=== PATIENT | female | born 1955 | race African-American/Black ===

== ENCOUNTER 2019-10-05 12:20 | Outpatient (CLI) | payer MEDICARE, SELFPAY ==
[2019-10-05 13:53] LABS: Alanine Aminotransferase 22 U/L (4-35); Albumin Level 4.2 g/dL (3.5-5.1); Alkaline Phosphatase 174 U/L (38-126); Aspartate Amino Transferase 25 U/L (14-36); Basophils Percent Auto 0.3 % (0.2-1.2); Bilirubin,Total 0.6 mg/dL (0.2-1.3); Blood Urea Nitrogen 19 mg/dL (7-17); Calcium 10.6 mg/dL (8.4-10.2); Carbon Dioxide 29 mmol/L (22-30); Chloride 102 mmol/L (98-107); Cholesterol 127 mg/dL (0-200); Eosinophils Absolute Auto 0.4 K/mm3 (0-0.3); Eosinophils Percent Auto 4.2 % (0-4.4); Estimated Glomerular Filt Rate > 60; Glucose 87 mg/dL (65-105); HDL Direct 48 mg/dL; Hematocrit 38.7 % (37.0-47.0); Immature Granulocyte Absolute 0.05 K/mm3 (0.00-0.031); Immature Granulocyte Percent A 0.6 % (0-0.5); Immature Platelet Fraction Pct 11.1 % (0.9-11.2); Lymphocytes Absolute Auto 1.93 K/mm3 (0.9-3.2); Lymphocytes Percent Auto 22.5 % (18.3-44.2); Mean Corpuscular HGB Conc 33.6 g/dl (32-36); Mean Corpuscular Hemoglobin 25.1 pg (26-34); Mean Corpuscular Volume 74.9 fl (80-100); Mean Platelet Volume 11.3 fl (7.4-10.4); Monocytes Absolute Auto 0.6 K/mm3 (0.1-0.6); Monocytes Percent Auto 6.6 % (2.6-8.5); Neutrophils Absolute Auto 5.6 K/mm3 (1.3-6.7); Neutrophils Percent Auto 65.8 % (45.5-73.1); Platelet Count Result 257 k/mm3 (150-375); Red Blood Count 5.17 M/mm3 (4.2-5.4); Sodium 140 mmol/L (137-145); Triglycerides 78 mg/dL (<150); White Blood Count 8.6 K/mm3 (4.5-10.0)
[2019-10-05 13:59] LABS: Hemoglobin A1C 5.2 % (<5.7)
[2019-10-05 14:05] LABS: LDL Cholesterol Direct 37 mg/dL
[2019-10-05 14:21] LABS: Parathyroid Intact 121.1 pg/mL (7.5-53.5)
[2019-10-05 14:25] LABS: Vitamin D 25 Hydroxy 52.8 ng/mL
[2019-10-08 19:45] LABS: Ionized Calcium 5.8 mg/dL (4.8-5.6)
== END 2019-10-05 12:21 | disposition home or self-care (01) ==
PROVIDERS: PCP Family Medicine; Visit Provider Family Medicine
DX: E78.5 Hyperlipidemia, unspecified (principal); E55.9 Vitamin D deficiency, unspecified; R63.2 Polyphagia; Z13.29 Encounter for screening for other suspected endocrine disorder; R73.9 Hyperglycemia, unspecified; I10 Essential (primary) hypertension
CPT/HCPCS: 36415; 80053; 80061; 82248; 82306; 82330; 83036; 83970; 84443; 85025; 85055

== ENCOUNTER 2020-06-25 11:00 | Emergency (ER) | payer MEDICARE, SELFPAY ==
--- NOTE | ~2020-06-25 | XR_ITS ---
EXAMINATION: XR chest 2V 06/25/2020 12:25 INDICATION: Dyspnea, wheezing. Hypertension. PROCEDURE: 2 view chest COMPARISON: 04/01/2019 FINDINGS: The lungs are clear. The cardiomediastinal silhouette is within normal limits. There are no pleural effusions. There is no pneumothorax suspected. IMPRESSION: 1: NO ACUTE CARDIOPULMONARY DISEASE. Reviewed, dictated and finalized at location A. [employer]
--- NOTE | 2020-06-25 11:11 | ED.SOB ---
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 Patient noted to have increased work of breathing, audible wheezing and was sent to our emergency department for evaluation. At the time of assessment, patient has no complaints. She denies any chest pain, shortness of breath. She does report some mild wheezing which she experiences quite chronically over the past several years. She denies any leg swelling, calf pain. She denies pleuritic pain. She denies fever, chills, cough, rhinorrhea or congestion. She denies recent sick contacts. Patient states she feels like this all the time and her breathing is no different than it typically is. Patient has never been diagnosed with COPD or emphysema. She is a prior smoker. Per nursing report, patient had audible wheezing and increased work of breathing after ambulating from triage. Related Data Home Medications Medication Instructions Recorded Confirmed aspirin [Adult Aspirin] 81 mg PO DAILY 06/25/20 calcium phos,dibas-vitamin D3 tablet PO 06/25/20 06/25/20 [Vitamin D (with calcium)] chlorthalidone 25 mg PO 06/25/20 losartan 50 mg PO 06/25/20 Allergies Allergy/AdvReac Type Severity Reaction Status Date / Time No Known Allergies Allergy Unverified 06/25/20 11:20 Review of Systems Review of Systems: Narrative: CONSTITUTIONAL: Denies fever, chills, or sweats. ENT: Denies rhinorrhea, congestion, sore throat, or otalgia. CARDIOVASCULAR: Denies chest pain, palpitations, or leg edema. RESPIRATORY: Denies cough or dyspnea. However, patient noted to be dyspneic with wheezing when coming from triage. GASTROINTESTINAL: Denies abdominal pain, nausea, vomiting, or diarrhea. GENITOURINARY: Denies dysuria or hematuria. SKIN: Denies rash or itching. MUSCULOSKELETAL: Denies back pain, joint pain, or myalgia. NEUROLOGIC: Denies headache, numbness, or weakness. FOR[facility]LY [facility] Past Medical History Medical History Anemia GI bleeding Hypertension Osteoporosis Urinary tract infection Surgical History Surgical History History of tonsillectomy Social History Social History (Updated 06/25/20 @ 11:32 by Doreen Manzo MD) Smoking status: Former smoker Tobacco type: cigarettes Alcohol intake: never Substance use: never Gender identity (if verbalized by the patient): Female Exam Narrative: Exam Narrative: GENERAL: Awake, alert, conversant HEAD: Normocephalic, atraumatic. EYES: PERRLA and EOMI. ENT: Nares clear, no rhinorrhea or epistaxis. Mucous membranes moist. NECK: Supple. CHEST: No respiratory distress, breathing even and non labored, slight expiratory wheezing noted on auscultation of lungs, present bilaterally, no tachypnea HEART: Regular rate, sinus rhythm ABDOMEN:Non distended, non tender EXTREMITIES: Normal range of motion. No edema. SKIN: Warm, dry, no rash. NEURO:No focal deficits. 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 Patient does
[2020-06-25 11:12] VITALS: BP 182/92; PULSE 72; RESP 18; TEMP 36.7; O2SAT 100
[2020-06-25 11:19] VITALS: PULSE 68
[2020-06-25 11:39] VITALS: PULSE 68; RESP 18
[2020-06-25] MEDS: ALBUTEROL SULFATE NEB 2.5 MG/0.5 ML INH 5 MG INHALATION (11:39)
[2020-06-25] MEDS: IPRATROPIUM BR 0.02% INH SOLN 0.5 MG/2.5 ML VIAL INHALATION (11:40)
[2020-06-25 11:47] VITALS: BP 183/84; PULSE 70; RESP 11; O2SAT 100
[2020-06-25 11:52] VITALS: PULSE 68; RESP 18
[2020-06-25 12:03] LABS: NT Pro B Type Natriuretic Pept 116 PG/ML (5-100)
[2020-06-25] MEDS: predniSONE 20 MG TABLET 60 MG PO (12:37)
[2020-06-25 13:29] LABS: Basophils Absolute Auto 0.1 K/mm3 (0.0-0.1); Basophils Percent Auto 0.5 % (0.2-1.2); Eosinophils Absolute Auto 0.4 K/mm3 (0-0.3); Eosinophils Percent Auto 3.5 % (0-4.4); Hematocrit 40.2 % (37.0-47.0); Hemoglobin 13.7 g/dL (12.0-15.0); Immature Granulocyte Absolute 0.04 K/mm3 (0.00-0.031); Immature Granulocyte Percent A 0.4 % (0-0.5); Lymphocytes Absolute Auto 2.24 K/mm3 (0.9-3.2); Lymphocytes Percent Auto 21.2 % (18.3-44.2); Mean Corpuscular HGB Conc 34.1 g/dl (32-36); Mean Corpuscular Hemoglobin 27.3 pg (26-34); Mean Corpuscular Volume 80.1 fl (80-100); Mean Platelet Volume 12.4 fl (7.4-10.4); Monocytes Absolute Auto 0.8 K/mm3 (0.1-0.6); Monocytes Percent Auto 7.3 % (2.6-8.5); Neutrophils Absolute Auto 7.1 K/mm3 (1.3-6.7); Neutrophils Percent Auto 67.1 % (45.5-73.1); Platelet Count Result 249 k/mm3 (150-375); Red Blood Count 5.02 M/mm3 (4.2-5.4); Red Cell Distribution Width 14.7 % (11.5-14.5); White Blood Count 10.6 K/mm3 (4.5-10.0)
[2020-06-25 13:40] LABS: Anion Gap 8 mmol/L (8-16); Blood Urea Nitrogen 18 mg/dL (7-17); Calcium 10.7 mg/dL (8.4-10.2); Carbon Dioxide 31 mmol/L (22-30); Chloride 101 mmol/L (98-107); Estimated CRCL calculation 93 ml/min; Estimated Glomerular Filt Rate > 60; Glucose 107 mg/dL (65-105); Sodium 140 mmol/L (137-145)
[2020-06-25 13:46] LABS: Potassium 4.2 mmol/L (3.4-5.0)
[2020-06-25 13:50] VITALS: BP 182/77; PULSE 68; RESP 18; O2SAT 98
== END 2020-06-25 13:51 | disposition home or self-care (01) ==
PROVIDERS: Emergency Provider Emergency Medicine; PCP Family Medicine
DX: R06.2 Wheezing (principal); I10 Essential (primary) hypertension; Z86.2 Personal history of diseases of the blood and blood-forming organs and certain disorders involving the immune mechanism; Z79.82 Long term (current) use of aspirin; M81.0 Age-related osteoporosis without current pathological fracture; Z87.440 Personal history of urinary (tract) infections; Z87.891 Personal history of nicotine dependence
CPT/HCPCS: 36415; 71046; 80048; 83880; 85025; 94640; 99283; J7512

== ENCOUNTER 2020-11-27 09:36 | Outpatient (CLI) | payer MEDICARE, SELFPAY ==
--- NOTE | ~2020-11-27 | CT_ITS ---
EXAMINATION: CT brain wo con DATE: 11/27/2020 10:16 INDICATION: Transient altered mental status TECHNIQUE: Computed tomography (CT) of the head was performed without intravenous contrast. The dose- length product was 605.33 mGy-cm. No prior studies for comparison. COMPARISON: CT dated 03/27/2019 FINDINGS: Generalized atrophy. There are multiple chronic bilateral lacunar infarctions There are sca ttered moderate periventricular and subcortical white matter changes, most likely related to small ve ssel ischemic disease (microangiopathy). No ventriculomegaly or midline shift. Basilar cisterns are p atent. There is intracranial atherosclerosis. Paranasal sinuses and mastoids are pneumatized. No depr essed skull fractures. IMPRESSION: 1. No acute intracranial abnormality. 2: Chronic bilateral lacunar infarctions. 3: Chronic age-related findings. Reviewed, dictated and finalized at location B.
== END 2020-11-27 09:37 | disposition home or self-care (01) ==
PROVIDERS: PCP Family Medicine; Visit Provider Nurse Practitioner Family
DX: R41.82 Altered mental status, unspecified (principal); R93.0 Abnormal findings on diagnostic imaging of skull and head, not elsewhere classified
CPT/HCPCS: 70450

== ENCOUNTER 2020-11-27 20:42 | Inpatient (IN) | payer MEDICARE, SELFPAY ==
--- NOTE | ~2020-11-27 | XR_ITS ---
EXAMINATION: XR chest 2V EXAM DATE: 11/28/2020 14:07 INDICATION: Wheezing and leukocytosis. TECHNIQUE: Frontal and lateral projections of the chest obtained and reviewed. Comparison is made to prior examination from 06/25/2020. FINDINGS: The lungs are clear. There are no pleural effusions. Cardiac silhouette is prominent but magnified on this AP technique. There is no pneumothorax suspected. The bones and soft tissues are unremarkable. IMPRESSION: No acute cardiopulmonary findings. Reviewed, dictated and finalized at location A.
--- NOTE | ~2020-11-27 | US_ITS ---
EXAMINATION:US venous doppler LE RT INDICATION:Right lower extremity pain TECHNIQUE: Multiple grayscale, color flow and Doppler images of the right lower extremity deep venous systems were obtained and reviewed. COMPARISON:No prior studies for comparison. FINDINGS: The common femoral, superficial femoral and popliteal veins demonstrate normal respiratory variation, augmentation and compressibility. Color flow is also seen within the posterior tibial, pe roneal, greater saphenous and profunda veins. IMPRESSION: 1: No lower extremity deep venous thrombosis. Reviewed, dictated and finalized at location B.
[2020-11-27 21:43] VITALS: BP 147/74; PULSE 78; RESP 18; TEMP 36.1; O2SAT 100
[2020-11-27 22:03] LABS: Basophils Absolute Auto 0.1 K/mm3 (0.0-0.1); Basophils Percent Auto 0.5 % (0.2-1.2); Eosinophils Absolute Auto 0.1 K/mm3 (0-0.3); Eosinophils Percent Auto 1.2 % (0-4.4); Hematocrit 39.1 % (37.0-47.0); Hemoglobin 13.4 g/dL (12.0-15.0); Immature Granulocyte Absolute 0.06 K/mm3 (0.00-0.031); Immature Granulocyte Percent A 0.5 % (0-0.5); Lymphocytes Absolute Auto 1.47 K/mm3 (0.9-3.2); Lymphocytes Percent Auto 13.2 % (18.3-44.2); Mean Corpuscular HGB Conc 34.3 g/dl (32-36); Mean Corpuscular Hemoglobin 26.6 pg (26-34); Mean Corpuscular Volume 77.7 fl (80-100); Mean Platelet Volume 11.2 fl (7.4-10.4); Monocytes Absolute Auto 1.2 K/mm3 (0.1-0.6); Monocytes Percent Auto 10.9 % (2.6-8.5); Neutrophils Absolute Auto 8.2 K/mm3 (1.3-6.7); Neutrophils Percent Auto 73.7 % (45.5-73.1); Platelet Count Result 278 k/mm3 (150-375); Red Blood Count 5.03 M/mm3 (4.2-5.4); Red Cell Distribution Width 14.4 % (11.5-14.5); White Blood Count 11.1 K/mm3 (4.5-10.0)
[2020-11-27 22:13] LABS: Alanine Aminotransferase 22 U/L (4-35); Albumin Level 3.7 g/dL (3.5-5.1); Alkaline Phosphatase 116 U/L (38-126); Anion Gap 4 mmol/L (8-16); Aspartate Amino Transferase 27 U/L (14-36); Bilirubin,Total 0.4 mg/dL (0.2-1.3); Blood Urea Nitrogen 17 mg/dL (7-17); Calcium 10.7 mg/dL (8.4-10.2); Carbon Dioxide 33 mmol/L (22-30); Chloride 104 mmol/L (98-107); Estimated Glomerular Filt Rate > 60; Glucose 114 mg/dL (65-105); INR 0.9; Potassium 3.6 mmol/L (3.4-5.0); Prothrombin Time 13.2 Seconds (11.1-14.7); Sodium 141 mmol/L (137-145)
[2020-11-27 22:15] LABS: Partial Thromboplastin Time 24.2 SECONDS (22.3-36.8)
[2020-11-27 22:22] LABS: NT Pro B Type Natriuretic Pept 155 pg/mL (5-100)
[2020-11-27 23:07] VITALS: BP 149/79; PULSE 75; RESP 16; TEMP 35.9; O2SAT 99
[2020-11-27 23:35] VITALS: PULSE 80; RESP 16; O2SAT 98
[2020-11-27 23:47] VITALS: PULSE 79; RESP 20
--- NOTE | 2020-11-27 23:57 | ED.EXTPRO ---
HPI - Extremity Problem General Chief complaint: Extremity Problem,Nontraumatic Stated complaint: R leg weeping Time Seen by Provider: 11/27/20 23:33 Source: patient Mode of arrival: ambulatory Limitations: no limitations History of Present Illness HPI Narrative: Patient is a 65-year-old female complaining of right lower extremity pain, redness, swelling and wound which she states started approximately a week ago and worse the past few days. Patient denies any chest pain, shortness of breath abdominal pain, nausea, vomiting, fever or chills. Related Data Home Medications Medication Instructions Recorded Confirmed aspirin [Adult Aspirin] 81 mg PO DAILY 06/25/20 calcium phos,dibas-vitamin D3 tablet PO 06/25/20 06/25/20 [Vitamin D (with calcium)] chlorthalidone 25 mg PO 06/25/20 losartan 50 mg PO 06/25/20 Allergies Allergy/AdvReac Type Severity Reaction Status Date / Time No Known Allergies Allergy Verified 11/27/20 21:45 Review of Systems Review of Systems: All systems reviewed & are unremarkable except as noted in HPI and below Constitutional: Constitutional: Denies body ache(s), Denies chills, Denies excessive sweating, Denies fatigue, Denies fever(s), Denies headache(s), Denies lethargy, Denies malaise, Denies weakness and Denies weight loss Eyes: Eyes: Denies blurry vision, Denies change in vision and Denies loss of vision ENT: Denies dizziness, Denies ear discharge, Denies headache(s), Denies lip swelling, Denies epistaxis, Denies nasal congestion, Denies neck pain, Denies throat swelling and Denies tongue swelling Cardiovascular: Cardiovascular: Denies chest pain, Denies chest pain at rest, Denies chest pain with activity, Denies diaphoresis, Denies rapid heart rate, Denies edema, Denies irregular heart rhythm, Denies lightheadedness, Denies palpitations, Denies dyspnea and Denies dyspnea on exertion Respiratory: Respiratory: Denies chest congestion, Denies cough, Denies hemoptysis, Denies dyspnea and Denies dyspnea on exertion Gastrointestinal: Gastrointestinal: Denies abdominal pain, Denies melena, Denies hematochezia, Denies diarrhea, Denies nausea, Denies vomiting and Denies hematemesis Musculoskeletal: Musculoskeletal: Denies abnormal gait, Denies deformity, Denies joint swelling, Denies limited range of motion, Denies neck pain and Denies numbness Neurologic: Denies Abnormal speech present, Denies abnormal gait, Denies confusion, Denies dizziness, Denies headache(s), Denies focal weakness, Denies loss of vision, Denies numbness, Denies Other visual disturbances, Denies Sensory deficit (Neuro) and Denies weakness Psychiatric: Psychiatric: Denies confusion, Denies depression, Denies auditory hallucinations, Denies homicidal ideation and Denies suicidal ideation Endocrine: Endocrine: Denies cold intolerance, Denies excessive sweating, Denies fatigue, Denies heat intolerance and Denies palpitations Hematologic/Lymphatic: Hematologic/Lymphatic: Denies easy bleeding and Denies easy bruising Allergic/Immunologic: Allergic/Immunologic: Denies lip swelling, Denies throat swelling and Denies tongue swelling PMFSH Past Medical History Medical History Anemia GI bleeding Hypertension Osteoporosis Urinary tract infection Surgical History Surgical History History of tonsillectomy Social History Social History Smoking status: Former smoker Tobacco type: cigarettes Alcohol intake: never Substance use: never Gender identity (if verbalized by the patient): Female Exam Const: General: cooperative, healthy appearing, comfortable, no acute distress, well developed, alert and awake; No confusion Orientation/consciousness: oriented to person, oriented to place, oriented to time, patient oriented x3 and No confusion Limitations: no limit
[2020-11-28] VITALS (14 sets, daily range): BP systolic 133–159; BP diastolic 63–74; PULSE 68–88; RESP 12–21; TEMP 36.6–37.1; O2SAT 92–100; BMI 42.1
[2020-11-28] MEDS: HYDROmorphone HCL INJ (*CRX) 1 MG/ML SYR 0.5 MG IV PUSH ×2 (00:35→02:55)
[2020-11-28] MEDS: HYDROcodone/acetaminophen (*CRX) 5-325 MG TABLET 1 TAB PO (00:41)
--- NOTE | 2020-11-28 03:02 | ADMGEN ---
This patient, Rosina Soria, was admitted to 2 Medical Room 245-. Patient/family oriented to hospital policies and general routines including ID bracelet, bed and alarms, visiting hours, pain management, procedures, bathroom and other care routines, personal items, smoking policy, room service/diet, and visiting hours. Information on how to activate the Rapid Response Team has been discussed. Patient/Family are encouraged to report perceived risks to care and to ask questions if they do not understand what they are told or what they should do.
[2020-11-28] MEDS: LOSARTAN POTASSIUM 50 MG TABLET PO (08:56)
[2020-11-28] MEDS: CHLORTHALIDONE 25 MG TABLET PO (08:56)
[2020-11-28] MEDS: ENOXAPARIN 40 MG/0.4 ML SYRINGE SUB-Q (08:57)
[2020-11-28] MEDS: ASPIRIN 81 MG ENTERIC TABLET PO (08:57)
[2020-11-28] MEDS: traMADol HCL (*CRX) 25 MG TABLET PO ×3 (08:59→20:04)
[2020-11-28] MEDS: ALBUTEROL SULFATE (*SP) AEROSOL 1 PUFF 2 PUFF INHALATION (10:03)
--- NOTE | 2020-11-28 13:04 | PM.IMHP ---
H&P: HPI History of Present Illness Date/Time: 11/28/20 13:04 Chief Complaint: Leg wound Narrative: This is a 65 year old woman with history of HTN, hyperparathyroidism, who presented to the ER with complaints of increased weeping to her right lower extremity for the last 2 weeks. Patient states she has not is increased weeping to her legs. The patient's daughter states she sleeps in a chair with her legs on the floor. Over the last 2 weeks she has had increased weeping of her right leg as well as increased pain. She saw her PCP but stated nothing was done and so they came to the ER. The patient has not been able to get around very well at home on her own. Denies any fevers, chills, chest pain, shortness of breath, cough, nausea, vomiting, abdominal pain, leg swelling, redness, lightheadedness, dizziness, urinary symptoms or any other symptoms at this time. Vitals show she is afebrile, non tachycardic, normal respiratory rate and oxygenation on room air, blood pressure slightly elevated at 140 7/74. Initial labs show slight elevation of WBCs at 11,100, with a left shift to 73%. Normal coag panel. Normal CMP other than slightly elevated CO2 at 33, glucose 114, Calcium 10.7. Normal LFTs. BNP slightly elevated at 155. CT Head showed no acute intracranial abnormality. Chronic bilateral lacunar infarctions. Chronic age-related findings. Code Status- Full Code POA- DaughterKirstie PCP- Dr. Arroyo Review of Systems Review of Systems: All systems reviewed & are unremarkable except as noted in HPI and below PMFSH Past Medical History Medical History Anemia GI bleeding Hyperparathyroidism Hypertension Osteoporosis Urinary tract infection Surgical History Surgical History History of tonsillectomy Social History Social History (Updated 11/28/20 @ 13:26 by Deborah Cespedes PA-C) Smoking status: Never smoker Tobacco type: cigarettes Alcohol intake: never Substance use: never Living arrangements: with family Additional living arrangements comments: Lives with Daughter Kirstie Occupation/Education: retired Gender identity (if verbalized by the patient): Female Spiritual care concerns: No Meds Home Medications and Allergies Home Medications Medication Instructions Recorded Confirmed Type aspirin [Adult Aspirin] 81 mg PO DAILY 06/25/20 11/28/20 History calcium phos,dibas-vitamin D3 See Rx Instructions .ROUTE .COMPLEX 06/25/20 11/28/20 History [Vitamin D (with calcium)] chlorthalidone 25 mg PO DAILY 06/25/20 11/28/20 History losartan 50 mg PO DAILY 06/25/20 11/28/20 History prednisone 60 mg PO DAILY 5 Days #15 tablet 06/25/20 11/28/20 Rx Allergies Allergy/AdvReac Type Severity Reaction Status Date / Time No Known Allergies Allergy Verified 11/27/20 21:45 Vital Signs Vital Signs - 24 hr 11/27/20 21:43 11/27/20 23:07 11/27/20 23:35 Temperature 97.0 F L 96.6 F L Pulse Rate 78 75 80 Respiratory Rate 18 16 16 Blood Pressure 147/74 H 149/79 H Pulse Oximetry 100 99 98 11/27/20 23:47 11/28/20 00:01 11/28/20 00:29 Temperature Pulse Rate 79 78 79 Respiratory Rate 20 17 18 Blood Pressure Pulse Oximetry 11/28/20 00:31 11/28/20 00:39 11/28/20 01:16 Temperature Pulse Rate 88 81 70 Respiratory Rate 18 16 13 Blood Pressure 159/68 H Pulse Oximetry 11/28/20 01:30 11/28/20 01:45 11/28/20 02:00 Temperature Pulse Rate 73 69 68 Respiratory Rate 12 13 12 Blood Pressure Pulse Oximetry 96 11/28/20 02:15 11/28/20 02:50 11/28/20 06:25 Temperature 98.1 F 98.6 F Pulse Rate 71 75 84 Respiratory Rate 12 20 21 H Blood Pressure 140/74 148/66 H Pulse Oximetry 96 98 100 11/28/20 08:51 Temperature Pulse Rate Respiratory Rate Blood Pressure Pulse Oximetry 92 Exam Narrative: Exam Narrative: General: 65-year-old w
[2020-11-28] MEDS: SILVERGEL (ELTA) 45 ML 1 APPLIC TOPICAL (16:37)
[2020-11-28] MEDS: ACETAMINOPHEN 325 MG TABLET 650 MG PO (21:17)
[2020-11-29] MEDS: traMADol HCL (*CRX) 50 MG TABLET PO ×4 (01:25→21:04)
[2020-11-29] MEDS: ACETAMINOPHEN 325 MG TABLET 650 MG PO ×2 (04:25→08:11)
[2020-11-29 05:43] LABS: Basophils Percent Auto 0.3 % (0.2-1.2); Eosinophils Absolute Auto 0.2 K/mm3 (0-0.3); Eosinophils Percent Auto 1.7 % (0-4.4); Hematocrit 38.3 % (37.0-47.0); Hemoglobin 12.8 g/dL (12.0-15.0); Immature Granulocyte Absolute 0.05 K/mm3 (0.00-0.031); Immature Granulocyte Percent A 0.4 % (0-0.5); Lymphocytes Absolute Auto 1.62 K/mm3 (0.9-3.2); Mean Corpuscular HGB Conc 33.4 g/dl (32-36); Mean Corpuscular Hemoglobin 26.3 pg (26-34); Mean Corpuscular Volume 78.8 fl (80-100); Mean Platelet Volume 10.8 fl (7.4-10.4); Monocytes Absolute Auto 1.1 K/mm3 (0.1-0.6); Monocytes Percent Auto 9.6 % (2.6-8.5); Neutrophils Absolute Auto 8.6 K/mm3 (1.3-6.7); Platelet Count Result 296 k/mm3 (150-375); Red Blood Count 4.86 M/mm3 (4.2-5.4); Red Cell Distribution Width 14.4 % (11.5-14.5); White Blood Count 11.6 K/mm3 (4.5-10.0)
[2020-11-29 05:59] LABS: Anion Gap 3 mmol/L (8-16); Blood Urea Nitrogen 15 mg/dL (7-17); Calcium 10.7 mg/dL (8.4-10.2); Carbon Dioxide 33 mmol/L (22-30); Chloride 104 mmol/L (98-107); Estimated CRCL calculation 75 ml/min; Estimated Glomerular Filt Rate > 60; Glucose 90 mg/dL (65-105); Magnesium 1.9 mg/dL (1.6-2.3); Potassium 3.4 mmol/L (3.4-5.0); Sodium 140 mmol/L (137-145)
[2020-11-29 06:00] VITALS: BP 154/80; PULSE 75; RESP 18; TEMP 36.4; O2SAT 96
[2020-11-29] MEDS: CHLORTHALIDONE 25 MG TABLET PO (09:55)
[2020-11-29] MEDS: LOSARTAN POTASSIUM 50 MG TABLET PO (09:55)
[2020-11-29] MEDS: ENOXAPARIN 40 MG/0.4 ML SYRINGE SUB-Q (09:55)
[2020-11-29] MEDS: ASPIRIN 81 MG ENTERIC TABLET PO (09:55)
[2020-11-29] MEDS: SILVERGEL (ELTA) 45 ML 1 APPLIC TOPICAL (09:56)
[2020-11-29] MEDS: ALBUTEROL SULFATE (*SP) AEROSOL 1 PUFF 2 PUFF INHALATION (09:59)
--- NOTE | 2020-11-29 10:06 | PM.IMPN ---
Progress Note: A&P Assessment and Plan (1) Leukocytosis: Code(s): D72.829 - Elevated white blood cell count, unspecified Status: Acute Assessment and Plan: Patient had leukocytosis on arrival. Started on IV Zosyn for possible cellulitis, but after wound care evaluated it there was no signs of infection. I checked chest x-ray yesterday which shows no acute cardiopulmonary disease. Will check a urinalysis, but the patient denies any urinary symptoms at this time. The UA could also be abnormal since she has already received a few doses of antibiotics before was discontinued. Will recheck labs in the morning. (2) Leg wound, right: Qualifiers: Encounter type: initial encounter Qualified Code(s): S81.801A - Unspecified open wound, right lower leg, initial encounter Code(s): S81.801A - Unspecified open wound, right lower leg, initial encounter Status: Acute Assessment and Plan: Patient was admitted to the hospital for right leg cellulitis, with further evaluation examination the patient has chronic venous stasis with open weeping wounds to anterior and posterior lower extremity. Wound care and myself evaluated the patient and after cleaning the patient's leg well we found normal tissue. No signs of deep ulcerations or cellulitis. At this time I will discontinue IV antibiotics. Do not believe she has an acute cellulitis infection. Will continue wound care's recommendations. Daily apply silver gel to open wound on the right lower leg, cover with ABD pad and roll gauze. Cleanse legs and feet daily with soap and water. apply lotion to closed dry scale areas. (3) Chronic venous stasis: Code(s): I87.8 - Other specified disorders of veins Status: Acute Assessment and Plan: See above. (4) Hypertension: Code(s): I10 - Essential (primary) hypertension Status: Inactive Assessment and Plan: BP this morning 148/66 prior to her home medications being given. Continue monitoring. (5) Hyperparathyroidism: Code(s): E21.3 - Hyperparathyroidism, unspecified Status: Inactive Assessment and Plan: Continue Vitamin D upon discharge. Follow up with PCP. (6) Weakness: Code(s): R53.1 - Weakness Status: Acute Assessment and Plan: Most likely from deconditioning. Could also be from leg pain and symptoms. Ordered PT/OT for further evaluation (7) Leg pain: Code(s): M79.606 - Pain in leg, unspecified Status: Acute Assessment and Plan: Having significant leg pain when someone is touching her but also when no one is in her room. Unsure exactly how much pain she is in. Will treat with Tylenol and tramadol p.r.n.. (8) Wheezing: Code(s): R06.2 - Wheezing Status: Acute Assessment and Plan: Patient had wheezing on examination. She denies smoking history. Will order chest x-ray Will order albuterol inhaler p.r.n. for wheezing or shortness of breath. Patient is otherwise asymptomatic. Continue monitoring. Additional Plan ADMITTED UNDER OBSERVATION Time Spent With Patient Time with patient: 25 - 35 minutes Subjective Date/time seen: 11/29/20 10:06 Interval history: Date of service 11/29/2020: Patient states she is feeling well today. Still having some intermittent leg pains mostly to the back of her legs. Denies any fevers, chills, nausea, vomiting, abdominal pain, diarrhea, constipation, chest pain, shortness of breath, cough, dysuria, frequent urination, odor to urine or any other symptoms at this time. Review of Systems Review of Systems: All systems reviewed & are unremarkable except as noted in HPI and below Exam Narrative: Exam Narrative: General: 65-year-old woman sitting up in bed watching TV. Appears comfortable. In no acute distress. Skin: No jaundice or
[2020-11-29 14:20] VITALS: BP 117/52; PULSE 90; RESP 18; TEMP 36.1; O2SAT 95
[2020-11-29 17:01] LABS: Add Urine Microscopic? YES; Appearance Urine Clear (Clear); Bilirubin Urine Negative (Negative); Blood Urine Negative (Negative); Color Urine Yellow (Yellow); Glucose Urine UA Negative (Negative); Ketones Urine Negative (Negative); Leukocyte Esterase Ur Negative LEU/UL (Negative); Mucus Urine Rare /lpf; Nitrate Urine Negative (Negative); Protein Urine 1+ mg/dL (Negative); RBC Urine 0-2 /hpf (0-2); Specific Grav Ur 1.019 (1.001-1.035); Squamous Epithelial Cell Urine Rare /hpf (Few); WBC Urine 0-3 /hpf
[2020-11-29 22:00] VITALS: BP 128/88; PULSE 95; RESP 18; TEMP 36.2; O2SAT 96
[2020-11-30] MEDS: traMADol HCL (*CRX) 50 MG TABLET PO ×3 (03:37→13:23)
[2020-11-30 06:00] VITALS: BP 148/86; PULSE 83; RESP 20; TEMP 36.2; O2SAT 96
[2020-11-30 06:24] LABS: Basophils Percent Auto 0.3 % (0.2-1.2); Eosinophils Absolute Auto 0.2 K/mm3 (0-0.3); Eosinophils Percent Auto 1.6 % (0-4.4); Hematocrit 37.8 % (37.0-47.0); Hemoglobin 12.8 g/dL (12.0-15.0); Immature Granulocyte Absolute 0.07 K/mm3 (0.00-0.031); Immature Granulocyte Percent A 0.5 % (0-0.5); Lymphocytes Absolute Auto 1.66 K/mm3 (0.9-3.2); Lymphocytes Percent Auto 12.2 % (18.3-44.2); Mean Corpuscular HGB Conc 33.9 g/dl (32-36); Mean Corpuscular Hemoglobin 26.4 pg (26-34); Mean Corpuscular Volume 78.1 fl (80-100); Mean Platelet Volume 10.6 fl (7.4-10.4); Monocytes Absolute Auto 1.2 K/mm3 (0.1-0.6); Monocytes Percent Auto 8.5 % (2.6-8.5); Neutrophils Absolute Auto 10.5 K/mm3 (1.3-6.7); Neutrophils Percent Auto 76.9 % (45.5-73.1); Platelet Count Result 315 k/mm3 (150-375); Red Blood Count 4.84 M/mm3 (4.2-5.4); Red Cell Distribution Width 14.4 % (11.5-14.5); White Blood Count 13.6 K/mm3 (4.5-10.0)
[2020-11-30 06:33] LABS: Anion Gap 1 mmol/L (8-16); Blood Urea Nitrogen 17 mg/dL (7-17); Calcium 10.6 mg/dL (8.4-10.2); Carbon Dioxide 36 mmol/L (22-30); Chloride 101 mmol/L (98-107); Estimated CRCL calculation 75 ml/min; Estimated Glomerular Filt Rate > 60; Glucose 92 mg/dL (65-105); Magnesium 1.8 mg/dL (1.6-2.3); Potassium 3.8 mmol/L (3.4-5.0); Sodium 138 mmol/L (137-145)
[2020-11-30] MEDS: LOSARTAN POTASSIUM 50 MG TABLET PO (08:00)
[2020-11-30] MEDS: ENOXAPARIN 40 MG/0.4 ML SYRINGE SUB-Q (08:00)
[2020-11-30] MEDS: ASPIRIN 81 MG ENTERIC TABLET PO (08:00)
[2020-11-30] MEDS: CHLORTHALIDONE 25 MG TABLET PO (08:00)
[2020-11-30] MEDS: SILVERGEL (ELTA) 45 ML 1 APPLIC TOPICAL (08:00)
--- NOTE | 2020-11-30 09:16 | PM.IMPN ---
Progress Note: A&P Assessment and Plan (1) Cellulitis of right lower extremity: Code(s): L03.115 - Cellulitis of right lower limb Status: Acute Assessment and Plan: Patient had leukocytosis on arrival. Started on IV Zosyn for possible cellulitis, but after wound care evaluated it there was no signs of infection. I checked chest x-ray yesterday which shows no acute cardiopulmonary disease. Urinalysis unremarkable. 11/30/20- leukocytosis increasing and neutrophils. On examination today, more prominent Cellulitis to right anterolateral lower extremity. Will obtain wound culture, blood cultures and start IV Zosyn. Will recheck labs in the morning. (2) Leg wound, right: Qualifiers: Encounter type: initial encounter Qualified Code(s): S81.801A - Unspecified open wound, right lower leg, initial encounter Code(s): S81.801A - Unspecified open wound, right lower leg, initial encounter Status: Acute Assessment and Plan: Patient was admitted to the hospital for right leg cellulitis, with further evaluation examination the patient has chronic venous stasis with open weeping wounds to anterior and posterior lower extremity. Wound care and myself evaluated the patient and after cleaning the patient's leg well we found normal tissue. No signs of deep ulcerations or cellulitis. At this time I will discontinue IV antibiotics 11/28. Continue wound care's recommendations- Daily apply silver gel to open wound on the right lower leg, cover with ABD pad and roll gauze. Cleanse legs and feet daily with soap and water. apply lotion to closed dry scale areas. 11/30/20- increased redness, warmth to right lower extremity signs of cellulitis. Will start Abx. (3) Chronic venous stasis: Code(s): I87.8 - Other specified disorders of veins Status: Acute Assessment and Plan: See above. (4) Hypertension: Code(s): I10 - Essential (primary) hypertension Status: Inactive Assessment and Plan: BP this morning 148/86, slightly elevated, prior to her home medications being given. Continue monitoring. (5) Hyperparathyroidism: Code(s): E21.3 - Hyperparathyroidism, unspecified Status: Inactive Assessment and Plan: Continue Vitamin D upon discharge. Follow up with PCP. (6) Weakness: Code(s): R53.1 - Weakness Status: Acute Assessment and Plan: Most likely from deconditioning vs acute infection. Could also be from leg pain and symptoms. Ordered PT/OT for further evaluation (7) Leg pain: Code(s): M79.606 - Pain in leg, unspecified Status: Acute Assessment and Plan: Having significant leg pain when someone is touching her but also when no one is in her room. Unsure exactly how much pain she is in. No DVT noted to lower extremities. On Lovenox for DVT prophylasix. Will treat with Tylenol and tramadol p.r.n.. (8) Wheezing: Code(s): R06.2 - Wheezing Status: Acute Assessment and Plan: Patient had wheezing on examination. Prior history of smoking 10 years ago. Chest x-ray shows no acute abnormality. Continue albuterol inhaler p.r.n. for wheezing or shortness of breath. Patient is otherwise asymptomatic. Continue monitoring. Time Spent With Patient Time with patient: 25 - 35 minutes Subjective Date/time seen: 11/30/20 09:16 Interval history: Date of service 11/30/2020: Patient states she is feeling well today. She ate breakfast and now taking a nap. Still having some intermittent leg pains mostly to the back of her legs. Denies any fevers, chills, nausea, vomiting, abdominal pain, diarrhea, constipation, chest pain, shortness of breath, cough, dysuria, frequent urination, odor to urine or any other symptoms at this time. Review of Systems Review of Systems: All systems reviewed & are unremarkable except as n
[2020-11-30] MEDS: ACETAMINOPHEN 325 MG TABLET 650 MG PO (10:02)
[2020-11-30] MEDS: ALBUTEROL SULFATE (*SP) AEROSOL 1 PUFF 2 PUFF INHALATION (10:02)
[2020-11-30 14:00] VITALS: BP 153/76; PULSE 75; RESP 20; TEMP 36.4; O2SAT 97
[2020-11-30 20:00] VITALS: PULSE 75; RESP 18; O2SAT 96
[2020-11-30 21:01] VITALS: BP 135/71; PULSE 75; RESP 18; TEMP 36; O2SAT 96
[2020-12-01] MEDS: traMADol HCL (*CRX) 25 MG TABLET PO ×2 (00:45→07:01)
[2020-12-01 05:21] LABS: Basophils Percent Auto 0.3 % (0.2-1.2); Eosinophils Absolute Auto 0.2 K/mm3 (0-0.3); Eosinophils Percent Auto 1.5 % (0-4.4); Hematocrit 33.5 % (37.0-47.0); Hemoglobin 11.6 g/dL (12.0-15.0); Immature Granulocyte Absolute 0.08 K/mm3 (0.00-0.031); Immature Granulocyte Percent A 0.6 % (0-0.5); Lymphocytes Absolute Auto 1.94 K/mm3 (0.9-3.2); Lymphocytes Percent Auto 15.2 % (18.3-44.2); Mean Corpuscular HGB Conc 34.6 g/dl (32-36); Mean Corpuscular Hemoglobin 26.1 pg (26-34); Mean Corpuscular Volume 75.5 fl (80-100); Mean Platelet Volume 10.6 fl (7.4-10.4); Monocytes Absolute Auto 1.1 K/mm3 (0.1-0.6); Monocytes Percent Auto 8.6 % (2.6-8.5); Neutrophils Absolute Auto 9.4 K/mm3 (1.3-6.7); Neutrophils Percent Auto 73.8 % (45.5-73.1); Platelet Count Result 335 k/mm3 (150-375); Red Blood Count 4.44 M/mm3 (4.2-5.4); Red Cell Distribution Width 14.3 % (11.5-14.5); White Blood Count 12.8 K/mm3 (4.5-10.0)
[2020-12-01 05:36] LABS: Anion Gap 2 mmol/L (8-16); Blood Urea Nitrogen 17 mg/dL (7-17); Calcium 10.5 mg/dL (8.4-10.2); Carbon Dioxide 35 mmol/L (22-30); Chloride 100 mmol/L (98-107); Estimated CRCL calculation 61 ml/min; Estimated Glomerular Filt Rate > 60; Glucose 90 mg/dL (65-105); Potassium 3.4 mmol/L (3.4-5.0); Sodium 137 mmol/L (137-145)
[2020-12-01 06:00] VITALS: BP 140/75; PULSE 72; RESP 16; TEMP 36.1; O2SAT 97
[2020-12-01 07:55] VITALS: O2SAT 92
[2020-12-01] MEDS: ENOXAPARIN 40 MG/0.4 ML SYRINGE SUB-Q (08:58)
[2020-12-01] MEDS: CHLORTHALIDONE 25 MG TABLET PO (08:58)
[2020-12-01] MEDS: LOSARTAN POTASSIUM 50 MG TABLET PO (08:58)
[2020-12-01] MEDS: ASPIRIN 81 MG ENTERIC TABLET PO (08:58)
[2020-12-01] MEDS: SILVERGEL (ELTA) 45 ML 1 APPLIC TOPICAL (08:59)
[2020-12-01 14:10] VITALS: BP 138/61; PULSE 83; RESP 16; TEMP 36.1; O2SAT 97
--- NOTE | 2020-12-01 14:29 | PM.IMPN ---
Progress Note: A&P Assessment and Plan (1) Cellulitis of right lower extremity: Code(s): L03.115 - Cellulitis of right lower limb Status: Acute Assessment and Plan: Patient had leukocytosis on arrival. Started on IV Zosyn for possible cellulitis, but after wound care and myself evaluated the patient her wound and skin had no signs of infection and IV abx were discontinued. The patient was needing SNF placement and during admission she developed worsening erythema to her right leg along with leukocytosis. IV antibiotics were restarted, IV Zosyn after other forms of infection were ruled out, CXR normal, UA normal. Wound cultures obtained and pending. Blood cultures obtained and pending 12/01/20- leukocytosis improving. Continue IV Zosyn until discharged to SNF. Will recheck labs in the morning. (2) Leg wound, right: Qualifiers: Encounter type: initial encounter Qualified Code(s): S81.801A - Unspecified open wound, right lower leg, initial encounter Code(s): S81.801A - Unspecified open wound, right lower leg, initial encounter Status: Acute Assessment and Plan: Continue wound care's recommendations- Daily apply silver gel to open wound on the right lower leg, cover with ABD pad and roll gauze. Cleanse legs and feet daily with soap and water. apply lotion to closed dry scale areas. (3) Chronic venous stasis: Code(s): I87.8 - Other specified disorders of veins Status: Acute Assessment and Plan: See above. (4) Hypertension: Code(s): I10 - Essential (primary) hypertension Status: Inactive Assessment and Plan: BP this morning 140/75, stable. Continue monitoring. (5) Hyperparathyroidism: Code(s): E21.3 - Hyperparathyroidism, unspecified Status: Inactive Assessment and Plan: Continue Vitamin D upon discharge. Follow up with PCP. (6) Weakness: Code(s): R53.1 - Weakness Status: Acute Assessment and Plan: Most likely from deconditioning vs acute infection. Could also be from leg pain and symptoms. Continue PT/OT and will need SNF placement (7) Leg pain: Code(s): M79.606 - Pain in leg, unspecified Status: Acute Assessment and Plan: Having significant leg pain when someone is touching her but also when no one is in her room. Unsure exactly how much pain she is in. No DVT noted to lower extremities. On Lovenox for DVT prophylasix. Will treat with Tylenol and tramadol p.r.n.. (8) Wheezing: Code(s): R06.2 - Wheezing Status: Acute Assessment and Plan: Patient had wheezing on examination. Prior history of smoking 10 years ago. Chest x-ray shows no acute abnormality. Continue albuterol inhaler p.r.n. for wheezing or shortness of breath. Patient is otherwise asymptomatic. Continue monitoring. Time Spent With Patient Time with patient: 25 - 35 minutes Subjective Date/time seen: 12/01/20 14:29 Interval history: Date of service 12/01/2020: Patient states she is feeling well today. She finished breakfast and is sitting up in the chair and ready to go back into bed. Still having some intermittent leg pains mostly to the back of her legs. Denies any fevers, chills, nausea, vomiting, abdominal pain, diarrhea, constipation, chest pain, shortness of breath, cough, dysuria, frequent urination, odor to urine or any other symptoms at this time. Review of Systems Review of Systems: All systems reviewed & are unremarkable except as noted in HPI and below Exam Narrative: Exam Narrative: General: 65-year-old woman sitting up in the chair watching TV. Appears comfortable. In no acute distress. Skin: See lower extremities. No jaundice or cyanosis. Good skin turgor. Neck: Full range of motion. Supple. Respiratory: Clear to auscultation. No wheezing, rales or rhonchi noted. No
--- NOTE | 2020-12-01 15:38 | PM.DS ---
DS: Admitting Diagnosis Admitting Diagnosis Admitting Diagnosis: Leg wound DS: Discharge Diagnosis Discharge Diagnosis (1) Cellulitis of right lower extremity: Code(s): L03.115 - Cellulitis of right lower limb Status: Acute Assessment and Plan: Patient had leukocytosis on arrival. Started on IV Zosyn for possible cellulitis, but after wound care and myself evaluated the patient her wound and skin had no signs of infection and IV abx were discontinued. The patient was needing SNF placement and during admission she developed worsening erythema to her right leg along with leukocytosis. IV antibiotics were restarted, IV Zosyn after other forms of infection were ruled out, CXR normal, UA normal. Wound cultures obtained show no organisms or WBCs. Pending final report Blood cultures no growth to date. Pending final report 12/01/20- leukocytosis improving. Will place the patient on PO Levaquin and Flagyl for 5 more days. (2) Leg wound, right: Qualifiers: Encounter type: initial encounter Qualified Code(s): S81.801A - Unspecified open wound, right lower leg, initial encounter Code(s): S81.801A - Unspecified open wound, right lower leg, initial encounter Status: Acute Assessment and Plan: Continue wound care's recommendations- Daily apply silver gel to open wound on the right lower leg, cover with ABD pad and roll gauze. Cleanse legs and feet daily with soap and water. apply lotion to closed dry scale areas. (3) Chronic venous stasis: Code(s): I87.8 - Other specified disorders of veins Status: Acute Assessment and Plan: See above. (4) Hypertension: Code(s): I10 - Essential (primary) hypertension Status: Inactive Assessment and Plan: BP this morning 140/75, stable. Continue monitoring. (5) Hyperparathyroidism: Code(s): E21.3 - Hyperparathyroidism, unspecified Status: Inactive Assessment and Plan: Continue Vitamin D upon discharge. Follow up with PCP. (6) Weakness: Code(s): R53.1 - Weakness Status: Acute Assessment and Plan: Most likely from deconditioning vs acute infection. Could also be from leg pain and symptoms. Continue PT/OT and will need SNF placement (7) Leg pain: Code(s): M79.606 - Pain in leg, unspecified Status: Acute Assessment and Plan: Having significant leg pain when someone is touching her but also when no one is in her room. Unsure exactly how much pain she is in. No DVT noted to lower extremities. Continue Tylenol and tramadol p.r.n.. (8) Wheezing: Code(s): R06.2 - Wheezing Status: Acute Assessment and Plan: Patient had wheezing on examination. Prior history of smoking 10 years ago. Chest x-ray shows no acute abnormality. Continue albuterol inhaler p.r.n. for wheezing or shortness of breath. Patient is otherwise asymptomatic. DS: Summary Hospital Course Reason for hospitalization: This is a 65 year old woman with history of HTN, hyperparathyroidism, who presented to the ER with complaints of increased weeping to her right lower extremity for the last 2 weeks. The patient's daughter states she sleeps in a chair with her legs on the floor. Over the last 2 weeks she has had increased weeping of her right leg as well as increased pain. She saw her PCP but stated nothing was done and so they came to the ER. Initial vitals show she is afebrile, non tachycardic, normal respiratory rate and oxygenation on room air, blood pressure slightly elevated at 140 7/74. Initial labs show slight elevation of WBCs at 11,100, with a left shift to 73%. Normal coag panel. Normal CMP other than slightly elevated CO2 at 33, glucose 114, Calcium 10.7. Normal LFTs. BNP slightly elevated at 155. CT Head showed no acute intracranial abnormality. Chronic bilateral lacunar infarctions. Chr
[2020-12-01 19:41] VITALS: BP 153/71; PULSE 78; RESP 16; TEMP 36.4; O2SAT 97
--- NOTE | 2020-12-08 14:06 | PC.NURSE ---
Blood cx are negative.
== END 2020-12-01 19:41 | DRG 603 ==
LOC: ANHED 11-28 01:38 → ANH2MED 11-28 01:58
PROVIDERS: Physician Assistant; Admitting Provider Internal Medicine; Emergency Provider Emergency Medicine; PCP Family Medicine; Visit Provider Internal Medicine
DX: L03.115 Cellulitis of right lower limb (principal); S81.801A Unspecified open wound, right lower leg, initial encounter; I87.8 Other specified disorders of veins; I10 Essential (primary) hypertension; M79.661 Pain in right lower leg; E21.3 Hyperparathyroidism, unspecified; M81.0 Age-related osteoporosis without current pathological fracture; R53.1 Weakness; R06.2 Wheezing; Z79.82 Long term (current) use of aspirin; Z79.899 Other long term (current) drug therapy
CPT/HCPCS: 36415; 70450; 71046; 80048; 80053; 81001; 83735; 83880; 85025; 85610; 85730; 87040; 87070; 87077; 87186; 87205; 93971; 94640; 96365; 96372; 96375; 96376; 97110; 97116; 97161; 97165; 97530; 97535; 99285; A9270; G0378; J1170; J1650; J2543; J7512

== ENCOUNTER 2021-04-29 10:58 | Outpatient (CLI) | payer MEDICARE, SELFPAY ==
--- NOTE | ~2021-04-29 | DEXA_ITS ---
Bone Density Report Name: Rosina Soria Age: 65 Sex: Female Ethnicity: Black Date of : 1955 Indication: postmenopausal; Referring Provider: Loretta, Devin Trejo Study: Bone densitometry was performed. Exam Date: April 29, 2021 Accession number: [id number] Bone Density: Region BMD T-score Z-score Classification AP Spine (L1, L2) 1.208 2.1 3.1 Normal Femoral Neck (Left) 0.743 -1.0 -0.2 Normal Total Hip (Left) 1.057 0.9 1.2 Normal World Health Organization criteria for BMD impression classify patients as: Normal (T-score at or above -1.0), Osteopenia (T-score between -1.0 and -2.5), or Osteoporosis (T-score at or below -2.5). 10-year Fracture Risk: FRAX not reported because: All T-scores for Spine Total, Hip Total, Femoral Neck at or above -1.0 Clinical Information Provided by Patient: Has used the following medications: Vitamin D Patient maximum height was 65 Menopause Age: 40 No regular weight bearing exercise Drinks caffeinated beverages Onset of menses at age 12 Number of children 1 Impression: The patient has normal bone mass. Discussion: BONE DENSITY IS ABOVE THE MINIMUM DESIRABLE LEVEL AT ALL SKELETAL SITES TESTED. This patient?s bone mineral density is above the minimum desirable level (T-score -1.0 or better) at all sites measured. The patient should follow a healthful lifestyle (good nutrition with adequate calcium and vitamin D, and appropriate weight-bearing exercise). Follow-Up: Consider repeating this study in 5 years or sooner if there is some new clinical indication. Reported by: MICHAEL on 04/29/2021 11:37:00 AM. Reviewed, dictated and finalized at location [facility]
[2021-04-29 16:52] LABS: Alanine Aminotransferase 19 U/L (4-35); Albumin Level 4.3 g/dL (3.5-5.1); Alkaline Phosphatase 125 U/L (38-126); Anion Gap 9 mmol/L (8-16); Aspartate Amino Transferase 72 U/L (14-36); Bilirubin,Total 0.3 mg/dL (0.2-1.3); Blood Urea Nitrogen 20 mg/dL (7-17); Calcium 10.7 mg/dL (8.4-10.2); Carbon Dioxide 29 mmol/L (22-30); Chloride 107 mmol/L (98-107); Estimated Glomerular Filt Rate > 60; Glucose 95 mg/dL (65-110); Potassium 3.7 mmol/L (3.4-5.0); Sodium 145 mmol/L (137-145)
[2021-04-29 17:03] LABS: Parathyroid Intact 182.9 pg/mL (7.5-53.5)
[2021-04-29 17:07] LABS: Vitamin D 25 Hydroxy 33.7 ng/mL
== END 2021-04-29 10:59 | disposition home or self-care (01) ==
PROVIDERS: Visit Provider Internal Medicine Endocrinology, Diabetes & Metabolism
DX: E21.0 Primary hyperparathyroidism (principal); E55.9 Vitamin D deficiency, unspecified; Z78.0 Asymptomatic menopausal state
CPT/HCPCS: 36415; 77080; 80053; 82306; 82330; 83970

== ENCOUNTER 2021-06-12 11:42 | Emergency (ER) | payer MEDICARE, SELFPAY ==
[2021-06-12] VITALS (18 sets, daily range): BP systolic 98–178; BP diastolic 69–109; PULSE 58–67; RESP 12–19; TEMP 35.9; O2SAT 73–100
--- NOTE | 2021-06-12 12:59 | ED.GENADULT ---
HPI - General Adult General Chief complaint: Unspecified Stated complaint: needs nh placement from [facility] Time Seen by Provider: 06/12/21 12:39 Source: patient and family Limitations: no limitations History of Present Illness HPI narrative: Patient is 65 years old brought to the emergency room by her daughter for wrist care. The daughter is telling me that she have to go to [place] for her father and her mom cannot be by herself. Scheduled to go to [place] today and to stay there for the next 5 days. Patient was not able to see her family physician today and need to be seen by a physician. Prior to going to [place].. Patient denying any symptoms. Related Data Home Medications Medication Instructions Recorded Confirmed aspirin 81 mg PO DAILY 06/25/20 11/28/20 calcium phos,dibas-vitamin D3 See Rx Instructions .ROUTE .COMPLEX 06/25/20 11/28/20 chlorthalidone 25 mg PO DAILY 06/25/20 11/28/20 losartan 50 mg PO DAILY 06/25/20 11/28/20 neomycin-polymyxin B-dexameth 1 drp RIGHT EYE Q4H 12/01/20 12/01/20 Allergies Allergy/AdvReac Type Severity Reaction Status Date / Time No Known Allergies Allergy Verified 11/27/20 21:45 Review of Systems Review of Systems: CONSTITUTIONAL: Denies fever, chills, or sweats. EYES: Denies visual changes, redness, or discharge. ENT: Denies rhinorrhea, congestion, sore throat, or otalgia. CARDIOVASCULAR: Denies chest pain, palpitations, or edema. RESPIRATORY: Denies cough or dyspnea. GASTROINTESTINAL: Denies abdominal pain, nausea, vomiting, or diarrhea. GENITOURINARY: Denies dysuria or hematuria. SKIN: Denies rash or itching. MUSCULOSKELETAL: Denies back pain, joint pain, or myalgia. NEUROLOGIC: Denies headache, numbness, or weakness. PSYCHIATRIC: Denies anxiety or depression. [facility] Past Medical History Medical History Anemia GI bleeding Hyperparathyroidism Hypertension Osteoporosis Urinary tract infection Surgical History Surgical History History of tonsillectomy Social History Social History Smoking status: Never smoker Tobacco type: cigarettes Alcohol intake: never Substance use: never Additional living arrangements comments: Lives with Daughter Kirstie Gender identity (if verbalized by the patient): Female Spiritual care concerns: No Exam Narrative: General appearance: Well-developed, well-nourished Skin: Normal color Head: Normocephalic, nontraumatic Eyes: Clear conjunctiva ENT: Oropharynx normal, ears normal, nose normal Neck: Supple, nontender Chest and respiratory: Airway patent, no respiratory distress, no accessory muscle use Heart: Regular rate/rhythm Abdomen: Soft, nontender, no organomegaly, quiet bowel sounds Vascular: Normal peripheral pulses, normal capillary refill. Musculoskeletal: Normal range of motion, nontender back Neurologic: Alert and oriented ?3, [employer] is normal as tested, no gross motor deficit Course Course Emergency Course: Stable Vital Signs Vital signs: Vital Signs Temperature 35.9 C L 06/12/21 11:57 Pulse Rate 61 06/12/21 11:57 Respiratory Rate 18 06/12/21 11:57 Blood Pressure 152/77 H 06/12/21 11:57 Pulse Oximetry 100 06/12/21 11:57 Temperature 35.9 C L 06/12/21 11:57 Pulse Rate 58 L 06/12/21 13:46 Respiratory Rate 12 06/12/21 13:46 Blood Pressure 140/77 06/12/21 13:46 Pulse Oximetry 96 06/12/21 13:45 Medical Decision Making MDM Narrative Medical decision making narrative: Patient present for a respite care, no complaints Vital Signs Meaghan
--- NOTE | 2021-06-12 14:26 | PC.NURSE ---
transport coordinator at bedside
--- NOTE | 2021-06-12 14:31 | PCCCNOTE ---
Spoke with Dr. Davalos about respite placement for patient, Patient needed to be evaluated by a doctor today as PCP unable. Per pt's dtr yojana set up with [facility] in [facility]. Spoke with dtr Kirstie who confirms that she is going to [place] to bury her Father and she has already set it up with [facility] for care during the time she is aware. She needs papers faxed to [phone]. Called to Ko at [facility] and he confirms this and able to accept today. Confirmed fax # provided by dtr, he states that he doesn't need anything faxed but will accept information if dtr has to send. He does not need anything additional. Faxed as requested by daughter and provided paperwork back to dtr. Dr. Davalos notified that intensive care ambulance paramedic has contacted [facility] and have faxed what is needed.
== END 2021-06-12 14:39 ==
PROVIDERS: Emergency Provider Emergency Medicine; PCP Family Medicine
DX: Z04.89 Encounter for examination and observation for other specified reasons (principal); E21.3 Hyperparathyroidism, unspecified; I10 Essential (primary) hypertension; M81.0 Age-related osteoporosis without current pathological fracture; Z86.2 Personal history of diseases of the blood and blood-forming organs and certain disorders involving the immune mechanism; Z87.19 Personal history of other diseases of the digestive system; Z87.440 Personal history of urinary (tract) infections; Z90.89 Acquired absence of other organs
CPT/HCPCS: 99281

== ENCOUNTER 2021-08-27 12:26 | Inpatient (IN) | payer MEDICARE, SELFPAY ==
[2021-08-27] VITALS (8 sets, daily range): BP systolic 137–180; BP diastolic 61–104; PULSE 92–109; RESP 14–20; TEMP 36.4; O2SAT 93–99; BMI 42.9
--- NOTE | ~2021-08-27 | US_ITS ---
EXAMINATION: US venous doppler [facility] EXAM DATE: 09/02/2021 17:16 INDICATION: Left leg edema. TECHNIQUE: Multiple grayscale, color flow and Doppler images of the left lower extremity deep venous system were obtained and reviewed. No prior left leg exam for comparison. FINDINGS: The left common femoral, femoral and profunda veins demonstrate normal color flow, respirat ory variation, augmentation and compressibility. Compressibility, color flow confirmed within the le ft popliteal, posterior tibial, peroneal, and greater saphenous veins. IMPRESSION: 1. No left lower extremity deep venous thrombosis. Reviewed, dictated and finalized at location G. [facility]IDENT COMPLIANCE
--- NOTE | ~2021-08-27 | CT_ITS ---
. EXAMINATION: CT LE RT w con DATE: 08/27/2021 16:02 INDICATION: Right lower leg wound and swelling. TECHNIQUE: Computed tomography (CT) of the right lower limb was performed with 100 mL Omnipaque 350 i ntravenous contrast. Automated exposure control and iterative reconstruction technique were employed. The dose-length product was 326.58 mGy-cm. COMPARISON: None FINDINGS: Bone alignment is normal. No fracture. There is moderate right knee osteoarthritis. There i s extensive subcutaneous edema in the right lower leg with skin thickening. No deep vein thrombosis i dentified. There is mild stenosis of right popliteal artery. IMPRESSION: 1. No abscess. No evidence of osteomyelitis. Reviewed, dictated and finalized at location A. CTOR WRITING
--- NOTE | ~2021-08-27 | US_ITS ---
EXAMINATION: US venous doppler LE RT EXAM DATE: 08/27/2021 14:40 INDICATION: Right leg swelling. TECHNIQUE: Multiple grayscale, color flow and Doppler images of the right lower extremity deep venous system were obtained and reviewed. There is no prior study for comparison. FINDINGS: The right common femoral, femoral and profunda veins demonstrate normal color flow, respira tory variation, augmentation and compressibility. Compressibility, color flow confirmed within the r ight popliteal, posterior tibial, peroneal, and greater saphenous veins. IMPRESSION: No right lower extremity deep venous thrombosis. Reviewed, dictated and finalized at location A. RVISOR MAINTENANCE
[2021-08-27] MEDS: HYDROmorphone HCL INJ (*CRX) 1 MG/ML SYR 0.5 MG IV PUSH (14:23)
[2021-08-27 14:29] LABS: Basophils Absolute Auto 0.1 K/mm3 (0.0-0.1); Basophils Percent Auto 0.5 % (0.2-1.2); Eosinophils Absolute Auto 0.3 K/mm3 (0-0.3); Eosinophils Percent Auto 2.8 % (0-4.4); Hematocrit 38.1 % (37.0-47.0); Hemoglobin 13.2 g/dL (12.0-15.0); Immature Granulocyte Absolute 0.05 K/mm3 (0.00-0.031); Immature Granulocyte Percent A 0.5 % (0-0.5); Lymphocytes Percent Auto 20.1 % (18.3-44.2); Mean Corpuscular HGB Conc 34.6 g/dl (32-36); Mean Corpuscular Hemoglobin 27.2 pg (26-34); Mean Corpuscular Volume 78.6 fl (80-100); Mean Platelet Volume 11.2 fl (7.4-10.4); Monocytes Absolute Auto 0.9 K/mm3 (0.1-0.6); Monocytes Percent Auto 8.1 % (2.6-8.5); Neutrophils Absolute Auto 7.5 K/mm3 (1.3-6.7); Platelet Count Result 313 k/mm3 (150-375); Red Blood Count 4.85 M/mm3 (4.2-5.4); Red Cell Distribution Width 13.3 % (11.5-14.5)
--- NOTE | 2021-08-27 14:29 | PC.NURSE ---
Ultrasound at bedside.
--- NOTE | 2021-08-27 14:52 | ED.GENADULT ---
HPI - General Adult General Chief complaint: Extremity Injury, Lower Stated complaint: R leg pain Time Seen by Provider: 08/27/21 13:44 Source: patient Mode of arrival: ambulatory Limitations: no limitations History of Present Illness HPI narrative: Patient is a 65-year-old female with chief complaint of increased swelling, redness and wounds to the right lower leg that have been progressing for approximately 1 month. Patient reports that she saw her primary care in 1 to 2 weeks ago and was referred to a wound care, but that she was being told that she needed to go to another specialist. Patient reports that the extremity has become more painful today so she presented to the emergency department. Patient reports she has a history of psoriasis. Patient reports her pain is to the anterior lateral area of the leg. Patient denies fever, chills, nausea, vomiting, weakness or fatigue. Related Data Home Medications Medication Instructions Recorded Confirmed aspirin 81 mg PO DAILY 06/25/20 11/28/20 calcium phos,dibas-vitamin D3 See Rx Instructions .ROUTE .COMPLEX 06/25/20 11/28/20 chlorthalidone 25 mg PO DAILY 06/25/20 11/28/20 losartan 50 mg PO DAILY 06/25/20 11/28/20 neomycin-polymyxin B-dexameth 1 drp RIGHT EYE Q4H 12/01/20 12/01/20 Allergies Allergy/AdvReac Type Severity Reaction Status Date / Time No Known Allergies Allergy Verified 11/27/20 21:45 Review of Systems Review of Systems: CONSTITUTIONAL: Denies fever, chills, or sweats. EYES: Denies visual changes, redness, or discharge. ENT: Denies rhinorrhea, congestion, sore throat, or otalgia. CARDIOVASCULAR: Denies chest pain, palpitations, or edema. RESPIRATORY: Denies cough or dyspnea. GASTROINTESTINAL: Denies abdominal pain, nausea, vomiting, or diarrhea. GENITOURINARY: Denies dysuria or hematuria. SKIN: Reports right leg wound MUSCULOSKELETAL: Denies back pain, joint pain, or myalgia. NEUROLOGIC: Denies headache, numbness, dizziness, or weakness. PSYCHIATRIC: Denies anxiety or depression. [facility] Past Medical History Medical History (Updated 08/27/21 @ 18:39 by Renee Ndiaye PA-C) Anemia GI bleeding Hyperparathyroidism Hypertension Osteoporosis Urinary tract infection Surgical History Surgical History (Updated 08/27/21 @ 18:17 by Oriana Hastings NP) History of section, classical History of tonsillectomy Family History Family History (Updated 08/27/21 @ 18:20 by Oriana Hastings NP) Father Emphysema lung Mother Cancer Social History Social History (Updated 08/27/21 @ 18:19 by Oriana Hastings NP) Social History: lives with only child daughter .singlw disabled Smoking status: Never smoker Alcohol intake: never Substance use: never Additional living arrangements comments: Lives with Daughter Kirstie Gender identity (if verbalized by the patient): Female Spiritual care concerns: No Exam Narrative: GENERAL: Well-appearing, well-nourished, and in no acute distress. HEAD: Normocephalic, atraumatic. EYES: PERRLA and EOMI. CHEST: Clear to auscultation. No respiratory distress. No wheezes rales or rhonchi HEART: Regular rate and rhythm. No murmur heard. Normal peripheral pulses. EXTREMITIES: Edematous legs with areas of thick dry patches of skin. Anterior and lateral area tight with skin sloughing, erythema and weeping light green serous fluid with surrounding erythema. DP pulse palpated. SKIN: See extremities. Warm, dry, no rash. NEURO: No focal deficits. Alert and oriented x3. PSYCH: Normal mood and affect. Course Vital Signs Vital signs: Vital Signs Temperature 97.6 F 08/27/21 12:41 Pulse Rate 92 08/27/21 12:41 Respiratory Rate 20 08/27/21 12:41 Blood Pressure 153/81 H 08/27/21 12:41 Pulse Oximetry 97 08/27/21 12:41 Temperature 97.6 F 08/27/21 12:41 Pulse Rate 106 H 08/27/21 17:57 Respiratory Rate 20 08/27/21 17:57 Blood Pressure 180/61 H 08/27/21 18:22 Pulse Oxime
--- NOTE | 2021-08-27 15:30 | PC.NURSE ---
Pt's daughter at bedside. Pt awake and yelling again. Pt asking for more medication. PA made aware.
[2021-08-27 15:34] LABS: Lactic Acid Reflex 0.6 mmol/L (0.7-2.1)
[2021-08-27 15:35] LABS: Alanine Aminotransferase 26 U/L (4-35); Albumin Level 4.1 g/dL (3.5-5.1); Alkaline Phosphatase 127 U/L (38-126); Anion Gap 7 mmol/L (8-16); Aspartate Amino Transferase 36 U/L (14-36); Bilirubin,Total 0.7 mg/dL (0.2-1.3); Blood Urea Nitrogen 19 mg/dL (7-17); Calcium 10.7 mg/dL (8.4-10.2); Carbon Dioxide 28 mmol/L (22-30); Chloride 106 mmol/L (98-107); Estimated CRCL calculation 89 ml/min; Estimated Glomerular Filt Rate > 60; Glucose 101 mg/dL (65-110); Potassium 3.7 mmol/L (3.4-5.0); Sodium 141 mmol/L (137-145)
[2021-08-27] MEDS: LORazepam INJ (*CRX) 2 MG/ML VIAL 1 MG IV PUSH (15:43)
--- NOTE | 2021-08-27 15:48 | PC.NURSE ---
Pt to CT.
--- NOTE | 2021-08-27 17:58 | PC.NURSE ---
Pt has auditory wheezing. Pt denies feeling sob. Daughter states this is normal for pt. Pt is supposed to use nebulizers at home but does not. SpO2 96% on room air. REI made aware.
--- NOTE | 2021-08-27 18:16 | PM.IMHP ---
H&P: HPI History of Present Illness Date/Time: 08/27/21 18:16 this is a 65-year-old female patient who is complaining of increased swelling, redness and wounds to her right lower leg. She has had this for over a month. It was reported that the patient is our primary care doctor 1-2 weeks ago and was referred to wound care. Patient is crying and complaining of severe pain to her right hip and right lower extremity. She denied any fever or chills. Her white count is 11.0. Lower extremity CT was read as no abscess no evidence of osteomyelitis. Venous Doppler was read as no right lower extremity deep vein thrombosis. The patient was started on Ancef as per protocol. She was given Dilaudid, Ativan and [place]. Patient has and open area to right lower extremity with serous drainage. No odor is noted from the wound. Wound and blood cultures were ordered. Her calcium is 10.7 and has been elevated. According to the record she has a history of hyperparathyroidism. Her COVID test is negative. The patient is being admitted to observation status on the date of service of 08/27/2021. Chief Complaint: Wound to right foot Review of Systems Review of Systems: All systems reviewed & are unremarkable except as noted in HPI and below Constitutional: Constitutional: Reports as per HPI and Reports no additional constitutional complaints Eyes: Eyes: Reports as per HPI and Reports no additional eye complaints ENT: Reports system reviewed and no additional complaints, except as documented and Reports Normal hearing present Cardiovascular: Cardiovascular: Reports no additional cardiovascular complaints Respiratory: Respiratory: Reports no additional respiratory complaints and Reports no additional respiratory complaints Gastrointestinal: Gastrointestinal: Reports as per HPI and Reports no additional gastrointestinal complaints Musculoskeletal: Musculoskeletal: Reports no additional musculoskeletal complaints Integumentary/Breasts: Skin/Breast: Reports system reviewed and no additional complaints, except as docu and Reports as per HPI Neurologic: Reports system reviewed and no additional complaints, except as documented, Reports as per HPI and Reports Normal hearing present Psychiatric: Psychiatric: Reports no additional psychiatric complaints and Reports as per HPI Endocrine: Endocrine: Reports no additional endocrine complaints Hematologic/Lymphatic: Hematologic/Lymphatic: Reports no additional hematologic/lymphatic complaints Allergic/Immunologic: Allergic/Immunologic: Reports no additional allergic/immunologic complaints [facility] Past Medical History Medical History (Updated 08/27/21 @ 20:01 by Oriana A. Benhoff, INSPECTOR PENETRANT) Anemia GI bleeding Hyperparathyroidism Hypertension Osteoporosis Urinary tract infection Surgical History Surgical History History of section, classical History of tonsillectomy Family History Family History Father Emphysema lung Mother Cancer Social History Social History (Updated 08/27/21 @ 19:51 by Oriana Hastings NP) Social History: She lives with daughter who is her only child. She is single and is disabled. The patient stated that she has never smoked or use tobacco products. She denies any alcohol marijuana illicit drugs. Code status full code Smoking status: Never smoker Alcohol intake: never Substance use: never Additional living arrangements comments: Lives with Daughter Kirstie Gender identity (if verbalized by the patient): Female Spiritual care concerns: No Meds Home Medications and Allergies Home Medications Medication Instructions Recorded Confirmed Type aspirin 81 mg PO DAILY 06/25/20 11/28/20 History calcium phos,dibas-vitamin D3 See Rx Instructions .ROUTE .COMPLEX 06/25/20 11/28/20 History chlorthalidone 25 mg PO DAILY 06/25/20 11/28/20 Hi
[2021-08-27] MEDS: HYDROcodone/acetaminophen (*CRX) 5-325 MG TABLET 1 TAB PO (18:21)
[2021-08-27 18:29] LABS: SARS-CoV-2 RNA PCR Negative
--- NOTE | 2021-08-27 19:45 | PC.NURSE ---
Report given to GELY Puente.
[2021-08-27] MEDS: HYDROmorphone HCL INJ (*CRX) 1 MG/ML SYR IV PUSH (20:11)
--- NOTE | 2021-08-27 22:08 | PC.NURSE ---
This patient, Rosina Soria, was admitted to 3 Medical Room 341-01. Patient/family oriented to hospital policies and general routines including ID bracelet, bed and alarms, visiting hours, pain management, procedures, bathroom and other care routines, personal items, smoking policy, room service/diet, and visiting hours. Information on how to activate the Rapid Response Team has been discussed. Patient/Family are encouraged to report perceived risks to care and to ask questions if they do not understand what they are told or what they should do. Called daughter to obtain information Pt is drowsy and having difficulty answering questions.
[2021-08-28] VITALS (8 sets, daily range): BP systolic 111–137; BP diastolic 66–71; PULSE 86–104; RESP 16–21; TEMP 36.1–36.6; O2SAT 92–97
[2021-08-28] MEDS: traMADol HCL (*CRX) 50 MG TABLET PO ×2 (05:52→15:42)
[2021-08-28 05:55] LABS: Basophils Percent Auto 0.4 % (0.2-1.2); Eosinophils Absolute Auto 0.2 K/mm3 (0-0.3); Eosinophils Percent Auto 1.5 % (0-4.4); Hematocrit 37.3 % (37.0-47.0); Hemoglobin 12.6 g/dL (12.0-15.0); Immature Granulocyte Absolute 0.03 K/mm3 (0.00-0.031); Immature Granulocyte Percent A 0.3 % (0-0.5); Lymphocytes Absolute Auto 1.52 K/mm3 (0.9-3.2); Lymphocytes Percent Auto 14.5 % (18.3-44.2); Mean Corpuscular HGB Conc 33.8 g/dl (32-36); Mean Corpuscular Hemoglobin 27.3 pg (26-34); Mean Corpuscular Volume 80.7 fl (80-100); Mean Platelet Volume 11.4 fl (7.4-10.4); Monocytes Absolute Auto 0.9 K/mm3 (0.1-0.6); Neutrophils Absolute Auto 7.8 K/mm3 (1.3-6.7); Neutrophils Percent Auto 74.3 % (45.5-73.1); Platelet Count Result 293 k/mm3 (150-375); Red Blood Count 4.62 M/mm3 (4.2-5.4); Red Cell Distribution Width 13.9 % (11.5-14.5); White Blood Count 10.5 K/mm3 (4.5-10.0)
[2021-08-28 06:04] LABS: Lactic Acid Reflex 0.6 mmol/L (0.7-2.1)
[2021-08-28 06:07] LABS: Alanine Aminotransferase 24 U/L (4-35); Alkaline Phosphatase 119 U/L (38-126); Anion Gap 6 mmol/L (8-16); Aspartate Amino Transferase 29 U/L (14-36); Bilirubin,Total 0.7 mg/dL (0.2-1.3); Blood Urea Nitrogen 19 mg/dL (7-17); Calcium 10.7 mg/dL (8.4-10.2); Carbon Dioxide 30 mmol/L (22-30); Chloride 105 mmol/L (98-107); Estimated CRCL calculation 78 ml/min; Estimated Glomerular Filt Rate > 60; Glucose 116 mg/dL (65-110); Lactate Dehydrogenase 412 U/L (313-618); Magnesium 1.8 mg/dL (1.6-2.3); Potassium 3.2 mmol/L (3.4-5.0); Sodium 141 mmol/L (137-145)
[2021-08-28] MEDS: ENOXAPARIN 40 MG/0.4 ML SYRINGE SUB-Q (07:59)
[2021-08-28] MEDS: IPRATROPIUM BR 0.02% INH SOLN 0.5 MG/2.5 ML VIAL INHALATION ×3 (08:38→21:48)
[2021-08-28] MEDS: ALBUTEROL SULFATE NEB 2.5 MG/0.5 ML INH INHALATION ×3 (08:38→21:48)
[2021-08-28] MEDS: ASPIRIN 81 MG CHEWABLE TABLET PO (10:02)
[2021-08-28] MEDS: POTASSIUM CHLORIDE 20 MEQ TABLET 40 MEQ PO (10:02)
[2021-08-28] MEDS: CHLORTHALIDONE 25 MG TABLET PO (10:02)
[2021-08-28] MEDS: LOSARTAN POTASSIUM 50 MG TABLET PO (10:02)
[2021-08-28] MEDS: ACETAMINOPHEN 325 MG TABLET 650 MG PO (10:02)
[2021-08-28] MEDS: SILVERGEL (ELTA) 45 ML 1 APPLIC TOPICAL (10:03)
--- NOTE | 2021-08-28 11:29 | PM.IMPN ---
Progress Note: A&P Assessment and Plan (1) Cellulitis of right lower extremity: Code(s): L03.115 - Cellulitis of right lower limb Status: Acute Assessment and Plan: Continue with Ancef. Wound care consult appreciated Continue with tramadol that the patient takes at home. Add scheduled Tylenol dosing, p.r.n. [place] 5 mg and 10 mg. Added lidocaine patches scheduled. Blood culture show no growth urine cultures are pending Wound culture shows: Gram +bacilli, Gram negative bacilli, Gram positive cocci: No final results and no sensitivities available yet. Added PT and OT Nursing communication instructions to elevate lower extremities (2) Wheezing: Code(s): R06.2 - Wheezing Status: Acute Assessment and Plan: Sounds like bronchial wheezes. Continue with her albuterol p.r.n. if she uses it at home. Ordered DuoNeb treatments scheduled q.6 hours - improved today. (3) Hypertension: Code(s): I10 - Essential (primary) hypertension Status: Acute Assessment and Plan: Continue with losartan. P.r.n. hydralazine Bps stable 122/70-138/86 (4) Hyperparathyroidism: Code(s): E21.3 - Hyperparathyroidism, unspecified Status: Chronic Assessment and Plan: Patient's calcium level has been elevated Ionized calcium levels pending. Family will need to be informed that patient has significant hyperparathyroidism and really needs to follow-up with a endocrine surgeon for possible parathyroid gland removal. She has calcium levels above 10 persistently. And in April her PTH level was 182, significantly elevated. This can lead to high blood pressure (which she has), osteoporosis, and/or kidney stones. Subjective Date/time seen: 08/28/21 11:29 Rosina was able to answer most of my questions, but some answers did not make full sense. She was pleasant and easy to converse with. She did have some delayed to her answers and a noted slowness about her responses. She did say that her daughter had been taking her to a wound clinic in [place] every week. When I asked her what the wound clinic was doing for treatment to her right leg, she stated nothing . Today, Her right leg wound is extremely malodorous, open to air, and continues to have persistent drainage that is purulent cream yellow greenish in color. Her pain is much better controlled today. She is able to tolerate my examination and moving of both legs. Nursing staff did say that she has dementia according to her daughter. She is pleasant and followed all my commands during her exam. We will have to monitor wound with current topical therapy and IV anbitiobiotics. If no improvement, may need to consult Gen. Surgery for debridement -there is a significant odor and purulence yellow green drainage from wound of right leg today. Blood cultures and wound culture is pending. Ordered a UA and a urine culture today. Patient will be continued on Ancef. Patient (and family) will need to be continually educated about the importance of elevating her legs, having daily compression, and avoiding salt or high salt foods. She needs to follow-up with vascular surgeon after discharge, to treat any undiagnosed venous insufficiency and/or arterial insufficiency. Review of Systems Review of Systems: All systems reviewed & are unremarkable except as noted in HPI and below Constitutional: Constitutional: Reports as per HPI, Reports no additional constitutional complaints and Reports weakness Eyes: Eyes: Reports as per HPI and Reports no additional eye complaints ENT: Reports system reviewed and no additional complaints, except as documented and Reports Normal hearing present Cardiovascular: Cardiovascular: Reports as per HPI and Reports no additional cardiovascular complaints Respiratory: Respiratory: Reports as per HPI, Reports no additional respiratory complaints, Reports no additional respiratory complaints and Reports wheezing
[2021-08-28 15:59] LABS: Add Urine Microscopic? YES; Appearance Urine Cloudy (Clear); Bilirubin Urine Negative (Negative); Blood Urine Negative (Negative); Color Urine Yellow (Yellow); Glucose Urine UA Negative (Negative); Ketones Urine Negative (Negative); Leukocyte Esterase Ur Negative LEU/UL (NEGATIVE); Mucus Urine Rare /lpf; Nitrate Urine Negative (Negative); Protein Urine Negative (Negative); RBC Urine 0-2 /hpf (0-2); Specific Grav Ur 1.032 (1.001-1.035); Squamous Epithelial Cell Urine Many /hpf (Few); Urobilinogen Urine Negative mg/dL (<2.0); WBC Urine 0-3 /hpf (0-3)
[2021-08-28] MEDS: HYDROcodone/acetaminophen (*CRX) 5-325 MG TABLET 1 TAB PO (17:58)
[2021-08-28] MEDS: MAGNESIUM SULF 2 GM/WATER 50ML 2 GM/50 ML BAG IVPB (21:23)
[2021-08-29] VITALS (10 sets, daily range): BP systolic 143–147; BP diastolic 56–64; PULSE 80–88; RESP 14–18; TEMP 36.3–37.3; O2SAT 92–96
[2021-08-29] MEDS: IPRATROPIUM BR 0.02% INH SOLN 0.5 MG/2.5 ML VIAL INHALATION ×4 (01:38→21:46)
[2021-08-29] MEDS: ALBUTEROL SULFATE NEB 2.5 MG/0.5 ML INH INHALATION ×4 (01:38→21:46)
[2021-08-29 06:19] LABS: Basophils Percent Auto 0.2 % (0.2-1.2); Eosinophils Absolute Auto 0.2 K/mm3 (0-0.3); Eosinophils Percent Auto 1.9 % (0-4.4); Hematocrit 33.9 % (37.0-47.0); Hemoglobin 11.6 g/dL (12.0-15.0); Immature Granulocyte Absolute 0.04 K/mm3 (0.00-0.031); Immature Granulocyte Percent A 0.4 % (0-0.5); Lymphocytes Absolute Auto 1.93 K/mm3 (0.9-3.2); Mean Corpuscular HGB Conc 34.2 g/dl (32-36); Mean Corpuscular Hemoglobin 27.5 pg (26-34); Mean Corpuscular Volume 80.3 fl (80-100); Mean Platelet Volume 11.5 fl (7.4-10.4); Monocytes Absolute Auto 0.9 K/mm3 (0.1-0.6); Monocytes Percent Auto 8.3 % (2.6-8.5); Neutrophils Absolute Auto 7.7 K/mm3 (1.3-6.7); Neutrophils Percent Auto 71.2 % (45.5-73.1); Platelet Count Result 267 k/mm3 (150-375); Red Blood Count 4.22 M/mm3 (4.2-5.4); Red Cell Distribution Width 13.9 % (11.5-14.5); White Blood Count 10.7 K/mm3 (4.5-10.0)
[2021-08-29 06:31] LABS: Alanine Aminotransferase 21 U/L (4-35); Albumin Level 3.6 g/dL (3.5-5.1); Alkaline Phosphatase 100 U/L (38-126); Anion Gap 3 mmol/L (8-16); Aspartate Amino Transferase 27 U/L (14-36); Bilirubin,Total 0.7 mg/dL (0.2-1.3); Blood Urea Nitrogen 17 mg/dL (7-17); Calcium 10.1 mg/dL (8.4-10.2); Carbon Dioxide 31 mmol/L (22-30); Chloride 105 mmol/L (98-107); Estimated CRCL calculation 78 ml/min; Estimated Glomerular Filt Rate > 60; Glucose 162 mg/dL (65-110); Potassium 3.1 mmol/L (3.4-5.0); Sodium 139 mmol/L (137-145)
[2021-08-29] MEDS: ASPIRIN 81 MG CHEWABLE TABLET PO (08:47)
[2021-08-29] MEDS: POTASSIUM CHLORIDE 20 MEQ TABLET 40 MEQ PO (08:47)
[2021-08-29] MEDS: ENOXAPARIN 40 MG/0.4 ML SYRINGE SUB-Q (08:47)
[2021-08-29] MEDS: LOSARTAN POTASSIUM 50 MG TABLET PO (08:47)
[2021-08-29] MEDS: CHLORTHALIDONE 25 MG TABLET PO (08:48)
[2021-08-29] MEDS: LIDOCAINE 5% PATCH 3 PATCH TRANSDERM (08:48)
[2021-08-29] MEDS: ACETAMINOPHEN 500 MG TABLET 1000 MG PO ×2 (08:48→17:10)
[2021-08-29] MEDS: SILVERGEL (ELTA) 45 ML 1 APPLIC TOPICAL (08:57)
--- NOTE | 2021-08-29 13:19 | PM.IMPN ---
Progress Note: A&P Assessment and Plan (1) Cellulitis of right lower extremity: Code(s): L03.115 - Cellulitis of right lower limb Status: Acute Assessment and Plan: Continue with Ancef Wound care consult appreciated Continue home tramadol Continue scheduled Tylenol, p.r.n. [place] 5 mg and 10 mg and lidocaine patches scheduled Blood culture show no growth urine culture pending Wound culture-->Group B Streptococcus; Gram positive bacilli, gram negative bacilli, Gram positive cocci, follow sensitivities PT and OT Nursing communication instructions to elevate lower extremities (2) Hypertension: Code(s): I10 - Essential (primary) hypertension Status: Acute Assessment and Plan: Stable Continue with losartan. P.r.n. hydralazine Monitor (3) Hyperparathyroidism: Code(s): E21.3 - Hyperparathyroidism, unspecified Status: Chronic Assessment and Plan: Patient's calcium level has been elevated Ionized calcium levels pending Family will need to be informed that patient has significant hyperparathyroidism and really needs to follow-up with a endocrine surgeon for possible parathyroid gland removal Calcium 10.7-->10.1 April her PTH level was 182, significantly elevated, can lead to high blood pressure (which she has), osteoporosis, and/or kidney stones Subjective Date/time seen: 08/29/21 13:19 Review of Systems Review of Systems: All systems reviewed & are unremarkable except as noted in HPI and below Exam Const: General: no acute distress, alert and awake Orientation/consciousness: patient oriented x3 HENMT: Head: normocephalic and atraumatic Ears: external ears normal Face and sinus: face symmetric Mouth: Yes Normal oral and palatal mucosa present Eyes: EOM: EOMs intact bilaterally Neck: Neck: full ROM and trachea midline Chest: Chest palpation & inspection: normal inspection of the chest Resp: Effort & Inspection: normal respiratory effort Auscultation: diminished lung sounds Cardio: Jugular venous distension: no JVD Rate: regular rate Rhythm: regular rhythm Heart sounds: S1 normal heart sound present and S2 normal heart sound present GI: Inspection: normal to inspection GI Palp: Yes Soft to palpation Auscultation: normal bowel sounds : General: Yes no CVA tenderness Skin: General skin exam: normal color Rashes: no rashes Neuro: General: patient oriented x3, moves all extremities and no focal motor deficits Speech: normal speech Extrem: General: edema (+4) bilateral and other (RLE with open area to anterior, lateral and psoterior; wheeping) Psych: Appearance: grossly normal Affect: normal affect Judgement: Good judgement present (Psych) Objective Data Vital Signs Vital Signs: Vital Signs - 24 hr 08/28/21 13:59 08/28/21 20:00 08/28/21 21:48 Temperature 36.1 C L Pulse Rate 92 89 86 Respiratory Rate 18 21 H Blood Pressure 111/71 Pulse Oximetry 94 97 08/28/21 21:49 08/28/21 21:57 08/28/21 22:00 Temperature 36.6 C Pulse Rate 89 88 Respiratory Rate 21 H 16 Blood Pressure 137/66 Pulse Oximetry 97 92 08/29/21 01:38 08/29/21 01:45 08/29/21 08:01 Temperature Pulse Rate 81 82 85 Respiratory Rate 18 Blood Pressure Pulse Oximetry 08/29/21 08:08 Temperature Pulse Rate 88 Respiratory Rate 18 Blood Pressure Pulse Oximetry Intake/Output Intake/Output: Intake & Output 08/26/21 08/27/21 08/28/21 08/29/21 23:59 23:59 23:59 23:59 Intake Total 100 920 530 Balance 100 920 530 Meds/Results Medications: Active Medications Generic Name Dose Route Start Last Admin Trade Name Freq PRN Reason Stop Dose Admin Acetaminophen 1,000 mg 08/28/21 18:00 08/29/21 08:48 Acetaminophen 500 Mg Tablet PO 1,000 mg Q12H HANNAH Administration Acetaminophen 650 mg 08/28/21 16:24 Acetaminophen 325 Mg Tablet PO Q6H PRN Fever Hydrocodone Bitart/Acetaminophen 1 tab 08/28/21
[2021-08-29] MEDS: HYDROcodone/acetaminophen (*CRX) 5-325 MG TABLET 1 TAB PO (15:37)
[2021-08-29] MEDS: HYDROcodone/acetaminophen (*CRX) 10-325 MG TABLET 1 TAB PO (19:16)
[2021-08-30] VITALS (9 sets, daily range): BP systolic 138–165; BP diastolic 66–78; PULSE 69–81; RESP 14–20; TEMP 36.3–37; O2SAT 94–98
[2021-08-30] MEDS: IPRATROPIUM BR 0.02% INH SOLN 0.5 MG/2.5 ML VIAL INHALATION ×4 (02:07→20:04)
[2021-08-30] MEDS: ALBUTEROL SULFATE NEB 2.5 MG/0.5 ML INH INHALATION ×4 (02:07→20:04)
[2021-08-30] MEDS: HYDROcodone/acetaminophen (*CRX) 10-325 MG TABLET 1 TAB PO ×3 (02:08→14:18)
[2021-08-30] MEDS: ACETAMINOPHEN 500 MG TABLET 1000 MG PO ×2 (05:25→16:51)
[2021-08-30 06:27] LABS: Hemoglobin 11.5 g/dL (12.0-15.0); Mean Corpuscular HGB Conc 33.8 g/dl (32-36); Mean Corpuscular Hemoglobin 27.6 pg (26-34); Mean Corpuscular Volume 81.7 fl (80-100); Mean Platelet Volume 11.3 fl (7.4-10.4); Platelet Count Result 265 k/mm3 (150-375); Red Blood Count 4.16 M/mm3 (4.2-5.4); White Blood Count 11.6 K/mm3 (4.5-10.0)
[2021-08-30 06:39] LABS: Alanine Aminotransferase 20 U/L (4-35); Albumin Level 3.5 g/dL (3.5-5.1); Alkaline Phosphatase 98 U/L (38-126); Anion Gap 3 mmol/L (8-16); Aspartate Amino Transferase 35 U/L (14-36); Bilirubin,Total 0.5 mg/dL (0.2-1.3); Blood Urea Nitrogen 18 mg/dL (7-17); Calcium 10.3 mg/dL (8.4-10.2); Carbon Dioxide 31 mmol/L (22-30); Chloride 104 mmol/L (98-107); Estimated CRCL calculation 88 ml/min; Estimated Glomerular Filt Rate > 60; Glucose 107 mg/dL (65-110); Potassium 3.6 mmol/L (3.4-5.0); Sodium 138 mmol/L (137-145)
[2021-08-30] MEDS: LIDOCAINE 5% PATCH 3 PATCH TRANSDERM (08:58)
[2021-08-30] MEDS: ENOXAPARIN 40 MG/0.4 ML SYRINGE SUB-Q (08:58)
[2021-08-30] MEDS: ASPIRIN 81 MG CHEWABLE TABLET PO (09:00)
[2021-08-30] MEDS: LOSARTAN POTASSIUM 50 MG TABLET PO (09:00)
[2021-08-30] MEDS: CHLORTHALIDONE 25 MG TABLET PO (09:00)
[2021-08-30] MEDS: SILVERGEL (ELTA) 45 ML 1 APPLIC TOPICAL (09:01)
--- NOTE | 2021-08-30 09:36 | PM.IMPN ---
Progress Note: A&P Assessment and Plan (1) Cellulitis of right lower extremity: Code(s): L03.115 - Cellulitis of right lower limb Status: Acute Assessment and Plan: Continue with Ancef Wound care consult appreciated Continue home tramadol Continue scheduled Tylenol, p.r.n. [place] 5 mg and 10 mg and lidocaine patches scheduled Blood culture show no growth urine culture pending Wound culture-->Group B Streptococcus; Gram positive bacilli, gram negative bacilli, Gram positive cocci, follow sensitivities PT and OT Nursing communication instructions to elevate lower extremities (2) Hypertension: Code(s): I10 - Essential (primary) hypertension Status: Acute Assessment and Plan: Stable Continue with losartan. P.r.n. hydralazine Monitor (3) Hyperparathyroidism: Code(s): E21.3 - Hyperparathyroidism, unspecified Status: Chronic Assessment and Plan: Patient's calcium level has been elevated Ionized calcium levels pending Family will need to be informed that patient has significant hyperparathyroidism and really needs to follow-up with a endocrine surgeon for possible parathyroid gland removal Calcium 10.7-->10.1-->10.3 today April her PTH level was 182, significantly elevated, can lead to high blood pressure (which she has), osteoporosis, and/or kidney stones Subjective Date/time seen: 08/30/21 09:36 Interval history: Pt seen and evaluated; complains of leg bryant 12/08 Review of Systems Review of Systems: All systems reviewed & are unremarkable except as noted in HPI and below Exam Const: General: no acute distress, alert and awake Orientation/consciousness: patient oriented x3 HENMT: Head: normocephalic and atraumatic Ears: external ears normal Face and sinus: face symmetric Mouth: Yes Normal oral and palatal mucosa present Eyes: EOM: EOMs intact bilaterally Neck: Neck: full ROM and trachea midline Chest: Chest palpation & inspection: normal inspection of the chest Resp: Effort & Inspection: normal respiratory effort Auscultation: diminished lung sounds Cardio: Jugular venous distension: no JVD Rate: regular rate Rhythm: regular rhythm Heart sounds: S1 normal heart sound present and S2 normal heart sound present GI: Inspection: normal to inspection Auscultation: normal bowel sounds : General: Yes no CVA tenderness Skin: General skin exam: normal color Rashes: no rashes Neuro: General: patient oriented x3, moves all extremities and no focal motor deficits Speech: normal speech Extrem: General: edema (+4) bilateral and other (RLE with open area to anterior, lateral and psoterior; wheeping) Psych: Appearance: grossly normal Affect: normal affect Judgement: Good judgement present (Psych) Objective Data Vital Signs Vital Signs: Vital Signs - 24 hr 08/29/21 14:00 08/29/21 15:20 08/29/21 15:29 Temperature 36.3 C L Pulse Rate 83 86 80 Respiratory Rate 14 18 18 Blood Pressure 143/56 H Pulse Oximetry 96 96 08/29/21 20:55 08/29/21 21:48 08/29/21 21:56 Temperature 37.3 C Pulse Rate 81 81 82 Respiratory Rate 16 18 18 Blood Pressure 147/64 H Pulse Oximetry 95 92 08/30/21 02:09 08/30/21 06:00 08/30/21 08:00 Temperature 37.0 C Pulse Rate 78 80 80 Respiratory Rate 18 18 18 Blood Pressure 165/71 H Pulse Oximetry 98 08/30/21 08:07 Temperature Pulse Rate 81 Respiratory Rate 20 Blood Pressure Pulse Oximetry Intake/Output Intake/Output: Intake & Output 08/27/21 08/28/21 08/29/21 08/30/21 23:59 23:59 23:59 23:59 Intake Total 100 920 870 50 Balance 100 920 870 50 Meds/Results Medications: Active Medications Generic Name Dose Route Start Last Admin Trade Name Freq PRN Reason Stop Dose Admin Acetaminophen 1,000 mg 08/28/21 18:00 08/30/21 05:25 Acetaminophen 500 Mg Tablet PO 1,000 mg Q12H HANNAH Administration Acetaminophen 650 mg 08/28/21 16:24 Acetaminophen 325 Mg Tablet P
[2021-08-31] VITALS (7 sets, daily range): BP systolic 136–162; BP diastolic 42–88; PULSE 71–78; RESP 17–20; TEMP 36.4–36.8; O2SAT 93–98
[2021-08-31] MEDS: HYDROcodone/acetaminophen (*CRX) 5-325 MG TABLET 1 TAB PO ×2 (00:02→06:26)
[2021-08-31] MEDS: IPRATROPIUM BR 0.02% INH SOLN 0.5 MG/2.5 ML VIAL INHALATION ×4 (02:39→19:58)
[2021-08-31] MEDS: ALBUTEROL SULFATE NEB 2.5 MG/0.5 ML INH INHALATION ×4 (02:39→19:58)
[2021-08-31] MEDS: ACETAMINOPHEN 500 MG TABLET 1000 MG PO ×2 (05:12→18:01)
[2021-08-31 06:16] LABS: Hematocrit 35.3 % (37.0-47.0); Hemoglobin 11.9 g/dL (12.0-15.0); Mean Corpuscular HGB Conc 33.7 g/dl (32-36); Mean Corpuscular Hemoglobin 26.8 pg (26-34); Mean Corpuscular Volume 79.5 fl (80-100); Mean Platelet Volume 11.1 fl (7.4-10.4); Platelet Count Result 290 k/mm3 (150-375); Red Blood Count 4.44 M/mm3 (4.2-5.4); Red Cell Distribution Width 13.7 % (11.5-14.5); White Blood Count 10.2 K/mm3 (4.5-10.0)
[2021-08-31 06:26] LABS: Alanine Aminotransferase 19 U/L (4-35); Albumin Level 3.5 g/dL (3.5-5.1); Alkaline Phosphatase 107 U/L (38-126); Anion Gap 4 mmol/L (8-16); Aspartate Amino Transferase 32 U/L (14-36); Bilirubin,Total 0.3 mg/dL (0.2-1.3); Blood Urea Nitrogen 16 mg/dL (7-17); Calcium 10.4 mg/dL (8.4-10.2); Carbon Dioxide 30 mmol/L (22-30); Chloride 101 mmol/L (98-107); Estimated CRCL calculation 78 ml/min; Estimated Glomerular Filt Rate > 60; Glucose 110 mg/dL (65-110); Potassium 3.7 mmol/L (3.4-5.0); Sodium 135 mmol/L (137-145)
[2021-08-31] MEDS: HYDROcodone/acetaminophen (*CRX) 10-325 MG TABLET 1 TAB PO (09:52)
[2021-08-31] MEDS: LIDOCAINE 5% PATCH 3 PATCH TRANSDERM (09:53)
[2021-08-31] MEDS: ASPIRIN 81 MG CHEWABLE TABLET PO (09:53)
[2021-08-31] MEDS: ENOXAPARIN 40 MG/0.4 ML SYRINGE SUB-Q (09:53)
[2021-08-31] MEDS: LOSARTAN POTASSIUM 50 MG TABLET PO (09:53)
[2021-08-31] MEDS: CHLORTHALIDONE 25 MG TABLET PO (09:53)
[2021-08-31] MEDS: SILVERGEL (ELTA) 45 ML 1 APPLIC TOPICAL (09:54)
--- NOTE | 2021-08-31 11:03 | PCPTNOTE ---
The patient treatment was not able to be completed on 08/31 due to patient being asleep and not waking up. Will plan to continue treatment per plan of care.
--- NOTE | 2021-08-31 15:07 | PCPTNOTE ---
The patient treatment was not able to be completed on 08/31 due to patient falling asleep and not being able to participate. Will plan to continue treatment per plan of care.
--- NOTE | 2021-08-31 15:18 | PM.IMPN ---
Progress Note: A&P Assessment and Plan (1) Leg wound, right: Qualifiers: Encounter type: initial encounter Qualified Code(s): S81.801A - Unspecified open wound, right lower leg, initial encounter Code(s): S81.801A - Unspecified open wound, right lower leg, initial encounter Status: Acute Assessment and Plan: Ulcer of left anterolateral lower extremity. Continue IV Ancef Wound cultures with moderate growth of group B strep Appreciate Wound Care consultation. Continue local wound care Supportive care. Elevate extremity. Analgesics available as needed Mild leukocytosis is improving. Preliminary blood cultures negative today Will check hemoglobin A1c (2) Cellulitis of right lower extremity: Code(s): L03.115 - Cellulitis of right lower limb Status: Acute Assessment and Plan: Plan as above (3) Hypertension: Code(s): I10 - Essential (primary) hypertension Status: Acute Assessment and Plan: Blood pressure reviewed and has been generally well controlled. Last BP 136/42 Continue losartan and chlorthalidone Monitor blood pressure trends (4) Hyperparathyroidism: Code(s): E21.3 - Hyperparathyroidism, unspecified Status: Chronic Assessment and Plan: Appears to be a chronic issue Calcium levels very mildly elevated. Calcium 10.4 this morning. Encouraged adequate hydration Ionized calcium level pending She has had elevated intact PTH levels for some time. Last PTH was 182.9 She will need outpatient follow-up and will benefit from referral to endocrinology Subjective Date/time seen: 08/31/21 15:18 Interval history: Date of service: 08/31/2021 Rosina Soria is a 65-year-old female with a history of hyperparathyroidism, hypertension, anemia who is seen in follow-up for wound of left lower extremity. Patient is somewhat of a poor historian as she will only answer ?yes? or ?no? to most questions, occasionally will provide a one-word response. Otherwise, it is difficult to obtain a history from the patient. She complains of a lower extremity wound that she states has been going on for ?months?. She describes a dull pain of the right leg. Denies nausea, vomiting, fever, or chills. No shortness of breath, cough, or chest pain. Review of Systems Review of Systems: All systems reviewed & are unremarkable except as noted in HPI and below Exam Narrative: Ms. Soria is an obese, well-appearing 65-year-old female who is sitting up in bed. She appears comfortable and is in NARD. Neuro: awake, alert and oriented x4, speech clear, no focal neuro deficits noted HEENMT: normocephalic, atraumatic, EOMI, sclerae anicteric, moist oral mucosa Neck: supple, no lymphadenopathy Respiratory: clear to auscultation bilaterally, nonlabored breathing Cardio: regular rate, regular rhythm with S1-S2 Abdomen: nondistended, normoactive bowel sounds, soft, nontender to palpation Extremities: Bilateral lower extremities with 2+ edema, nontender to palpation, able to wiggle toes bilaterally Skin: Left lower extremity is weeping serous fluid with dime-sized ulceration with white exudate. No significant odor. Psych: appropriate mood and affect, judgment and insight intact Objective Data Vital Signs Vital Signs: Vital Signs - 24 hr 08/30/21 15:19 08/30/21 20:00 08/30/21 20:17 Temperature 97.4 F L Pulse Rate 69 78 78 Respiratory Rate 14 20 20 Blood Pressure 141/78 H Pulse Oximetry 96 94 08/30/21 22:20 08/31/21 06:15 08/31/21 07:14 Temperature 97.6 F 97.6 F Pulse Rate 77 78 76 Respiratory Rate 20 18 20 Blood Pressure 138/66 162/83 H Pulse Oximetry 95 98 08/31/21 12:31 08/31/21 14:32 Temperature 98.0 F Pulse Rate 74 71 Respiratory Rate 20 20 Blood Pressure 136/42 L Pulse Oximetry 93 Intake/Output Intake/Output: Intake & Output 08/28/21 08/29/21 08/30/21 08/31/21 23:59 23:59 23:59 23:59 Inta
[2021-09-01] VITALS (14 sets, daily range): BP systolic 133–147; BP diastolic 55–80; PULSE 67–77; RESP 14–20; TEMP 36.1–36.4; O2SAT 95–100
[2021-09-01 01:11] LABS: Ionized Calcium 5.9 mg/dL (4.8-5.6)
[2021-09-01] MEDS: HYDROcodone/acetaminophen (*CRX) 10-325 MG TABLET 1 TAB PO (01:21)
[2021-09-01] MEDS: ALBUTEROL SULFATE NEB 2.5 MG/0.5 ML INH INHALATION ×4 (02:35→21:15)
[2021-09-01] MEDS: IPRATROPIUM BR 0.02% INH SOLN 0.5 MG/2.5 ML VIAL INHALATION ×4 (02:35→21:15)
[2021-09-01] MEDS: ACETAMINOPHEN 500 MG TABLET 1000 MG PO ×2 (06:01→17:31)
[2021-09-01 06:30] LABS: Hemoglobin A1C 5.2 % (<5.7)
[2021-09-01 07:02] LABS: Calcium 10.5 mg/dL (8.4-10.2)
[2021-09-01] MEDS: CHLORTHALIDONE 25 MG TABLET PO (08:12)
[2021-09-01] MEDS: ASPIRIN 81 MG CHEWABLE TABLET PO (08:12)
[2021-09-01] MEDS: LOSARTAN POTASSIUM 50 MG TABLET PO (08:13)
[2021-09-01] MEDS: SILVERGEL (ELTA) 45 ML 1 APPLIC TOPICAL (08:13)
[2021-09-01] MEDS: ENOXAPARIN 40 MG/0.4 ML SYRINGE SUB-Q (08:13)
[2021-09-01] MEDS: LIDOCAINE 5% PATCH 3 PATCH TRANSDERM (08:13)
--- NOTE | 2021-09-01 14:45 | PC.NURSE ---
On 09/01/21, the student, Maryjane Kramer, provided care and completed [facility] documentation on this patient. I have reviewed the student's documentation and agree with the findings.
--- NOTE | 2021-09-01 16:59 | PM.IMPN ---
Progress Note: A&P Assessment and Plan (1) Leg wound, right: Qualifiers: Encounter type: initial encounter Qualified Code(s): S81.801A - Unspecified open wound, right lower leg, initial encounter Code(s): S81.801A - Unspecified open wound, right lower leg, initial encounter Status: Acute Assessment and Plan: Ulcer of left anterolateral lower extremity. Continue IV Ancef Wound cultures with moderate growth of group B strep Appreciate Wound Care consultation. Continue local wound care Supportive care. Elevate extremity. Analgesics available as needed Mild leukocytosis improved. Preliminary blood cultures negative to date No evidence of diabetes. A1c 5.2 (2) Cellulitis of right lower extremity: Code(s): L03.115 - Cellulitis of right lower limb Status: Acute Assessment and Plan: Plan as above (3) Hypertension: Code(s): I10 - Essential (primary) hypertension Status: Acute Assessment and Plan: Blood pressure reviewed and has been generally well controlled. Last BP 140/55 Continue losartan and chlorthalidone Monitor blood pressure trends (4) Hyperparathyroidism: Code(s): E21.3 - Hyperparathyroidism, unspecified Status: Chronic Assessment and Plan: Appears to be a chronic issue Calcium levels very mildly elevated. Patient asymptomatic. Calcium 10.5 this morning. Encouraged adequate hydration. May be related to thiazide diuretic however patient has been on this for some time. Recheck calcium levels tomorrow and hold if increasing. Ionized calcium level mildly elevated at 5.9, consistent with prior labs. She has had elevated intact PTH levels for some time. Last PTH was 182.9 She will need outpatient follow-up and will benefit from referral to endocrinology Additional Plan Care coordination following. Considering HH vs SNF Subjective Date/time seen: 09/01/21 16:59 Interval history: Date of service: 08/31/2021 Rosina Soria is a 65-year-old female with a history of hyperparathyroidism, hypertension, anemia who is seen in follow-up for wound of left lower extremity. She is feeling well today and offers no complaints. Her wound is not bothersome her. She does state is draining some fluid. She has been eating well. Denies nausea, vomiting, abdominal pain, fever, or chills shortness breath, cough, chest pain. Unable to indicate her last bowel movement, though it is documented that she did have a bowel movement today. She denies dizziness, lightheadedness, weakness. Review of Systems Review of Systems: All systems reviewed & are unremarkable except as noted in HPI and below Exam Narrative: Ms. Soria is an obese, well-appearing 65-year-old female who is sitting up in bed. She appears comfortable and is in NARD. Neuro: awake, alert and oriented x4, speech clear, no focal neuro deficits noted HEENMT: normocephalic, atraumatic, EOMI, sclerae anicteric, moist oral mucosa Neck: supple, no lymphadenopathy Respiratory: clear to auscultation bilaterally, nonlabored breathing Cardio: regular rate, regular rhythm with S1-S2 Abdomen: nondistended, normoactive bowel sounds, soft, nontender to palpation Extremities: Bilateral lower extremities with 2+ chronic woody edema, nontender to palpation, able to wiggle toes bilaterally, sensation intact Skin: Left lower extremity is weeping serous fluid with dime-sized ulceration with white exudate on anterolateral left calf. No significant odor. Psych: appropriate mood and affect, judgment and insight intact Objective Data Vital Signs Vital Signs: Vital Signs - 24 hr 08/31/21 20:00 08/31/21 20:10 08/31/21 20:57 Temperature 98.3 F Pulse Rate 72 72 76 Respiratory Rate 20 20 17 Blood Pressure 153/88 H Pulse Oximetry 97 09/01/21 02:35 09/01/21 02:45 09/01/21 05:57 Temperature 97.6 F Pulse Rate 72 72 73 Respiratory Rate 20 20 18 Blood Pressur
[2021-09-02] VITALS (12 sets, daily range): BP systolic 115–133; BP diastolic 50–59; PULSE 63–73; RESP 16–20; TEMP 36.1–37.3; O2SAT 96–98
[2021-09-02] MEDS: HYDROcodone/acetaminophen (*CRX) 5-325 MG TABLET 1 TAB PO (00:25)
[2021-09-02] MEDS: IPRATROPIUM BR 0.02% INH SOLN 0.5 MG/2.5 ML VIAL INHALATION ×4 (01:47→19:52)
[2021-09-02] MEDS: ALBUTEROL SULFATE NEB 2.5 MG/0.5 ML INH INHALATION ×4 (01:47→19:52)
[2021-09-02] MEDS: ACETAMINOPHEN 500 MG TABLET 1000 MG PO ×2 (05:56→18:01)
[2021-09-02 06:00] LABS: Hematocrit 35.1 % (37.0-47.0); Mean Corpuscular HGB Conc 34.2 g/dl (32-36); Mean Corpuscular Hemoglobin 27.6 pg (26-34); Mean Corpuscular Volume 80.7 fl (80-100); Mean Platelet Volume 11.2 fl (7.4-10.4); Platelet Count Result 303 k/mm3 (150-375); Red Blood Count 4.35 M/mm3 (4.2-5.4); Red Cell Distribution Width 13.8 % (11.5-14.5); White Blood Count 10.5 K/mm3 (4.5-10.0)
[2021-09-02 06:12] LABS: Alanine Aminotransferase 23 U/L (4-35); Albumin Level 3.4 g/dL (3.5-5.1); Alkaline Phosphatase 103 U/L (38-126); Anion Gap 3 mmol/L (8-16); Aspartate Amino Transferase 34 U/L (14-36); Bilirubin,Total 0.4 mg/dL (0.2-1.3); Blood Urea Nitrogen 18 mg/dL (7-17); Calcium 10.5 mg/dL (8.4-10.2); Carbon Dioxide 28 mmol/L (22-30); Chloride 102 mmol/L (98-107); Estimated CRCL calculation 78 ml/min; Estimated Glomerular Filt Rate > 60; Glucose 105 mg/dL (65-110); Potassium 3.5 mmol/L (3.4-5.0); Sodium 133 mmol/L (137-145)
[2021-09-02] MEDS: HYDROcodone/acetaminophen (*CRX) 10-325 MG TABLET 1 TAB PO ×2 (08:56→21:51)
[2021-09-02] MEDS: CHLORTHALIDONE 25 MG TABLET PO (08:57)
[2021-09-02] MEDS: LOSARTAN POTASSIUM 50 MG TABLET PO (08:57)
[2021-09-02] MEDS: ENOXAPARIN 40 MG/0.4 ML SYRINGE SUB-Q (08:57)
[2021-09-02] MEDS: LIDOCAINE 5% PATCH 3 PATCH TRANSDERM (08:57)
[2021-09-02] MEDS: SILVERGEL (ELTA) 45 ML 1 APPLIC TOPICAL (08:57)
[2021-09-02] MEDS: ASPIRIN 81 MG CHEWABLE TABLET PO (08:57)
--- NOTE | 2021-09-02 16:33 | PM.IMPN ---
Progress Note: A&P Assessment and Plan (1) Leg wound, right: Qualifiers: Encounter type: initial encounter Qualified Code(s): S81.801A - Unspecified open wound, right lower leg, initial encounter Code(s): S81.801A - Unspecified open wound, right lower leg, initial encounter Status: Acute Assessment and Plan: Ulcer of left anterolateral lower extremity. Continue IV Ancef. Will plan to discharge with Keflex to complete 14 days of antibiotics Right lower extremity CT with no evidence of abscess or osteomyelitis Wound cultures with moderate growth of group B strep Appreciate Wound Care consultation. Continue local wound care Supportive care. Elevate extremity. Analgesics available as needed Mild leukocytosis improved. Blood cultures negative No evidence of diabetes. A1c 5.2 (2) Cellulitis of right lower extremity: Code(s): L03.115 - Cellulitis of right lower limb Status: Acute Assessment and Plan: Plan as above (3) Hypertension: Code(s): I10 - Essential (primary) hypertension Status: Acute Assessment and Plan: Blood pressure reviewed and has been reasonably well controlled. Last BP 115/50 Continue losartan and chlorthalidone Monitor blood pressure trends (4) Hyperparathyroidism: Code(s): E21.3 - Hyperparathyroidism, unspecified Status: Chronic Assessment and Plan: Appears to be a chronic issue Calcium levels very mildly elevated. Patient asymptomatic. Calcium remains just mildly elevated at 10.5. Encourage adequate hydration. Will hold chlorthalidone Ionized calcium level mildly elevated at 5.9, consistent with prior labs. She has had elevated intact PTH levels for some time. Last PTH was 182.9 She will need outpatient follow-up and will benefit from referral to endocrinology (5) Lower extremity edema: Code(s): R60.0 - Localized edema Status: Acute Assessment and Plan: Chronic appearing edema of the bilateral lower extremities Right venous Doppler negative for DVT. Right lower extremity CT showed skin thickening and subcutaneous edema. Will evaluate left lower extremity venous Doppler Elevate extremities Additional Plan Planning for SNF on discharge. Care coordination following to arrange placement Subjective Date/time seen: 09/02/21 16:33 Interval history: Date of service: 09/02/2021 Rosina Soria is a 65-year-old female with a history of hyperparathyroidism, hypertension, anemia who is seen in follow-up for wound of left lower extremity. She is a fair historian at best. She is doing okay today. She reports feeling sleepy. She did get up and work with therapy today. Reports she is having difficulty getting around due to pain in her leg. She has been eating well. Denies any urinary symptoms. She thinks her leg is feeling a little bit better today. She denies any drainage. She has no additional concerns. Review of Systems Review of Systems: All systems reviewed & are unremarkable except as noted in HPI and below Exam Narrative: Ms. Soria is an obese, well-appearing 65-year-old female who is sitting up in bed. She appears comfortable and is in NARD. Neuro: awake, alert and oriented x4, answering questions appropriately, speech clear, no focal neuro deficits noted HEENMT: normocephalic, atraumatic, EOMI, sclerae anicteric, moist oral mucosa Neck: supple, no lymphadenopathy Respiratory: clear to auscultation bilaterally, nonlabored breathing Cardio: regular rate, regular rhythm with S1-S2 Abdomen: nondistended, normoactive bowel sounds, soft, nontender to palpation Extremities: Bilateral lower extremities with 2+ chronic woody edema, slightly tender to palpation, able to wiggle toes bilaterally, sensation intact Skin: Left lower extremity with dime-sized ulceration on anterolateral left calf, no drainage or purulence. No significant odor. Psych: appropriate
--- NOTE | 2021-09-02 19:57 | PCRCNOTE ---
Pt needs reinforcement to keep nebulizer mask on during treatment. She takes it off continually stating that she can't see with it on.
[2021-09-03] VITALS (7 sets, daily range): BP systolic 128–145; BP diastolic 56–76; PULSE 55–63; RESP 16–18; TEMP 36.1–37.2; O2SAT 96–100
[2021-09-03] MEDS: ALBUTEROL SULFATE NEB 2.5 MG/0.5 ML INH INHALATION (01:47)
[2021-09-03] MEDS: IPRATROPIUM BR 0.02% INH SOLN 0.5 MG/2.5 ML VIAL INHALATION (01:47)
[2021-09-03] MEDS: HYDROcodone/acetaminophen (*CRX) 10-325 MG TABLET 1 TAB PO ×3 (04:24→20:09)
[2021-09-03 06:22] LABS: Hematocrit 35.3 % (37.0-47.0); Hemoglobin 12.2 g/dL (12.0-15.0); Mean Corpuscular HGB Conc 34.6 g/dl (32-36); Mean Corpuscular Hemoglobin 27.1 pg (26-34); Mean Corpuscular Volume 78.3 fl (80-100); Platelet Count Result 318 k/mm3 (150-375); Red Blood Count 4.51 M/mm3 (4.2-5.4); Red Cell Distribution Width 13.5 % (11.5-14.5); White Blood Count 9.9 K/mm3 (4.5-10.0)
[2021-09-03] MEDS: ACETAMINOPHEN 500 MG TABLET 1000 MG PO ×2 (06:27→17:52)
[2021-09-03 06:38] LABS: Anion Gap 4 mmol/L (8-16); Blood Urea Nitrogen 18 mg/dL (7-17); Calcium 10.6 mg/dL (8.4-10.2); Carbon Dioxide 30 mmol/L (22-30); Chloride 102 mmol/L (98-107); Estimated CRCL calculation 78 ml/min; Estimated Glomerular Filt Rate > 60; Glucose 96 mg/dL (65-110); Potassium 3.3 mmol/L (3.4-5.0); Sodium 136 mmol/L (137-145)
[2021-09-03] MEDS: ENOXAPARIN 40 MG/0.4 ML SYRINGE SUB-Q (08:37)
[2021-09-03] MEDS: POTASSIUM CHLORIDE 20 MEQ TABLET PO (08:37)
[2021-09-03] MEDS: LOSARTAN POTASSIUM 50 MG TABLET PO (08:37)
[2021-09-03] MEDS: ASPIRIN 81 MG CHEWABLE TABLET PO (08:37)
[2021-09-03] MEDS: LIDOCAINE 5% PATCH 3 PATCH TRANSDERM (08:38)
[2021-09-03] MEDS: SILVERGEL (ELTA) 45 ML 1 APPLIC TOPICAL (08:38)
--- NOTE | 2021-09-03 10:40 | PCRCNOTE ---
Window of time for administration has passed. See next scheduled administration.
--- NOTE | 2021-09-03 15:56 | PM.DS ---
DS: Admitting Diagnosis Discharge Date 09/03/2021 Admitting Diagnosis Right leg wound DS: Discharge Diagnosis Discharge Diagnosis (1) Leg wound, right: Qualifiers: Encounter type: initial encounter Qualified Code(s): S81.801A - Unspecified open wound, right lower leg, initial encounter Code(s): S81.801A - Unspecified open wound, right lower leg, initial encounter Status: Acute Assessment and Plan: Ulcer of left anterolateral lower extremity. Wound cultures with moderate growth of group B strep Right lower extremity CT with no evidence of abscess or osteomyelitis. Venous doppler negative for DVT. Treated with IV Ancef during admission. Will continue PO Keflex to complete 10 days of antibiotic therapy She had overall improvement with resolution of wound drainage and improved pain. Leukocytosis resolved. Remained afebrile. Blood cultures negative. She was seen in consultation by wound care. Continue silver gel application daily. Supportive care provided. Elevate extremities. (2) Cellulitis of right lower extremity: Code(s): L03.115 - Cellulitis of right lower limb Status: Acute Assessment and Plan: Plan as above (3) Hypertension: Code(s): I10 - Essential (primary) hypertension Status: Acute Assessment and Plan: Blood pressure reviewed and were controlled. Continue losartan. Chlorthalidone changed to furosemide (see below). (4) Hyperparathyroidism: Code(s): E21.3 - Hyperparathyroidism, unspecified Status: Chronic Assessment and Plan: Chronic Calcium levels very mildly elevated (10.3-10.6). Patient asymptomatic. Due to mild hypercalcemia, chlorthalidone was discontinued and she was started on low dose furosemide 20 mg daily. Potassium supplement added with furosemide. Ionized calcium level mildly elevated at 5.9, consistent with prior labs. She has had elevated intact PTH levels for some time. Last PTH was 182.9 She will need outpatient follow-up and will benefit from referral to endocrinology (5) Lower extremity edema: Code(s): R60.0 - Localized edema Status: Acute Assessment and Plan: Chronic appearing edema of the bilateral lower extremities Bilateral venous doppler negative for DVT. Right lower extremity CT showed skin thickening and subcutaneous edema. Elevate extremities DS: Summary Hospital Course Hospital Course: Date of admission: 08/27/2021 Date of discharge: 09/03/2021 Rosina Soria is a 65-year-old female with a history of hyperparathyroidism, hypertension, anemia who presented to the emergency department on 08/27/2021 with complaints of right leg pain with a wound on the leg. She was admitted to the hospitalist service for further evaluation and management. Please see above for further details. She had symptomatic improvement with IV antibiotics and will continue taking antibiotics to complete a 10 day course. Continue with daily local wound care. Patient participated in PT/OT during her hospitalization was found to benefit from continued rehab at SNF. This was arranged and the patient was discharged in hemodynamically stable condition on 09/03/2021 to SNF. Discussed with the patient worrisome signs and symptoms for which to return. She is aware of need for outpatient follow-up with her PCP Status at Discharge Overall status at discharge: patient is progressing back to baseline Time Spent with Patient Time attestation: Total time spent providing and/or coordinating discharge services: 38 minutes Exam Narrative: Ms. Soria is an obese, well-appearing 65-year-old female who is sitting sitting in a recliner. She appears comfortable and is in NARD. Neuro: awake, alert and oriented x4, answering questions appropriately, speech clear, no focal neuro deficits noted HEENMT: normocephalic, atraumatic, EOMI, sclerae anicteric Respiratory: clear to auscultation
[2021-09-03 16:03] LABS: EDCOVIDSCREEN Negative (Negative)
[2021-09-04 07:53] LABS: Ionized Calcium 5.7 mg/dL (4.8-5.6)
== END 2021-09-03 22:50 | DRG 603 ==
LOC: ANHED 18:39 → ANH3MED 20:50
PROVIDERS: Nurse Practitioner; Nurse Practitioner Adult Health; Physician Assistant; Admitting Provider Internal Medicine; Emergency Provider Emergency Medicine; PCP Family Medicine; Visit Provider Physician Assistant
DX: L03.115 Cellulitis of right lower limb (principal); Z68.41 Body mass index [BMI] 40.0-44.9, adult; B95.1 Streptococcus, group B, as the cause of diseases classified elsewhere; E66.3 Overweight; I83.018 Varicose veins of right lower extremity with ulcer other part of lower leg; I10 Essential (primary) hypertension; E21.3 Hyperparathyroidism, unspecified; L40.9 Psoriasis, unspecified; R60.0 Localized edema; Z20.822 Contact with and (suspected) exposure to COVID-19
CPT/HCPCS: 36415; 73701; 80048; 80053; 81001; 82310; 82330; 82728; 83036; 83605; 83615; 83735; 84443; 85025; 85027; 87040; 87070; 87077; 87086; 87088; 87205; 87426; 93971; 94640; 96365; 96366; 96372; 96375; 96376; 97110; 97116; 97161; 97165; 97530; 99285; A9270; C9803; G0378; J0690; J1170; J1650; J2060; J3475; Q9967; U0003; U0005

== ENCOUNTER 2022-01-08 15:23 | Emergency (ER) | payer MEDICARE, SELFPAY ==
--- NOTE | ~2022-01-08 | XR_ITS ---
XR tibia fibula RT 2V DATE: 01/08/2022 17:42 INDICATION: Pain, weeping TECHNIQUE: AP and crosstable lateral views of the right lower leg COMPARISON: None FINDINGS: Very prominent thickness of the soft tissues which may be due to morbid obesity and/or patricia a. There is periarticular spurring of the patella. No fracture or dislocation, periosteal reaction or bone destruction. Posterior calcaneal enthesopathy. IMPRESSION: No fracture, dislocation, periosteal reaction or bone destruction of the tibia or fibula Posterior calcaneal enthesopathy Patellofemoral osteoarthritis Reviewed, dictated and finalized at location A. IMPRESSION: No fracture, dislocation, periosteal reaction or bone destruction o f the tibia or fibula Posterior calcaneal enthesopathy Patellofemoral osteoarthritis
[2022-01-08 15:26] VITALS: BP 172/96; PULSE 82; RESP 18; TEMP 36.7; O2SAT 98
--- NOTE | 2022-01-08 17:31 | ED.LOWEXIN ---
HPI - Extremity Injury (Lower) General Chief Complaint: Extremity Problem,Nontraumatic Stated Complaint: right leg pain Time Seen by Provider: 01/08/22 17:13 History of Present Illness HPI Narrative: 66-year-old female presents to the emergency room complaints of right lower extremity pain and a recurrent ulceration. Patient was seen in the emergency room August of this year for similar symptoms. Patient was hospitalized for approximately 5 days, discharged home and was followed by wound care. Patient is accompanied by her daughter who she lives with. Daughter states that patient chronically complains of right lower extremity pain, following her hip repair. Daughter also states patient sleeps in a reclining chair with her legs in a dependent position. Patient and family both state that the open wound has been present for about 1 week at this time, and is draining clear fluid and is not malodorous. Related Data Home Medications Medication Instructions Recorded Confirmed aspirin 81 mg tablet 81 mg PO DAILY 06/25/20 08/27/21 losartan 50 mg tablet 50 mg PO DAILY 06/25/20 08/27/21 ipratropium 0.5 mg-albuterol 3 mg 3 ml inhalation Q4H PRN sob 08/27/21 08/27/21 (2.5 mg base)/3 mL nebulization soln Allergies Allergy/AdvReac Type Severity Reaction Status Date / Time No Known Allergies Allergy Verified 01/08/22 17:27 Review of Systems Review of Systems: CONSTITUTIONAL: Denies fever, chills, or sweats. EYES: Denies visual changes, redness, or discharge. ENT: Denies rhinorrhea, congestion, sore throat, or otalgia. CARDIOVASCULAR: Denies chest pain, palpitations, or edema. RESPIRATORY: Denies cough or dyspnea. GASTROINTESTINAL: Denies abdominal pain, nausea, vomiting, or diarrhea. GENITOURINARY: Denies dysuria or hematuria. SKIN: Reports open wound to right lower extremity MUSCULOSKELETAL: Reports right lower extremity pain NEUROLOGIC: Denies headache, numbness, dizziness, or weakness. PSYCHIATRIC: Denies anxiety or depression. [facility] Past Medical History Medical History (Updated 01/08/22 @ 19:40 by Danny Lawrence, BAM) Anemia GI bleeding Hyperparathyroidism Hypertension Osteoporosis Urinary tract infection Surgical History Surgical History History of section, classical History of tonsillectomy Family History Family History Father Emphysema lung Mother Cancer Social History Social History (Updated 08/27/21 @ 19:51 by Oriana Hastings NP) Social History: She lives with daughter who is her only child. She is single and is disabled. The patient stated that she has never smoked or use tobacco products. She denies any alcohol marijuana illicit drugs. Code status full code Smoking packs per day: 0.5 Smoking cigarettes per day: 10.0 Years smoked: 40 Smoking pack-years: 20.00 Smoking status: Former smoker Tobacco type: cigarettes Alcohol intake: never Substance use: never Additional living arrangements comments: Lives with Daughter Kirstie Gender identity (if verbalized by the patient): Female Spiritual care concerns: No Exam Narrative: GENERAL: Well-appearing, well-nourished, and in no acute distress. HEAD: Normocephalic, atraumatic. EYES: PERRLA and EOMI. CHEST: Clear to auscultation. No respiratory distress. No wheezes rales or rhonchi HEART: Regular rate and rhythm. No murmur heard. peripheral pulses present per doppler EXTREMITIES: Bilateral edematous legs with overlying skin discoloration and thickening; right lower extremity: Large erythematous weeping wound to the anterior lateral surface SKIN: Warm, dry, no rash. NEURO: No focal deficits. Alert and oriented x3. PSYCH: Normal mood and affect. Course Course Emergency Course: 1934: Discussed case with Dr. Jesus. She requests to be called in the morning following the results. Vital Signs V
--- NOTE | 2022-01-08 18:30 | PC.NURSE ---
right pedal pulse present per doppler
[2022-01-08 18:34] LABS: Basophils Absolute Auto 0.1 K/mm3 (0.0-0.1); Basophils Percent Auto 0.4 % (0.2-1.2); Eosinophils Absolute Auto 0.3 K/mm3 (0-0.3); Eosinophils Percent Auto 2.8 % (0-4.4); Hematocrit 39.3 % (37.0-47.0); Hemoglobin 13.2 g/dL (12.0-15.0); Immature Granulocyte Absolute 0.03 K/mm3 (0.00-0.031); Immature Granulocyte Percent A 0.3 % (0-0.5); Lymphocytes Absolute Auto 1.99 K/mm3 (0.9-3.2); Lymphocytes Percent Auto 17.4 % (18.3-44.2); Mean Corpuscular HGB Conc 33.6 g/dl (32-36); Mean Corpuscular Hemoglobin 26.7 pg (26-34); Mean Corpuscular Volume 79.6 fl (80-100); Mean Platelet Volume 11.9 fl (7.4-10.4); Monocytes Absolute Auto 0.9 K/mm3 (0.1-0.6); Monocytes Percent Auto 7.9 % (2.6-8.5); Neutrophils Absolute Auto 8.2 K/mm3 (1.3-6.7); Neutrophils Percent Auto 71.2 % (45.5-73.1); Platelet Count Result 274 k/mm3 (150-375); Red Blood Count 4.94 M/mm3 (4.2-5.4); Red Cell Distribution Width 14.3 % (11.5-14.5); White Blood Count 11.5 K/mm3 (4.5-10.0)
[2022-01-08 18:43] LABS: Alanine Aminotransferase 18 U/L (6-35); Albumin Level 4.1 g/dL (3.5-5.1); Alkaline Phosphatase 126 U/L (38-126); Anion Gap 7 mmol/L (8-16); Aspartate Amino Transferase 21 U/L (14-36); Bilirubin,Total 0.6 mg/dL (0.2-1.3); Blood Urea Nitrogen 18 mg/dL (7-17); Calcium 10.4 mg/dL (8.4-10.2); Carbon Dioxide 30 mmol/L (22-30); Chloride 105 mmol/L (98-107); Estimated CRCL calculation 72 ml/min; Estimated Glomerular Filt Rate > 60; Glucose 101 mg/dL (65-110); Potassium 3.7 mmol/L (3.4-5.0); Sodium 142 mmol/L (137-145)
[2022-01-08 18:44] LABS: Lactic Acid Reflex 0.8 mmol/L (0.7-2.0)
[2022-01-08 18:48] LABS: D Dimer 1.07 ug/mL (<0.48)
[2022-01-08 18:52] LABS: NT Pro B Type Natriuretic Pept 50 pg/mL (5-100)
[2022-01-08] MEDS: AMPICILLIN SULB 3 GM/NS 100 ML 3 GM/100 ML VIAL IVPB (19:25)
[2022-01-08] MEDS: HYDROcodone/acetaminophen (*CRX) 5-325 MG TABLET 1 TAB PO (19:38)
[2022-01-08] MEDS: ENOXAPARIN 40 MG/0.4 ML SYRINGE SUB-Q (19:40)
[2022-01-08 19:50] VITALS: BP 187/89; PULSE 87; RESP 20; O2SAT 98
== END 2022-01-08 20:22 | disposition home or self-care (01) ==
PROVIDERS: Emergency Provider Nurse Practitioner Family; PCP Family Medicine
DX: L97.919 Non-pressure chronic ulcer of unspecified part of right lower leg with unspecified severity (principal); M79.604 Pain in right leg; E21.3 Hyperparathyroidism, unspecified; I10 Essential (primary) hypertension; M81.0 Age-related osteoporosis without current pathological fracture; Z87.440 Personal history of urinary (tract) infections; Z86.2 Personal history of diseases of the blood and blood-forming organs and certain disorders involving the immune mechanism; Z79.82 Long term (current) use of aspirin; Z87.891 Personal history of nicotine dependence; M17.11 Unilateral primary osteoarthritis, right knee
CPT/HCPCS: 36415; 73590; 80053; 83605; 83880; 85025; 85380; 87040; 96365; 96372; 99284; A9270; J0295; J1650

== ENCOUNTER 2022-02-16 14:21 | Inpatient (IN) | payer MEDICARE, SELFPAY ==
[2022-02-16] VITALS (8 sets, daily range): BP systolic 111–153; BP diastolic 46–98; PULSE 69–97; RESP 18–20; TEMP 36.5; O2SAT 97–100
--- NOTE | ~2022-02-16 | CT_ITS ---
EXAMINATION: CTA LE RT DATE: 02/16/2022 16:46 INDICATION: Leg wound, rule out necrotizing infection. Right leg pain, diagnosed with cellulitis 3 we eks ago, antibiotics not working, leg swelling and weeping. TECHNIQUE: Computed tomographic angiography (CTA) of the pelvis, and right lower extremity was perfor med with 150 mL Omnipaque-350 intravenous contrast. Automated exposure control and iterative reconstr uction technique were employed. The dose-length product was 1011.77 mGy-cm. Maximum intensity project ion 3D-reconstructions of the arteries were created by the technologist on a separate workstation. COMPARISON: None. FINDINGS: Significant venous contamination. PELVIC VASCULATURE: Aortic and iliac bifurcations not included in the [id number]. Severe short segment stenoses in the bilateral internal iliac arteries. RIGHT LOWER EXTREMITY VASCULATURE: Multifocal severe stenoses in the right mid and lower superficial femoral artery. Minimal/slow flow a t the trifurcation and in the distal arteries of the right leg which are patent below the level of th e ankle. LEFT LOWER EXTREMITY VASCULATURE: Multifocal short segment severe stenoses in the visualized portions of the left superficial femoral a rtery, popliteal artery, and trifurcation. ADDITIONAL FINDINGS: Severe dermal thickening, subcutaneous edema, and superficial fascial edema of the right leg beginnin g at the level of the knee and extending to the level of the dorsal foot. No definite deep compartmen t involvement. Uncomplicated appearing right hip arthroplasty. No acute osseous finding. IMPRESSION: 1. Severe generalized atherosclerotic disease, with multifocal severe bilateral internal iliac and s uperficial femoral artery stenoses. 2. Minimal/slow flow in the distal arteries of the right leg, visualization of which is difficult due to venous contamination, although there does appear to be minimal three-vessel flow below the level of the ankle. 3. Severe right leg edema and/or cellulitis, with superficial fascial involvement but no definite inv olvement of the deep fascial layers or lytic compartments. Necrotizing infection cannot be excluded b y imaging. Reviewed, dictated and finalized at location K. IMPRESSION: 1. Severe generalized atherosclerotic disease, with multifocal severe bilatera l internal iliac and superficial femoral artery stenoses. 2. Minimal/slow flow in the distal arteries of the right leg, visualization of which is difficult due to venous contamination, although there does appear to b e minimal three-vessel flow below the level of the ankle. 3. Severe right leg edema and/or cellulitis, with superficial fascial involveme nt but no definite involvement of the deep fascial layers or lytic compartments . Necrotizing infection cannot be excluded by imaging.
--- NOTE | ~2022-02-16 | XR_ITS ---
EXAMINATION: XR chest 1V portable DATE: 02/17/2022 07:47 INDICATION: COVID-19 pneumonia. TECHNIQUE: A single frontal view of the chest was obtained. COMPARISON: Chest 2 views 11/28/2020 FINDINGS: There are airspace opacities in the lower lung zones. No pleural effusion or pneumothorax. The heart size is normal. IMPRESSION: 1. Airspace opacities in the lower lung zones, consistent with atelectasis versus pneumonia. Reviewed, dictated and finalized at location A. IMPRESSION: 1. Airspace opacities in the lower lung zones, consistent with atelectasis vers us pneumonia.
--- NOTE | ~2022-02-16 | XR_ITS ---
EXAMINATION: XR chest 1V portable DATE: 02/19/2022 13:52 INDICATION: Wheezing. COVID-19 positive. TECHNIQUE: A single frontal view of the chest was obtained. COMPARISON: Chest single view 02/17/2022, chest 2 views 11/28/2020 FINDINGS: There is mild elevation of right hemidiaphragm. There are reticular opacities in right lung base. No pleural effusion or pneumothorax. The heart size is normal. IMPRESSION: 1. Reticular opacities at right lung base, consistent with mild atelectasis versus atypical pneumonia . Reviewed, dictated and finalized at location A. IMPRESSION: 1. Reticular opacities at right lung base, consistent with mild atelectasis hsay teto atypical pneumonia.
--- NOTE | 2022-02-16 14:37 | ED.EXTPRO ---
HPI - Extremity Problem General Chief complaint: Extremity Problem,Nontraumatic Stated complaint: right leg pain/cellulitis Time Seen by Provider: 02/16/22 14:37 History of Present Illness HPI Narrative: The patient is a 66-year-old female with a history of hypertension, dementia, chronic venous insufficiency, recurrent right lower extremity cellulitis, presenting to the emergency department for evaluation of right lower extremity swelling and pain. Patient states that she has had 1 month history of worsening symptoms and has been on oral outpatient antibiotic therapy which is not improved the wound. Patient also reports that she has been able to reestablish with wound care, and hence the appearance of the wound has become more swollen, more painful, weeping fluid. Patient's family denies any purulent discharge. Patient reports general discomfort and pain is aggravated with movement. She denies any fever, chills, nausea or vomiting. Patient with history of this in the past which she was admitted in August of this year. At that point, symptoms had cleared with IV Ancef and she was transitioned to oral antibiotics. Was then seen January 08 of this year where she was given a dose of IV Unasyn and had a Doppler ultrasound study outpatient which was negative. Patient was continued on oral Keflex outpatient and then broadened to Clindamycin. Related Data Home Medications Medication Instructions Recorded Confirmed aspirin 81 mg tablet 81 mg PO DAILY 06/25/20 08/27/21 losartan 50 mg tablet 50 mg PO DAILY 06/25/20 08/27/21 ipratropium 0.5 mg-albuterol 3 mg 3 ml inhalation Q4H PRN sob 08/27/21 08/27/21 (2.5 mg base)/3 mL nebulization soln Allergies Allergy/AdvReac Type Severity Reaction Status Date / Time No Known Allergies Allergy Verified 01/08/22 17:27 Review of Systems Review of Systems: CONSTITUTIONAL: Denies fever, chills, or sweats. ENT: Denies rhinorrhea, congestion, sore throat, or otalgia. CARDIOVASCULAR: Denies chest pain, palpitations, or edema. RESPIRATORY: Denies cough or dyspnea. GASTROINTESTINAL: Denies abdominal pain, nausea, vomiting, or diarrhea. GENITOURINARY: Denies dysuria or hematuria. SKIN: Reports swelling, weeping wound to right lower extremity MUSCULOSKELETAL: Denies back pain, joint pain; reports right lower extremity pain. NEUROLOGIC: Denies headache, numbness, or weakness. [facility] Past Medical History Medical History (Updated 02/16/22 @ 18:08 by Doreen Manzo MD) Anemia Cellulitis of right lower extremity Chronic venous stasis GI bleeding Hyperparathyroidism Hypertension Leg pain Leg wound, right Leg wound, right Leukocytosis Lower extremity edema Osteoporosis Urinary tract infection Weakness Wheezing Surgical History Surgical History History of section, classical History of tonsillectomy Family History Family History Father Emphysema lung Mother Cancer Social History Social History Social History: She lives with daughter who is her only child. She is single and is disabled. The patient stated that she has never smoked or use tobacco products. She denies any alcohol marijuana illicit drugs. Code status full code Smoking packs per day: 0.5 Smoking cigarettes per day: 10.0 Years smoked: 40 Smoking pack-years: 20.00 Smoking status: Former smoker Tobacco type: cigarettes Alcohol intake: never Substance use: never Additional living arrangements comments: Lives with Daughter Kirstie Gender identity (if verbalized by the patient): Female Spiritual care concerns: No Exam Narrative: GENERAL: Awake, alert, intermittently streaking in pain HEAD: Normocephalic, atraumatic. EYES: PERRLA and EOMI. ENT: Nares clear, no rhinorrhea or epistaxis. Mucous membranes moist. NECK
[2022-02-16] MEDS: MORPHINE SULFATE (*CRX) 4 MG/ML INJ IV PUSH ×2 (15:44→17:23)
[2022-02-16 16:05] LABS: Basophils Absolute Auto 0.1 K/mm3 (0.0-0.1); Basophils Percent Auto 0.5 % (0.2-1.2); Eosinophils Absolute Auto 0.2 K/mm3 (0-0.3); Eosinophils Percent Auto 1.9 % (0-4.4); Hematocrit 32.5 % (37.0-47.0); Immature Granulocyte Absolute 0.04 K/mm3 (0.00-0.031); Immature Granulocyte Percent A 0.4 % (0-0.5); Lymphocytes Absolute Auto 1.87 K/mm3 (0.9-3.2); Lymphocytes Percent Auto 17.7 % (18.3-44.2); Mean Corpuscular HGB Conc 33.8 g/dl (32-36); Mean Corpuscular Hemoglobin 26.5 pg (26-34); Mean Corpuscular Volume 78.3 fl (80-100); Mean Platelet Volume 11.5 fl (7.4-10.4); Monocytes Absolute Auto 1.1 K/mm3 (0.1-0.6); Monocytes Percent Auto 10.1 % (2.6-8.5); Neutrophils Absolute Auto 7.3 K/mm3 (1.3-6.7); Neutrophils Percent Auto 69.4 % (45.5-73.1); Platelet Count Result 356 k/mm3 (150-375); Red Blood Count 4.15 M/mm3 (4.2-5.4); Red Cell Distribution Width 13.4 % (11.5-14.5); White Blood Count 10.6 K/mm3 (4.5-10.0)
[2022-02-16 16:15] LABS: Anion Gap 4 mmol/L (8-16); Blood Urea Nitrogen 26 mg/dL (7-17); CRP 3.6 mg/dL (<1.0); Calcium 9.9 mg/dL (8.4-10.2); Carbon Dioxide 31 mmol/L (22-30); Chloride 104 mmol/L (98-107); Estimated CRCL calculation 48 ml/min; Estimated Glomerular Filt Rate 50; Glucose 100 mg/dL (65-110); Potassium 2.9 mmol/L (3.4-5.0); Sodium 139 mmol/L (137-145)
[2022-02-16 16:37] LABS: SARS-CoV-2 RNA PCR Positive
[2022-02-16 16:41] LABS: Erythrocyte Sedimentation Rate 72 mm/hr (0-20)
[2022-02-16] MEDS: POTASSIUM CHLORIDE 20 MEQ TABLET 40 MEQ PO (17:55)
--- NOTE | 2022-02-16 18:00 | PC.NURSE ---
patient reminder multiple times to remain in bed and continues to climb out of bed and to the foot end of bed. states she is too weak to be able to get back into bed without help and is difficult to get back into bed. will not leave monitoring equpiment in place and pulls down mask to cough and refuses to leave mask on
[2022-02-16] MEDS: HYDROmorphone HCL INJ (*CRX) 1 MG/ML SYR 0.5 MG IV PUSH (18:54)
--- NOTE | 2022-02-16 23:31 | PC.NURSE ---
Per Dasha RN, report was given to floor prior to this RN taking over team. Floor received report but declined to let pt come to floor due to busy and not able to sit with a combative patient that is getting out of bed. Per Dasha, the RN is requesting to talk to the [place] sup Katja prior to pt coming to floor. Sitter remains at bedside to RM 8, lights are dimmed, pt is currently resting on stretcher. hide trimmer Mary Grace aware of situation and awaiting call back from [facility].
[2022-02-17] VITALS (12 sets, daily range): BP systolic 133–146; BP diastolic 54–82; PULSE 77–104; RESP 18–20; TEMP 36.2–36.6; O2SAT 93–97; BMI 41.4
--- NOTE | 2022-02-17 00:20 | PC.NURSE ---
The quotation made by the prior nurse is inaccurate.
--- NOTE | 2022-02-17 01:19 | ADMGEN ---
This patient, Rosina Soria, was admitted to 3 [facility] Surg Room 317-01. Patient/family oriented to hospital policies and general routines including ID bracelet, bed and alarms, visiting hours, pain management, procedures, bathroom and other care routines, personal items, smoking policy, room service/diet, and visiting hours. Information on how to activate the Rapid Response Team has been discussed. Patient/Family are encouraged to report perceived risks to care and to ask questions if they do not understand what they are told or what they should do.
--- NOTE | 2022-02-17 01:24 | PM.IMHP ---
H&P: HPI History of Present Illness Date/Time: 02/17/22 01:24 Chief Complaint: right leg pain Narrative: 66-year-old female with a past medical history of dementia, morbid obesity, hypertension, psoriasis, peripheral neuropathy and chronic venous stasis dermatitis who presented to the ER with right lower extremity pain. The patient is only oriented to person and place and cannot provide much history. Less the majority of the HPI and past medical history was obtained via review of electronic medical records. The patient reportedly has had 1 month of worsening right lower extremity swelling and pain. She has chronic venous stasis of bilateral lower extremities but has had multiple infections of the right lower extremity in the past. She received antibiotic therapy with Keflex on 01/09/2022 for 7 days and clindamycin on 02/02/2022. She was referred to be re-established with wound care but she did not make it to the appointment. She has had weeping fluid from the lower extremity. Family denies there being any purulent discharge. The patient's pain is worse with movement or palpation of her lower extremity. She has been afebrile since presentation. The patient had similar symptoms in August and was treated with Keflex with improvement in symptoms. On January 08 of this year the patient was evaluated in the ER in given a dose of Unasyn and had a venous Doppler study which was negative. Denies the patient having any nausea or vomiting. Patient was actively wheezing at the time of my evaluation. She denies feeling short of breath. She denies having cough. She states that she has been vaccinated against COVID with her having her initial series completed in June 2021. It is unclear if she has had a COVID vaccine booster. In the ER COVID was tested due to bed placement and the patient was found to be COVID positive. Patient does have a history of hyperparathyroidism and her chlorthalidone was discontinued during her last hospitalization. For some reason her chlorthalidone is back on her home med rec. Today her calcium is normal. Patient was noted to have acute kidney injury under labs from the ER. The patient states that she has been taking ibuprofen at home to treat her pain. Review of Systems Review of Systems: 12 systems were reviewed with pertinent positives and negatives per HPI. Except as documented in the HPI, all other systems were reviewed and are negative. [facility] Past Medical History Medical History (Updated 02/17/22 @ 02:17 by Savannah Mae DO) Anemia Chronic venous stasis CVA (cerebral vascular accident) Old CVA noted on CT scan from April 2019 Dementia Essential hypertension GERD (gastroesophageal reflux disease) Hyperparathyroidism Lower extremity edema Osteoporosis Peripheral neuropathy Psoriasis Vitamin D deficiency Surgical History Surgical History (Updated 02/16/22 @ 22:50 by Savannah Mae DO) History of section, classical History of colonoscopy with polypectomy History of right hip replacement (04/2019) History of tonsillectomy Family History Family History (Updated 02/16/22 @ 22:51 by Savannah Mae DO) Father Emphysema lung Mother Cancer Hypertension Diabetes mellitus Social History Social History Social History: She lives with daughter who is her only child. She is single and is disabled. Patient is a former smoker who quit smoking in 2018. She used to drink a couple of alcoholic beverages a week and but has not done so in many years. She denies illicit substance use. Code status: Full code Smoking packs per day: 0.5 Smoking cigarettes per day: 10.0 Years smoked: 40 Smoking pack-years: 20.00 Smoking status: Former smoker Tobacco type: cigarettes Alcohol intake: never Substance use: never Additional living arrangements comments: Lives with Daughter Kirstie Gender identity (if verba
[2022-02-17] MEDS: SODIUM CHLORIDE 0.9% IV 1,000 ML 70 ML IV CONT ×2 (02:53→17:22)
[2022-02-17] MEDS: HYDROmorphone HCL INJ (*CRX) 1 MG/ML SYR 0.5 MG IV PUSH ×2 (02:53→18:30)
--- NOTE | 2022-02-17 03:16 | PC.NURSE ---
The medication list was updated based on information from the patient's daughter (who is the primary caregiver) via phone. If a medication that was discontinued was placed back on the list, it was due to a report from the patient's daughter of ongoing administration. Likewise, if a medication was not present, it is because the patient's daughter denied giving it to her. This information has been readily available and unrestricted.
[2022-02-17] MEDS: ENOXAPARIN 40 MG/0.4 ML SYRINGE SUB-Q (08:32)
[2022-02-17] MEDS: ASPIRIN 81 MG ENTERIC TABLET PO (08:32)
[2022-02-17 08:53] LABS: Hematocrit 31.9 % (37.0-47.0); Hemoglobin 10.8 g/dL (12.0-15.0); Mean Corpuscular HGB Conc 33.9 g/dl (32-36); Mean Corpuscular Hemoglobin 26.5 pg (26-34); Mean Corpuscular Volume 78.2 fl (80-100); Mean Platelet Volume 11.1 fl (7.4-10.4); Platelet Count Result 332 k/mm3 (150-375); Red Blood Count 4.08 M/mm3 (4.2-5.4); Red Cell Distribution Width 13.4 % (11.5-14.5); White Blood Count 12.6 K/mm3 (4.5-10.0)
[2022-02-17 09:02] LABS: Lactic Acid Reflex 0.7 mmol/L (0.7-2.0)
[2022-02-17 09:03] LABS: Cholesterol 103 mg/dL (0-200); HDL Direct 39 mg/dL; Triglycerides 48 mg/dL (<150)
[2022-02-17] MEDS: ALBUTEROL SULFATE NEB 2.5 MG/0.5 ML INH INHALATION ×3 (09:17→21:05)
[2022-02-17] MEDS: IPRATROPIUM BR 0.02% INH SOLN 0.5 MG/2.5 ML VIAL INHALATION ×3 (09:17→21:05)
[2022-02-17 09:28] LABS: Alanine Aminotransferase 23 U/L (6-35); Albumin Level 3.4 g/dL (3.5-5.1); Alkaline Phosphatase 109 U/L (38-126); Anion Gap 3 mmol/L (8-16); Aspartate Amino Transferase 29 U/L (14-36); Bilirubin,Total 0.9 mg/dL (0.2-1.3); Blood Urea Nitrogen 19 mg/dL (7-17); Calcium 9.8 mg/dL (8.4-10.2); Carbon Dioxide 31 mmol/L (22-30); Chloride 106 mmol/L (98-107); Estimated CRCL calculation 48 ml/min; Estimated Glomerular Filt Rate 50; Glucose 115 mg/dL (65-110); Magnesium 2.2 mg/dL (1.6-2.3); Potassium 3.2 mmol/L (3.4-5.0); Sodium 140 mmol/L (137-145)
[2022-02-17] MEDS: POTASSIUM CHLORIDE 20 MEQ TABLET 40 MEQ PO (11:58)
[2022-02-17] MEDS: SILVERGEL (ELTA) 45 ML 1 APPLIC TOPICAL (11:58)
[2022-02-17 12:07] LABS: LDL Cholesterol Direct < 30 mg/dL
--- NOTE | 2022-02-17 14:38 | PCNSR ---
On 02/17/22, the student, Sukh Payan, provided care and completed [facility] documentation on this patient. I have reviewed the student's documentation and agree with the findings.
[2022-02-18] VITALS (12 sets, daily range): BP systolic 151–169; BP diastolic 78–111; PULSE 77–94; RESP 14–24; TEMP 35.8–36.3; O2SAT 93–100
[2022-02-18] MEDS: QUEtiapine FUMARATE 25 MG TABLET PO (00:27)
[2022-02-18] MEDS: HYDROmorphone HCL INJ (*CRX) 1 MG/ML SYR 0.5 MG IV PUSH ×2 (00:50→04:45)
--- NOTE | 2022-02-18 02:30 | PCRCNOTE ---
patient just fell asleep. RN asked to not wake her. Will give breathing treatment when patient wakes up.
[2022-02-18 07:28] LABS: Glucose Point of Care 92 mg/dl (65-105)
[2022-02-18] MEDS: SODIUM CHLORIDE 0.9% IV 1,000 ML 70 ML IV CONT ×2 (07:51→22:39)
[2022-02-18] MEDS: ENOXAPARIN 40 MG/0.4 ML SYRINGE SUB-Q (07:59)
[2022-02-18] MEDS: ASPIRIN 81 MG ENTERIC TABLET PO (07:59)
[2022-02-18] MEDS: SILVERGEL (ELTA) 45 ML 1 APPLIC TOPICAL (08:00)
[2022-02-18 10:36] LABS: Alanine Aminotransferase 20 U/L (6-35); Albumin Level 2.8 g/dL (3.5-5.1); Alkaline Phosphatase 89 U/L (38-126); Anion Gap 3 mmol/L (8-16); Aspartate Amino Transferase 27 U/L (14-36); Bilirubin,Total 0.8 mg/dL (0.2-1.3); Blood Urea Nitrogen 13 mg/dL (7-17); CRP 8.1 mg/dL (<1.0); Calcium 9.7 mg/dL (8.4-10.2); Carbon Dioxide 30 mmol/L (22-30); Chloride 106 mmol/L (98-107); Estimated CRCL calculation 52 ml/min; Estimated Glomerular Filt Rate 54; Glucose 86 mg/dL (65-110); Sodium 139 mmol/L (137-145)
[2022-02-18 10:37] LABS: Basophils Absolute Auto 0.1 K/mm3 (0.0-0.1); Basophils Percent Auto 0.5 % (0.2-1.2); Eosinophils Absolute Auto 0.3 K/mm3 (0-0.3); Eosinophils Percent Auto 2.9 % (0-4.4); Hemoglobin 10.4 g/dL (12.0-15.0); Immature Granulocyte Absolute 0.04 K/mm3 (0.00-0.031); Immature Granulocyte Percent A 0.4 % (0-0.5); Lymphocytes Absolute Auto 1.77 K/mm3 (0.9-3.2); Lymphocytes Percent Auto 16.9 % (18.3-44.2); Mean Corpuscular HGB Conc 34.7 g/dl (32-36); Mean Corpuscular Hemoglobin 26.6 pg (26-34); Mean Corpuscular Volume 76.7 fl (80-100); Mean Platelet Volume 10.9 fl (7.4-10.4); Monocytes Absolute Auto 1.1 K/mm3 (0.1-0.6); Monocytes Percent Auto 10.6 % (2.6-8.5); Neutrophils Absolute Auto 7.2 K/mm3 (1.3-6.7); Neutrophils Percent Auto 68.7 % (45.5-73.1); Platelet Count Result 300 k/mm3 (150-375); Red Blood Count 3.91 M/mm3 (4.2-5.4); Red Cell Distribution Width 13.5 % (11.5-14.5); White Blood Count 10.5 K/mm3 (4.5-10.0)
[2022-02-18 10:48] LABS: Procalcitonin 0.2 ng/mL
--- NOTE | 2022-02-18 12:13 | PM.IMPN ---
Progress Note: A&P Assessment and Plan (1) Cellulitis of right lower extremity: Code(s): L03.115 - Cellulitis of right lower limb Status: Acute Assessment and Plan: Patient has recurrent cellulitis with associated venous stasis dermatitis. She was treated with Keflex and Clindamycin prevsiously. - antibiotic coverage will be broadened to Zosyn IV Q6 hours. - wound and blood cultures pending. - WBC trending down on current antibiotic regimen. - procalcitonin 0.2 today - CRP 3.6 to 8 today, but may be secondary to +COVID19 (2) Leg wound, right: Qualifiers: Encounter type: initial encounter Qualified Code(s): S81.801A - Unspecified open wound, right lower leg, initial encounter Code(s): S81.801A - Unspecified open wound, right lower leg, initial encounter Status: Acute Assessment and Plan: CTA demonstrated: generalized atherosclerotic disease with multifocal severe bilateral internal iliac and superficial femoral artery stenosis, minimal slow flow in the distal arteries of the right leg but visualization is difficult due to venous contamination there does appear to be minimal three-vessel flow below the level of the ankle. Severe right leg edema and/or cellulitis with superficial fascial involvement but no definitive involvement a deep fascial layers or lytic compartments. Necrotizing infection cannot be excluded by imaging. - However patient's LRINEC score is 1 and no evidence of crepitus, full a or subcutaneous gas on exam. - hemodynamically stable and necrotizing infection less likely. - Continue antibiotics as above. - During her last hospitalization the patient grew out group B strep from her wound. Final cultures still pending. - Wound Care consulted and recommend silver gel and dry dressing. (3) Chronic venous stasis: Code(s): I87.8 - Other specified disorders of veins Status: Acute Assessment and Plan: - Elevate extremities and control of edema. - wound care and antibiotics as above. (4) Acute kidney injury: Code(s): N17.9 - Acute kidney failure, unspecified Status: Acute Assessment and Plan: BUN 26, creatinine 1.3, and GFR 50 on admission; baseline creatinine 0.8 and GFR >60. likely due to a combination of ibuprofen, chlorthalidone and losartan. - ibuprofen and chlorthalidone held. - resume losartan today and half dose due to hypertension. - Continue gentle IV hydration and trend BMP daily until returns to baseline. - Improving. (5) Acute hypokalemia: Code(s): E87.6 - Hypokalemia Status: Acute Assessment and Plan: K 3.0. Chlorothalidone being held. - Losartan resumed. - Give 40 mEQ PO x1 today, then start 20 mEQ PO daily. - repeat BMP tomorrow. Magnesium level stable. (6) Peripheral vascular disease of extremity: Code(s): I73.9 - Peripheral vascular disease, unspecified Status: Acute Assessment and Plan: - Doppler pedal pulses Qshift. - triglycerides 48, LDL <30, HDL 39. - Patient would likely benefit from evaluation by vascular Service as outpatient (7) SARS-CoV-2 positive: Code(s): U07.1 - COVID-19 Status: Acute Assessment and Plan: Positive COVID19 PCR. - patient is not hypoxic or wheezing noted. - Hold Remdesivir and Dexamethasone since no supplemental O2 required. - Patient reports COVID19 series completed and possible booster vaccine x1. - Continue PRN nebs for shortness of breath. Plan CODE STATUS: FULL CODE Disposition: home with possible home health. Additional Plan PT/OT consulted. Time Spent With Patient Time with patient: 15 - 25 minutes Subjective Date/time seen: 02/18/22 12:13 Patient is a 66 yo female with medical history of dementia, chronic venous insufficiency, recurrent cellulitis, hypertension, and stroke. She presented to the ED for evaluation of right leg pain that was concerning
[2022-02-18] MEDS: POTASSIUM CHLORIDE 20 MEQ PACKET (FOR LIQUID) 40 MEQ PO (12:28)
[2022-02-18] MEDS: ALBUTEROL SULFATE NEB 2.5 MG/0.5 ML INH INHALATION ×2 (13:44→20:58)
[2022-02-18] MEDS: IPRATROPIUM BR 0.02% INH SOLN 0.5 MG/2.5 ML VIAL INHALATION ×2 (13:44→20:58)
--- NOTE | 2022-02-18 14:09 | PCCCNOTE ---
On 02/18/22, the student, Naomie Dodd, provided care and completed [facility] documentation on this patient. I have reviewed the student's documentation and agree with the findings.
[2022-02-19] VITALS (13 sets, daily range): BP systolic 148–182; BP diastolic 74–96; PULSE 68–94; RESP 15–20; TEMP 36.1–37.3; O2SAT 94–100
[2022-02-19] MEDS: HYDROmorphone HCL INJ (*CRX) 1 MG/ML SYR 0.5 MG IV PUSH ×3 (00:50→18:40)
[2022-02-19 06:20] LABS: Hematocrit 30.2 % (37.0-47.0); Hemoglobin 10.5 g/dL (12.0-15.0); Mean Corpuscular HGB Conc 34.8 g/dl (32-36); Mean Corpuscular Hemoglobin 26.9 pg (26-34); Mean Corpuscular Volume 77.2 fl (80-100); Mean Platelet Volume 10.6 fl (7.4-10.4); Platelet Count Result 303 k/mm3 (150-375); Red Blood Count 3.91 M/mm3 (4.2-5.4); Red Cell Distribution Width 13.4 % (11.5-14.5); White Blood Count 10.1 K/mm3 (4.5-10.0)
[2022-02-19 06:46] LABS: Anion Gap 3 mmol/L (8-16); Blood Urea Nitrogen 11 mg/dL (7-17); Calcium 9.7 mg/dL (8.4-10.2); Carbon Dioxide 30 mmol/L (22-30); Chloride 104 mmol/L (98-107); Estimated CRCL calculation 56 ml/min; Estimated Glomerular Filt Rate 60; Glucose 85 mg/dL (65-110); Potassium 3.2 mmol/L (3.4-5.0); Sodium 137 mmol/L (137-145)
[2022-02-19] MEDS: ALBUTEROL SULFATE NEB 2.5 MG/0.5 ML INH INHALATION ×2 (07:29→20:34)
[2022-02-19] MEDS: IPRATROPIUM BR 0.02% INH SOLN 0.5 MG/2.5 ML VIAL INHALATION ×2 (07:30→20:34)
--- NOTE | 2022-02-19 10:01 | PM.IMPN ---
Progress Note: A&P Assessment and Plan (1) Cellulitis of right lower extremity: Code(s): L03.115 - Cellulitis of right lower limb Status: Acute Assessment and Plan: Patient has recurrent cellulitis with associated venous stasis dermatitis. She was treated with Keflex and Clindamycin prevsiously. - Patient received Zosyn IV Q6 hours 02/17-02/19. Transitioned to Levaquin 750 mg PO daily x5 days (total 7-day course) on 02/19/22 - wound shows Gram negative bacilli (many)/Gram positive cocci/Group B strep and blood cultures negative to date. - WBC trending down on current antibiotic regimen. - procalcitonin 0.2 - CRP 3.6 to 8, but may be secondary to +COVID19 (2) Leg wound, right: Qualifiers: Encounter type: initial encounter Qualified Code(s): S81.801A - Unspecified open wound, right lower leg, initial encounter Code(s): S81.801A - Unspecified open wound, right lower leg, initial encounter Status: Acute Assessment and Plan: CTA demonstrated: generalized atherosclerotic disease with multifocal severe bilateral internal iliac and superficial femoral artery stenosis, minimal slow flow in the distal arteries of the right leg but visualization is difficult due to venous contamination there does appear to be minimal three-vessel flow below the level of the ankle. Severe right leg edema and/or cellulitis with superficial fascial involvement but no definitive involvement a deep fascial layers or lytic compartments. Necrotizing infection cannot be excluded by imaging. - However patient's LRINEC score is 1 and no evidence of crepitus, full a or subcutaneous gas on exam. - hemodynamically stable and necrotizing infection less likely. - Continue antibiotics as above. - Wound cultures Gram negative bacilli and gram positive cocci as above. - Wound Care consulted and recommend silver gel and dry dressing. (3) Chronic venous stasis: Code(s): I87.8 - Other specified disorders of veins Status: Acute Assessment and Plan: - Elevate extremities and shaylee wrap for control of edema. - wound care and antibiotics as above. (4) Acute kidney injury: Code(s): N17.9 - Acute kidney failure, unspecified Status: Acute Assessment and Plan: BUN 26, creatinine 1.3, and GFR 50 on admission; baseline creatinine 0.8 and GFR >60. likely due to a combination of ibuprofen, chlorthalidone and losartan. - Hold NSAIDs - Improved renal function. BUN 11, creatinine 1.1, GFR 60. - Saline lock IV fluids. - Chlorthalidone resumed. - Repeat BMP tomorrow. (5) Acute hypokalemia: Code(s): E87.6 - Hypokalemia Status: Acute Assessment and Plan: K 3.2 today, was 2.9 on admission - Losartan resumed. - Give 40 mEQ PO daily on 02/17 and 02/18 - Increase to 40 mEQ BID as chlorthalidone is being resumed. - repeat BMP tomorrow. (6) Peripheral vascular disease of extremity: Code(s): I73.9 - Peripheral vascular disease, unspecified Status: Acute Assessment and Plan: - Doppler pedal pulses Qshift. - triglycerides 48, LDL <30, HDL 39. - Patient would likely benefit from evaluation by vascular Service as outpatient (7) SARS-CoV-2 positive: Code(s): U07.1 - COVID-19 Status: Acute Assessment and Plan: Positive COVID19 PCR. - patient is not hypoxic. Mild wheezing on exam. - Hold Remdesivir and Dexamethasone since no supplemental O2 required. - Patient reports COVID19 series completed and possible booster vaccine x1. - Continue PRN nebs for shortness of breath. - Repeat CXR today. Plan CODE STATUS: FULL CODE Disposition: home with possible home health for wound care. Anticipated discharge tomorrow if continues to improve. Time Spent With Patient Time with patient: 25 - 35 minutes Subjective Date/time seen: 02/19/22 10:01 Interval history: Patient is a 66 yo female with medical his
[2022-02-19] MEDS: ASPIRIN 81 MG ENTERIC TABLET PO (11:02)
[2022-02-19] MEDS: ENOXAPARIN 40 MG/0.4 ML SYRINGE SUB-Q (11:02)
[2022-02-19] MEDS: levoFLOXacin 750 MG TABLET PO (11:02)
[2022-02-19] MEDS: CHLORTHALIDONE 25 MG TABLET PO (11:02)
[2022-02-19] MEDS: LOSARTAN POTASSIUM 25 MG TABLET PO (11:02)
[2022-02-19] MEDS: POTASSIUM CHLORIDE 20 MEQ PACKET (FOR LIQUID) 40 MEQ PO ×2 (11:02→18:23)
[2022-02-19] MEDS: SILVERGEL (ELTA) 45 ML 1 APPLIC TOPICAL (11:11)
[2022-02-20] VITALS (15 sets, daily range): BP systolic 113–179; BP diastolic 73–86; PULSE 58–76; RESP 16–20; TEMP 36.1–36.9; O2SAT 97–100
[2022-02-20] MEDS: HYDROmorphone HCL INJ (*CRX) 1 MG/ML SYR 0.5 MG IV PUSH ×4 (00:39→16:15)
[2022-02-20 06:42] LABS: Basophils Percent Auto 0.4 % (0.2-1.2); Eosinophils Absolute Auto 0.3 K/mm3 (0-0.3); Eosinophils Percent Auto 2.9 % (0-4.4); Hematocrit 32.6 % (37.0-47.0); Hemoglobin 10.9 g/dL (12.0-15.0); Immature Granulocyte Absolute 0.04 K/mm3 (0.00-0.031); Immature Granulocyte Percent A 0.4 % (0-0.5); Lymphocytes Absolute Auto 2.19 K/mm3 (0.9-3.2); Lymphocytes Percent Auto 23.2 % (18.3-44.2); Mean Corpuscular HGB Conc 33.4 g/dl (32-36); Mean Corpuscular Hemoglobin 26.3 pg (26-34); Mean Corpuscular Volume 78.6 fl (80-100); Monocytes Absolute Auto 0.9 K/mm3 (0.1-0.6); Monocytes Percent Auto 9.7 % (2.6-8.5); Neutrophils Percent Auto 63.4 % (45.5-73.1); Platelet Count Result 306 k/mm3 (150-375); Red Blood Count 4.15 M/mm3 (4.2-5.4); Red Cell Distribution Width 13.3 % (11.5-14.5); White Blood Count 9.5 K/mm3 (4.5-10.0)
[2022-02-20 06:49] LABS: Anion Gap 3 mmol/L (8-16); Blood Urea Nitrogen 12 mg/dL (7-17); Carbon Dioxide 30 mmol/L (22-30); Chloride 103 mmol/L (98-107); Estimated CRCL calculation 56 ml/min; Estimated Glomerular Filt Rate 60; Glucose 90 mg/dL (65-110); Potassium 3.4 mmol/L (3.4-5.0); Sodium 136 mmol/L (137-145)
[2022-02-20] MEDS: IPRATROPIUM BR 0.02% INH SOLN 0.5 MG/2.5 ML VIAL INHALATION ×3 (07:59→20:36)
[2022-02-20] MEDS: ALBUTEROL SULFATE NEB 2.5 MG/0.5 ML INH INHALATION ×3 (07:59→20:36)
[2022-02-20] MEDS: CHLORTHALIDONE 25 MG TABLET PO (10:49)
[2022-02-20] MEDS: ASPIRIN 81 MG ENTERIC TABLET PO (10:49)
[2022-02-20] MEDS: POTASSIUM CHLORIDE 20 MEQ PACKET (FOR LIQUID) 40 MEQ PO (10:49)
[2022-02-20] MEDS: levoFLOXacin 750 MG TABLET PO (10:50)
[2022-02-20] MEDS: ENOXAPARIN 40 MG/0.4 ML SYRINGE SUB-Q (10:50)
--- NOTE | 2022-02-20 12:45 | PM.IMPN ---
Progress Note: A&P Assessment and Plan (1) Cellulitis of right lower extremity: Code(s): L03.115 - Cellulitis of right lower limb Status: Acute Assessment and Plan: Patient has recurrent cellulitis with associated venous stasis dermatitis. She was treated with Keflex and Clindamycin prevsiously. - Patient received Zosyn IV Q6 hours 02/17-02/19. Transitioned to Levaquin 750 mg PO daily x5 days (total 7-day course) on 02/19/22. Antibiotic day 4. - wound shows heavy Group B strep and blood cultures negative to date. - WBC trended to normal on current antibiotic regimen. - procalcitonin 0.2 - CRP 3.6 to 8, but may be secondary to +COVID19 (2) Leg wound, right: Qualifiers: Encounter type: initial encounter Qualified Code(s): S81.801A - Unspecified open wound, right lower leg, initial encounter Code(s): S81.801A - Unspecified open wound, right lower leg, initial encounter Status: Acute Assessment and Plan: CTA demonstrated: generalized atherosclerotic disease with multifocal severe bilateral internal iliac and superficial femoral artery stenosis, minimal slow flow in the distal arteries of the right leg but visualization is difficult due to venous contamination there does appear to be minimal three-vessel flow below the level of the ankle. Severe right leg edema and/or cellulitis with superficial fascial involvement but no definitive involvement a deep fascial layers or lytic compartments. Necrotizing infection cannot be excluded by imaging. - However patient's LRINEC score is 1 and no evidence of crepitus, full a or subcutaneous gas on exam. - hemodynamically stable and necrotizing infection less likely. - Continue antibiotics as above. - Wound cultures as above. Wound observed and appears improved. - Wound Care consulted and recommend silver gel and dry dressing. Continue daily dressing changes. (3) Chronic venous stasis: Code(s): I87.8 - Other specified disorders of veins Status: Acute Assessment and Plan: - Elevate extremities and shaylee wrap for control of edema. - wound care and antibiotics as above. (4) Acute kidney injury: Code(s): N17.9 - Acute kidney failure, unspecified Status: Acute Assessment and Plan: BUN 26, creatinine 1.3, and GFR 50 on admission; baseline creatinine 0.8 and GFR >60. likely due to a combination of ibuprofen, chlorthalidone and losartan. - Hold NSAIDs - renal function stable off IVF. Monitor. - IV fluids stopped 02/19 - Chlorthalidone resumed 02/19. Losartan increased to home dose. - Repeat BMP in am. (5) Acute hypokalemia: Code(s): E87.6 - Hypokalemia Status: Acute Assessment and Plan: K 3.4 today, was 2.9 on admission - Losartan and chlorthalidone. - Give 40 mEQ PO daily on 02/17 and 02/18 - Continue 40 mEQ BID. - repeat BMP in am. (6) Peripheral vascular disease of extremity: Code(s): I73.9 - Peripheral vascular disease, unspecified Status: Acute Assessment and Plan: - Doppler pedal pulses Qshift. - triglycerides 48, LDL <30, HDL 39. - Patient would likely benefit from evaluation by vascular Service as outpatient (7) SARS-CoV-2 positive: Code(s): U07.1 - COVID-19 Status: Acute Assessment and Plan: Positive COVID19 PCR. - Patient is not hypoxic. No wheezing on exam. - Hold Remdesivir and Dexamethasone since no supplemental O2 required. - Patient reports COVID19 series completed and possible booster vaccine x1. - Continue PRN nebs for shortness of breath. - 02/19 CXR right lung base reticular opacities atelectasis versus atypical pneumonia. Patient is on Levaquin for cellulitis, which would cover pneumonia if present. Plan CODE STATUS: FULL CODE Disposition: Family is wanting SNF placement. Time Spent With Patient Time with patient: 15 - 25 minutes Subjective Date/time seen: 02/20/22
[2022-02-20] MEDS: SILVERGEL (ELTA) 45 ML 1 APPLIC TOPICAL (16:20)
[2022-02-21] VITALS (11 sets, daily range): BP systolic 136–181; BP diastolic 63–92; PULSE 57–93; RESP 16–20; TEMP 36.3–36.9; O2SAT 97–100
[2022-02-21] MEDS: HYDROmorphone HCL INJ (*CRX) 1 MG/ML SYR 0.5 MG IV PUSH ×5 (00:29→23:22)
[2022-02-21] MEDS: ACETAMINOPHEN 325 MG TABLET 650 MG PO ×4 (00:32→16:15)
[2022-02-21] MEDS: IPRATROPIUM BR 0.02% INH SOLN 0.5 MG/2.5 ML VIAL INHALATION ×3 (02:10→20:07)
[2022-02-21] MEDS: ALBUTEROL SULFATE NEB 2.5 MG/0.5 ML INH INHALATION ×3 (02:12→19:49)
[2022-02-21 06:38] LABS: Anion Gap 6 mmol/L (8-16); Blood Urea Nitrogen 12 mg/dL (7-17); Carbon Dioxide 30 mmol/L (22-30); Chloride 101 mmol/L (98-107); Estimated CRCL calculation 61 ml/min; Estimated Glomerular Filt Rate > 60; Glucose 90 mg/dL (65-110); Sodium 137 mmol/L (137-145)
[2022-02-21] MEDS: levoFLOXacin 750 MG TABLET PO (08:01)
[2022-02-21] MEDS: POTASSIUM CHLORIDE 20 MEQ PACKET (FOR LIQUID) 40 MEQ PO (08:01)
[2022-02-21] MEDS: ENOXAPARIN 40 MG/0.4 ML SYRINGE SUB-Q (08:01)
[2022-02-21] MEDS: ASPIRIN 81 MG ENTERIC TABLET PO (08:01)
[2022-02-21] MEDS: SILVERGEL (ELTA) 45 ML 1 APPLIC TOPICAL (08:02)
[2022-02-21] MEDS: LOSARTAN POTASSIUM 50 MG TABLET PO ×2 (08:02→09:11)
[2022-02-21] MEDS: CHLORTHALIDONE 25 MG TABLET PO (09:01)
[2022-02-21] MEDS: ONDANSETRON INJ 4 MG/2 ML VIAL IV PUSH (09:39)
[2022-02-21] MEDS: POTASSIUM CHLORIDE 20 MEQ PACKET (FOR LIQUID) PO (16:15)
--- NOTE | 2022-02-21 16:59 | PM.IMPN ---
Progress Note: A&P Assessment and Plan (1) Cellulitis of right lower extremity: Code(s): L03.115 - Cellulitis of right lower limb Status: Acute Assessment and Plan: Patient has recurrent cellulitis with associated venous stasis dermatitis. She was treated with Keflex and Clindamycin prevsiously. - Patient received Zosyn IV Q6 hours 02/17-02/19. Transitioned to Levaquin 750 mg PO daily x5 days (total 7-day course) on 02/19/22. Antibiotic day 5. - wound shows heavy Group B strep and blood cultures negative to date. - WBC trended to normal on current antibiotic regimen. - procalcitonin 0.2 - CRP 3.6 to 8, but may be secondary to +COVID19 (2) Leg wound, right: Qualifiers: Encounter type: initial encounter Qualified Code(s): S81.801A - Unspecified open wound, right lower leg, initial encounter Code(s): S81.801A - Unspecified open wound, right lower leg, initial encounter Status: Acute Assessment and Plan: CTA demonstrated: generalized atherosclerotic disease with multifocal severe bilateral internal iliac and superficial femoral artery stenosis, minimal slow flow in the distal arteries of the right leg but visualization is difficult due to venous contamination there does appear to be minimal three-vessel flow below the level of the ankle. Severe right leg edema and/or cellulitis with superficial fascial involvement but no definitive involvement a deep fascial layers or lytic compartments. Necrotizing infection cannot be excluded by imaging. - However patient's LRINEC score is 1 and no evidence of crepitus, full a or subcutaneous gas on exam. - hemodynamically stable and necrotizing infection less likely. - Continue antibiotics as above. - Wound cultures as above. Wound observed and appears improved. - Wound Care consulted and recommend silver gel and dry dressing. Continue daily dressing changes. (3) Chronic venous stasis: Code(s): I87.8 - Other specified disorders of veins Status: Acute Assessment and Plan: - Elevate extremities and shaylee wrap for control of edema. - wound care and antibiotics as above. (4) Acute kidney injury: Code(s): N17.9 - Acute kidney failure, unspecified Status: Acute Assessment and Plan: BUN 26, creatinine 1.3, and GFR 50 on admission; baseline creatinine 0.8 and GFR >60. likely due to a combination of ibuprofen, chlorthalidone and losartan. - Hold NSAIDs - renal function resumed to normal off IVF. Monitor. - IV fluids stopped 02/19 - Chlorthalidone resumed 02/19. Losartan increased 100 mg daily. - Repeat BMP in am. (5) Acute hypokalemia: Code(s): E87.6 - Hypokalemia Status: Acute Assessment and Plan: K 3.4 today, was 2.9 on admission - Losartan and chlorthalidone. - Give 40 mEQ PO daily on 02/17 and 02/18 - Change to KCL 20 mEQ BID 02/21 d/t increased losartan. - repeat BMP in am. (6) Peripheral vascular disease of extremity: Code(s): I73.9 - Peripheral vascular disease, unspecified Status: Acute Assessment and Plan: - Doppler pedal pulses Qshift. - triglycerides 48, LDL <30, HDL 39. - Patient would likely benefit from evaluation by Vascular Service as outpatient (7) SARS-CoV-2 positive: Code(s): U07.1 - COVID-19 Status: Acute Assessment and Plan: Positive COVID19 PCR. - Patient is not hypoxic. No wheezing on exam. - Hold Remdesivir and Dexamethasone since no supplemental O2 required. - Patient reports COVID19 series completed and possible booster vaccine x1. - Continue PRN nebs for shortness of breath. - 02/19 CXR right lung base reticular opacities atelectasis versus atypical pneumonia. Patient is on Levaquin for cellulitis, which would cover pneumonia if present. Plan CODE STATUS: FULL CODE Disposition: Pending SNF placement. Time Spent With Patient Time with patient: 15 - 25 minutes Subjecti
[2022-02-21] MEDS: HYDROcodone/acetaminophen (*CRX) 5-325 MG TABLET 1 TAB PO (21:15)
[2022-02-22] VITALS (20 sets, daily range): BP systolic 120–159; BP diastolic 55–74; PULSE 53–93; RESP 14–20; TEMP 35.8–36.6; O2SAT 93–100
[2022-02-22] MEDS: ALBUTEROL SULFATE NEB 2.5 MG/0.5 ML INH INHALATION ×4 (01:29→20:20)
[2022-02-22] MEDS: IPRATROPIUM BR 0.02% INH SOLN 0.5 MG/2.5 ML VIAL INHALATION ×4 (01:29→20:20)
[2022-02-22] MEDS: HYDROcodone/acetaminophen (*CRX) 5-325 MG TABLET 1 TAB PO ×4 (04:30→23:22)
[2022-02-22 09:18] LABS: Hematocrit 32.8 % (37.0-47.0); Hemoglobin 11.1 g/dL (12.0-15.0); Mean Corpuscular HGB Conc 33.8 g/dl (32-36); Mean Corpuscular Hemoglobin 26.7 pg (26-34); Mean Corpuscular Volume 78.8 fl (80-100); Mean Platelet Volume 10.8 fl (7.4-10.4); Platelet Count Result 327 k/mm3 (150-375); Red Blood Count 4.16 M/mm3 (4.2-5.4); Red Cell Distribution Width 13.8 % (11.5-14.5); White Blood Count 8.6 K/mm3 (4.5-10.0)
[2022-02-22 09:37] LABS: Anion Gap 8 mmol/L (8-16); Blood Urea Nitrogen 15 mg/dL (7-17); CRP 1.9 mg/dL (<1.0); Calcium 9.7 mg/dL (8.4-10.2); Carbon Dioxide 26 mmol/L (22-30); Chloride 103 mmol/L (98-107); Estimated CRCL calculation 61 ml/min; Estimated Glomerular Filt Rate > 60; Glucose 134 mg/dL (65-110); Potassium 3.6 mmol/L (3.4-5.0); Sodium 137 mmol/L (137-145)
[2022-02-22] MEDS: POTASSIUM CHLORIDE 20 MEQ PACKET (FOR LIQUID) PO (10:06)
[2022-02-22] MEDS: levoFLOXacin 750 MG TABLET PO (10:06)
[2022-02-22] MEDS: ASPIRIN 81 MG ENTERIC TABLET PO (10:06)
[2022-02-22] MEDS: LOSARTAN POTASSIUM 100 MG TABLET PO (10:06)
[2022-02-22] MEDS: CHLORTHALIDONE 25 MG TABLET PO (10:07)
[2022-02-22] MEDS: ENOXAPARIN 40 MG/0.4 ML SYRINGE SUB-Q (10:07)
--- NOTE | 2022-02-22 11:09 | PCNFU ---
Nutrition Follow-Up Complete: Inadequate oral intake related to appetite as evidenced by a 10lb wt reduction from pts recorded wt on 08/27/2021. Goal: Eating 75% or more of meals and Ensure Compact BID (220kcal, 9gm pro each). Pt is meeting goal. Continue with same goal. Pt current nutrition is Regular plus Ensure compact BID. Nutrition recommendation: Continue with current plan of care. Last recorded weight is 113 kg - stable at this time. Bowel Motility: +BM 02/22 Labs Reviewed: Hgb:11.1, HCT:32.8, glu: 134 Meds Noted: lovenox, zofran Skin: WNL Additional Notes: Pt continues on a regular diet. Intake 75-100% of most meals plus Ensure compact. Agree with diet orders. Monitor changes in labs, oral intake, and wt every 7 days.
--- NOTE | 2022-02-22 11:34 | PM.IMPN ---
Progress Note: A&P Assessment and Plan (1) Cellulitis of right lower extremity: Code(s): L03.115 - Cellulitis of right lower limb Status: Acute Assessment and Plan: Patient has recurrent cellulitis with associated venous stasis dermatitis. She was treated with Keflex and Clindamycin prevsiously. - Patient received Zosyn IV Q6 hours 02/17-02/19. Transitioned to Levaquin 750 mg PO daily x5 days (total 7-day course) on 02/19/22. Antibiotic day 6. Stop 02/23/22. - wound shows heavy Group B strep and blood cultures negative to date. - WBC trended to normal on current antibiotic regimen. - procalcitonin 0.2 - CRP 3.6 to 8 to 1.9. Improving. (2) Leg wound, right: Qualifiers: Encounter type: initial encounter Qualified Code(s): S81.801A - Unspecified open wound, right lower leg, initial encounter Code(s): S81.801A - Unspecified open wound, right lower leg, initial encounter Status: Acute Assessment and Plan: CTA demonstrated: generalized atherosclerotic disease with multifocal severe bilateral internal iliac and superficial femoral artery stenosis, minimal slow flow in the distal arteries of the right leg but visualization is difficult due to venous contamination there does appear to be minimal three-vessel flow below the level of the ankle. Severe right leg edema and/or cellulitis with superficial fascial involvement but no definitive involvement a deep fascial layers or lytic compartments. Necrotizing infection cannot be excluded by imaging. - However patient's LRINEC score is 1 and no evidence of crepitus, full a or subcutaneous gas on exam. - hemodynamically stable and necrotizing infection less likely. - Continue antibiotics as above. - Wound cultures as above. Wound observed and appears improved. - Wound Care consulted and recommend silver gel and dry dressing. Continue daily dressing changes. (3) Chronic venous stasis: Code(s): I87.8 - Other specified disorders of veins Status: Acute Assessment and Plan: - Elevate extremities and shaylee wrap for control of edema. - wound care and antibiotics as above. (4) Acute kidney injury: Code(s): N17.9 - Acute kidney failure, unspecified Status: Acute Assessment and Plan: BUN 26, creatinine 1.3, and GFR 50 on admission; baseline creatinine 0.8 and GFR >60. likely due to a combination of ibuprofen, chlorthalidone and losartan. - Hold NSAIDs - renal function resumed to normal off IVF. Monitor. - IV fluids stopped 02/19 - Chlorthalidone resumed 02/19. Losartan increased 100 mg daily. - 02/22 Resolved. (5) Acute hypokalemia: Code(s): E87.6 - Hypokalemia Status: Acute Assessment and Plan: K 3.4 today, was 2.9 on admission - Losartan and chlorthalidone. - Give 40 mEQ PO daily on 02/17 and 02/18 - Change to KCL 20 mEQ BID 02/21 d/t increased losartan. - 02/22 K 3.6, increase to 40 mEQ BID. Repeat BMP in 2 days. (6) Peripheral vascular disease of extremity: Code(s): I73.9 - Peripheral vascular disease, unspecified Status: Acute Assessment and Plan: - Doppler pedal pulses Qshift. - triglycerides 48, LDL <30, HDL 39. - Patient would likely benefit from evaluation by Vascular Service as outpatient (7) SARS-CoV-2 positive: Code(s): U07.1 - COVID-19 Status: Acute Assessment and Plan: Positive COVID19 PCR. - Patient is not hypoxic. No wheezing on exam. - Hold Remdesivir and Dexamethasone since no supplemental O2 required. - Patient reports COVID19 series completed and possible booster vaccine x1. - Continue PRN nebs for shortness of breath. - 02/19 CXR right lung base reticular opacities atelectasis versus atypical pneumonia. Patient is on Levaquin for cellulitis, which would cover pneumonia if present. - 02/22 Stable. Plan CODE STATUS: FULL CODE Disposition: Pending SNF placement and authorization. Ti
[2022-02-22] MEDS: SILVERGEL (ELTA) 45 ML 1 APPLIC TOPICAL (12:06)
[2022-02-22] MEDS: POTASSIUM CHLORIDE 20 MEQ PACKET (FOR LIQUID) 40 MEQ PO (16:58)
[2022-02-23] VITALS (9 sets, daily range): BP systolic 121–152; BP diastolic 66–88; PULSE 61–102; RESP 18–20; TEMP 35.7–36.4; O2SAT 94–99
[2022-02-23] MEDS: IPRATROPIUM BR 0.02% INH SOLN 0.5 MG/2.5 ML VIAL INHALATION ×2 (02:13→14:55)
[2022-02-23] MEDS: ALBUTEROL SULFATE NEB 2.5 MG/0.5 ML INH INHALATION ×2 (02:13→14:55)
[2022-02-23] MEDS: HYDROmorphone HCL INJ (*CRX) 1 MG/ML SYR 0.5 MG IV PUSH ×3 (02:29→13:04)
[2022-02-23 06:49] LABS: Potassium 3.7 mmol/L (3.4-5.0)
--- NOTE | 2022-02-23 08:13 | PCRCNOTE ---
Pt refused 0800 neb tx, Nurse notified.
--- NOTE | 2022-02-23 08:38 | PM.DS ---
DS: Admitting Diagnosis Discharge Date 02/23/2022 1458 Admitting Diagnosis RLE cellulitis RLE wound GALLO Hypokalemia Peripheral artery disease COVID19 positive Chronic venous status dermatitis DS: Discharge Diagnosis Discharge Diagnosis (1) Cellulitis of right lower extremity: Code(s): L03.115 - Cellulitis of right lower limb Status: Acute Assessment and Plan: Patient has recurrent cellulitis with associated venous stasis dermatitis. She was treated with Keflex and Clindamycin previously. - Patient received IV Unasyn in ED 02/16/22. Zosyn IV Q6 hours 02/17-02/19. Transitioned to Levaquin 750 mg PO daily x5 days (total 7-day course) from 02/19/22-02/23/22. - wound culture from admission showed heavy Group B strep and blood cultures were negative x5 days. - WBC trended to normal on current antibiotic regimen. - procalcitonin 0.2 - CRP 3.6 to 8 to 1.9. - RLE cellulitis and infected wound improved with antibiotic therapy and daily silver gel dressing changes. (2) Leg wound, right: Qualifiers: Encounter type: initial encounter Qualified Code(s): S81.801A - Unspecified open wound, right lower leg, initial encounter Code(s): S81.801A - Unspecified open wound, right lower leg, initial encounter Status: Acute Assessment and Plan: CTA demonstrated: generalized atherosclerotic disease with multifocal severe bilateral internal iliac and superficial femoral artery stenosis, minimal slow flow in the distal arteries of the right leg but visualization is difficult due to venous contamination there does appear to be minimal three-vessel flow below the level of the ankle. Severe right leg edema and/or cellulitis with superficial fascial involvement but no definitive involvement a deep fascial layers or lytic compartments. Necrotizing infection cannot be excluded by imaging. - However patient's LRINEC score is 1 and no evidence of crepitus, full a or subcutaneous gas on exam. - Patient was hemodynamically stable and necrotizing infection was less likely. - She was continued antibiotics as above for total 7-days. - Wound culture showed Group-B strep as described above. Wound appeared improved with therapy. - Wound Care was consulted and recommend silver gel and dry dressing. Daily dressing changes should be continued upon discharge until wound healed. (3) Chronic venous stasis: Code(s): I87.8 - Other specified disorders of veins Status: Acute Assessment and Plan: - Elevate extremities and shaylee wrap for control of edema. Chlorithalidone 25 mg PO daily was resumed prior to discharge. - wound care and antibiotics as above. - Edema improved with this therapy. (4) Acute kidney injury: Code(s): N17.9 - Acute kidney failure, unspecified Status: Acute Assessment and Plan: BUN 26, creatinine 1.3, and GFR 50 on admission; baseline creatinine 0.8 and GFR >60. likely due to a combination of ibuprofen, chlorthalidone and losartan. NSAIDs were held. Renal function was monitored and showed improvement. IV fluids were discontinued on 02/19/22 when BUN 11, creatinine 1.1, GFR 60. Chlorthalidone was resumed on 02/19 when potassium level was stable. Losartan 25 mg was resumed on 02/19, but increased to 100 mg by 02/22/22 for persistent hypertension SBP>160. Renal function was within normal limits at discharge. (5) Acute hypokalemia: Code(s): E87.6 - Hypokalemia Status: Acute Assessment and Plan: Potassium was 2.9 on admission. Losartan and chlorthalidone were held on admission. She was given 40 mEQ PO daily on 02/17 and 02/18. Chlorthalidone and Losartan were gradually resumed and potassium level was monitored. She was treated with KCl 40 mEQ PO BID and K was 4.0. Dosing was changed to KCL 20 mEQ BID on 02/21 d/t increased losartan. Repeat K was 3.6 and KCl dose was increased to 40 mEQ BID. (6) Peripheral vascular disease of extrem
[2022-02-23] MEDS: ENOXAPARIN 40 MG/0.4 ML SYRINGE SUB-Q (09:48)
[2022-02-23] MEDS: LOSARTAN POTASSIUM 100 MG TABLET PO (09:49)
[2022-02-23] MEDS: levoFLOXacin 750 MG TABLET PO (09:49)
[2022-02-23] MEDS: CHLORTHALIDONE 25 MG TABLET PO (09:49)
[2022-02-23] MEDS: ASPIRIN 81 MG ENTERIC TABLET PO (09:49)
[2022-02-23] MEDS: SILVERGEL (ELTA) 45 ML 1 APPLIC TOPICAL (09:50)
== END 2022-02-23 17:05 | DRG 602 ==
LOC: ANHED 17:42 → ANH3MEDSUR 21:34
PROVIDERS: Internal Medicine; Admitting Provider Internal Medicine; Emergency Provider Emergency Medicine; PCP Family Medicine; Visit Provider Nurse Practitioner Family
DX: L03.115 Cellulitis of right lower limb (principal); U07.1 COVID-19; N17.9 Acute kidney failure, unspecified; Z68.41 Body mass index [BMI] 40.0-44.9, adult; L97.819 Non-pressure chronic ulcer of other part of right lower leg with unspecified severity; I73.9 Peripheral vascular disease, unspecified; I87.2 Venous insufficiency (chronic) (peripheral); E87.6 Hypokalemia; B95.1 Streptococcus, group B, as the cause of diseases classified elsewhere; F03.90 Unspecified dementia, unspecified severity, without behavioral disturbance, psychotic disturbance, mood disturbance, and anxiety; I10 Essential (primary) hypertension; D64.9 Anemia, unspecified; E21.3 Hyperparathyroidism, unspecified; M81.0 Age-related osteoporosis without current pathological fracture; E66.01 Morbid (severe) obesity due to excess calories; L40.9 Psoriasis, unspecified; G62.9 Polyneuropathy, unspecified; Z96.641 Presence of right artificial hip joint; Z79.82 Long term (current) use of aspirin; Z87.891 Personal history of nicotine dependence; Z86.73 Personal history of transient ischemic attack (TIA), and cerebral infarction without residual deficits
CPT/HCPCS: 36415; 71045; 73706; 80048; 80053; 80061; 82948; 83605; 83735; 84132; 84145; 85025; 85027; 85652; 86140; 87040; 87070; 87077; 87205; 94640; 96365; 96375; 96376; 97110; 97116; 97161; 97165; 97530; 99285; A9270; C9803; J0690; J1170; J1650; J2270; J2405; J2543; J7030; Q9967; U0003; U0005

== ENCOUNTER 2022-06-15 16:58 | Observation (INO) | payer MEDICARE, SELFPAY ==
--- NOTE | ~2022-06-15 | XR_ITS ---
EXAMINATION: XR chest 1V portable INDICATION: Inhalation TECHNIQUE: Portable AP chest at 2103 hours COMPARISON: 02/19/2022 FINDINGS: There are minimal airspace opacities of the lower lung zones and right midlung zone. No ple ural effusion or pneumothorax. The cardiomediastinal silhouette is normal. IMPRESSION: 1. Minimal airspace opacities of the lower lung zones and right midlung zone which could reflect atel ectasis versus pneumonia versus pulmonary edema. Reviewed, dictated and finalized at location F. COURSE MECHANIC IMPRESSION: 1. Minimal airspace opacities of the lower lung zones and right midlung zone wh ich could reflect atelectasis versus pneumonia versus pulmonary edema.
--- NOTE | ~2022-06-15 | XR_ITS ---
EXAMINATION: XR knee LT 3V DATE: 06/15/2022 18:46 INDICATION: Left knee pain TECHNIQUE: Three views of the left knee were obtained. COMPARISON: None. FINDINGS: Alignment is normal. No fracture or osteochondral lesion. There is mild tricompartmental os teoarthritis characterized by tiny marginal osteophytes. There is a large knee joint effusion. There is diffuse soft tissue edema of the leg. IMPRESSION: 1. Partially joint effusion without acute osseous abnormality. Reviewed, dictated and finalized at location F. ETING RECRUITER
[2022-06-15 17:12] VITALS: BP 158/84; PULSE 82; RESP 14; TEMP 36.5; O2SAT 100
--- NOTE | 2022-06-15 20:21 | ED.LOWEXIN ---
HPI - Extremity Injury (Lower) General Chief Complaint: Extremity Injury, Lower Stated Complaint: LLE pain Time Seen by Provider: 06/15/22 20:09 History of Present Illness HPI Narrative: 66-year-old female history of hypertension, dementia, chronic venous insufficiency, recurrent RLE cellulitis and chronic knee pain presents to the emergency room for evaluation of left knee pain that began 3 days ago after a fall. Patient is a poor historian and unable to provide any more information. Patient states her knee pain is worse when attempting to ambulate. Related Data Home Medications Medication Instructions Recorded Confirmed aspirin 81 mg tablet 81 mg PO DAILY 06/25/20 02/17/22 ipratropium 0.5 mg-albuterol 3 mg 3 ml inhalation Q4H PRN sob 08/27/21 02/17/22 (2.5 mg base)/3 mL nebulization soln chlorthalidone 1 tablet PO DAILY 02/17/22 02/17/22 Allergies Allergy/AdvReac Type Severity Reaction Status Date / Time No Known Allergies Allergy Verified 01/08/22 17:27 Review of Systems Review of Systems: CONSTITUTIONAL: Denies fever, chills, or sweats. EYES: Denies visual changes, redness, or discharge. ENT: Denies rhinorrhea, congestion, sore throat, or otalgia. CARDIOVASCULAR: Denies chest pain, palpitations, or edema. RESPIRATORY: Denies cough or dyspnea. GASTROINTESTINAL: Denies abdominal pain, nausea, vomiting, or diarrhea. GENITOURINARY: Denies dysuria or hematuria. SKIN: Denies rash or itching. MUSCULOSKELETAL: Reports left knee pain NEUROLOGIC: Denies headache, numbness, dizziness, or weakness. PSYCHIATRIC: Denies anxiety or depression. [facility] Past Medical History Medical History (Updated 06/15/22 @ 21:38 by Jelani Holgiun MD) Anemia Chronic venous stasis CVA (cerebral vascular accident) Old CVA noted on CT scan from April 2019 Dementia Essential hypertension GERD (gastroesophageal reflux disease) Hyperparathyroidism Lower extremity edema Osteoporosis Peripheral neuropathy Psoriasis Vitamin D deficiency Surgical History Surgical History History of section, classical History of colonoscopy with polypectomy History of right hip replacement (04/2019) History of tonsillectomy Family History Family History Father Emphysema lung Mother Cancer Hypertension Diabetes mellitus Social History Social History Social History: She lives with daughter who is her only child. She is single and is disabled. Patient is a former smoker who quit smoking in 2018. She used to drink a couple of alcoholic beverages a week and but has not done so in many years. She denies illicit substance use. Code status: Full code Smoking packs per day: 0.5 Smoking cigarettes per day: 10.0 Years smoked: 40 Smoking pack-years: 20.00 Smoking status: Former smoker Tobacco type: cigarettes Alcohol intake: never Substance use: never Additional living arrangements comments: Lives with Daughter Kirstie Gender identity (if verbalized by the patient): Female Spiritual care concerns: No Exam Narrative: GENERAL: Well-appearing, well-nourished, no physical limitations, and in no acute distress. HEAD: Normocephalic, atraumatic. EYES: Conjunctivae normal, PERRLA and EOMI. CHEST: Clear to auscultation. No respiratory distress. No wheezes rales or rhonchi. HEART: Regular rate and rhythm. No murmur heard. Normal peripheral pulses. EXTREMITIES: left knee: No palpable bony tenderness or abnormality, no soft tissue swelling. No joint laxity. Normal range of motion. Chronic venous stasis changes with dry scaling skin to the toes. Right lower extremity edema to the anterior and lateral surfaces. SKIN: Warm, dry, no rash. No noted wounds NEURO: No focal deficits. Alert and oriented x2. MAEW. CN's II-XI intact
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
[2022-06-15 22:06] LABS: Influenza A QL RT-PCR Negative (Negative); Influenza B QL RT-PCR Negative (Negative); SARS-CoV-2 RNA PCR Negative
[2022-06-15 23:04] VITALS: BP 150/107; PULSE 96; RESP 19; TEMP 36.8; O2SAT 97
[2022-06-15 23:25] VITALS: BP 150/107; PULSE 96; RESP 19; TEMP 36.8; O2SAT 97
[2022-06-15 23:46] VITALS: BMI 43.5
[2022-06-15 23:47] VITALS: BP 170/82; PULSE 98; RESP 18; TEMP 36.3; O2SAT 98
[2022-06-15] MEDS: SODIUM CHLORIDE 0.9% IV 1,000 ML 100 ML IV CONT (23:47)
--- NOTE | 2022-06-15 23:49 | ADMGEN ---
This patient, Rosina Soria, was admitted to Medical Room 347-. Patient/family oriented to hospital policies and general routines including ID bracelet, bed and alarms, visiting hours, pain management, procedures, bathroom and other care routines, personal items, smoking policy, room service/diet, and visiting hours. Information on how to activate the Rapid Response Team has been discussed. Patient/Family are encouraged to report perceived risks to care and to ask questions if they do not understand what they are told or what they should do.
[2022-06-15] MEDS: HYDROcodone/acetaminophen (*CRX) 5-325 MG TABLET 1 TAB PO (23:51)
[2022-06-16 05:31] VITALS: BP 149/75; PULSE 100; RESP 18; TEMP 36.6; O2SAT 97
[2022-06-16 05:54] VITALS: PULSE 97; RESP 22
[2022-06-16] MEDS: ALBUTEROL SULFATE NEB 2.5 MG/3 ML INH INHALATION ×2 (05:54→20:35)
[2022-06-16 06:02] VITALS: PULSE 94; RESP 20
[2022-06-16] MEDS: HYDROcodone/acetaminophen (*CRX) 5-325 MG TABLET 1 TAB PO ×3 (06:03→21:01)
[2022-06-16 09:21] LABS: Basophils Percent Auto 0.4 % (0.2-1.2); Eosinophils Absolute Auto 0.3 K/mm3 (0-0.3); Eosinophils Percent Auto 2.3 % (0-4.4); Hematocrit 32.2 % (37.0-47.0); Immature Granulocyte Absolute 0.02 K/mm3 (0.00-0.031); Immature Granulocyte Percent A 0.2 % (0-0.5); Lymphocytes Absolute Auto 2.27 K/mm3 (0.9-3.2); Lymphocytes Percent Auto 20.8 % (18.3-44.2); Mean Corpuscular HGB Conc 34.2 g/dl (32-36); Mean Corpuscular Hemoglobin 26.9 pg (26-34); Mean Corpuscular Volume 78.7 fl (80-100); Mean Platelet Volume 11.1 fl (7.4-10.4); Monocytes Absolute Auto 0.9 K/mm3 (0.1-0.6); Monocytes Percent Auto 8.2 % (2.6-8.5); Neutrophils Absolute Auto 7.5 K/mm3 (1.3-6.7); Neutrophils Percent Auto 68.1 % (45.5-73.1); Platelet Count Result 281 k/mm3 (150-375); Red Blood Count 4.09 M/mm3 (4.2-5.4); White Blood Count 10.9 K/mm3 (4.5-10.0)
[2022-06-16 09:29] LABS: Anion Gap 8 mmol/L (8-16); Blood Urea Nitrogen 16 mg/dL (7-17); Calcium 9.6 mg/dL (8.4-10.2); Carbon Dioxide 29 mmol/L (22-30); Chloride 102 mmol/L (98-107); Estimated CRCL calculation 78 ml/min; Estimated Glomerular Filt Rate > 60; Glucose 95 mg/dL (65-110); Potassium 3.1 mmol/L (3.4-5.0); Sodium 139 mmol/L (137-145)
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
[2022-06-16] MEDS: ASPIRIN 81 MG CHEWABLE TABLET PO (11:59)
[2022-06-16] MEDS: CHLORTHALIDONE 25 MG TABLET PO (11:59)
[2022-06-16] MEDS: CHOLECALCIFEROL 1,000 UNITS TABLET 2000 UNITS PO (11:59)
[2022-06-16] MEDS: MENTHOL 10% / METHYL SALICYLATE 15% 57 GM TUBE 1 APPLIC TOPICAL ×2 (12:00→17:02)
[2022-06-16] MEDS: FAMOTIDINE 20 MG TABLET PO ×2 (12:00→20:00)
[2022-06-16] MEDS: LOSARTAN POTASSIUM 50 MG TABLET PO (12:00)
[2022-06-16] MEDS: ENOXAPARIN 40 MG/0.4 ML SYRINGE SUB-Q (12:01)
[2022-06-16] MEDS: POTASSIUM CHLORIDE 20 MEQ PACKET (FOR LIQUID) 40 MEQ PO (12:05)
[2022-06-16 15:30] VITALS: PULSE 70; RESP 16; TEMP 36.4; O2SAT 100
[2022-06-16] MEDS: LACTIC ACID 12% LOTION 225 BTL 1 APPLIC TOPICAL (17:01)
[2022-06-16] MEDS: SILVERGEL (ELTA) 45 ML 1 APPLIC TOPICAL (17:01)
[2022-06-16 20:35] VITALS: PULSE 79; RESP 20; O2SAT 97
[2022-06-16] MEDS: IPRATROPIUM BR 0.02% INH SOLN 0.5 MG/2.5 ML VIAL INHALATION (20:36)
[2022-06-16 20:56] VITALS: BP 148/86; PULSE 81; RESP 18; TEMP 36.5; O2SAT 100
--- NOTE | 2022-06-17 00:16 | PCRCNOTE ---
Pt refuses CPAP, states she doesn't wear or have one at home
[2022-06-17 05:12] VITALS: BP 125/72; PULSE 98; RESP 18; TEMP 36.6; O2SAT 97
[2022-06-17] MEDS: HYDROcodone/acetaminophen (*CRX) 5-325 MG TABLET 1 TAB PO (05:22)
[2022-06-17 07:09] VITALS: PULSE 95; RESP 20
[2022-06-17] MEDS: ALBUTEROL SULFATE NEB 2.5 MG/3 ML INH INHALATION (07:09)
[2022-06-17] MEDS: IPRATROPIUM BR 0.02% INH SOLN 0.5 MG/2.5 ML VIAL INHALATION (07:09)
[2022-06-17] MEDS: LOSARTAN POTASSIUM 50 MG TABLET PO (08:22)
[2022-06-17] MEDS: FAMOTIDINE 20 MG TABLET PO (08:22)
[2022-06-17] MEDS: ENOXAPARIN 40 MG/0.4 ML SYRINGE SUB-Q (08:23)
[2022-06-17] MEDS: LACTIC ACID 12% LOTION 225 BTL 1 APPLIC TOPICAL (08:23)
[2022-06-17] MEDS: SILVERGEL (ELTA) 45 ML 1 APPLIC TOPICAL (08:23)
[2022-06-17] MEDS: MENTHOL 10% / METHYL SALICYLATE 15% 57 GM TUBE 1 APPLIC TOPICAL (08:23)
[2022-06-17] MEDS: ASPIRIN 81 MG CHEWABLE TABLET PO (08:23)
[2022-06-17] MEDS: CHLORTHALIDONE 25 MG TABLET PO (08:23)
[2022-06-17] MEDS: CHOLECALCIFEROL 1,000 UNITS TABLET 2000 UNITS PO (08:23)
[2022-06-17 08:59] LABS: Anion Gap 9 mmol/L (8-16); Blood Urea Nitrogen 14 mg/dL (7-17); Calcium 9.7 mg/dL (8.4-10.2); Carbon Dioxide 30 mmol/L (22-30); Chloride 99 mmol/L (98-107); Estimated CRCL calculation 70 ml/min; Estimated Glomerular Filt Rate > 60; Glucose 86 mg/dL (65-110); Potassium 3.6 mmol/L (3.4-5.0); Sodium 138 mmol/L (137-145)
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
[2022-06-17 14:00] VITALS: BP 133/62; PULSE 68; RESP 20; TEMP 36.8; O2SAT 98
[2022-06-17 15:08] LABS: EDCOVIDSCREEN Negative (Negative)
== END 2022-06-17 18:00 ==
LOC: ANHED 21:27 → ANH3MED 23:05
PROVIDERS: Admitting Provider Internal Medicine; Emergency Provider Nurse Practitioner Family; PCP Family Medicine; Visit Provider Chiropractor
DX: I87.8 Other specified disorders of veins (principal); E21.3 Hyperparathyroidism, unspecified; I10 Essential (primary) hypertension; F03.90 Unspecified dementia, unspecified severity, without behavioral disturbance, psychotic disturbance, mood disturbance, and anxiety; G62.9 Polyneuropathy, unspecified; K21.9 Gastro-esophageal reflux disease without esophagitis; M25.562 Pain in left knee; M25.462 Effusion, left knee; L03.115 Cellulitis of right lower limb; D64.9 Anemia, unspecified; Z20.822 Contact with and (suspected) exposure to COVID-19; M81.0 Age-related osteoporosis without current pathological fracture; R91.8 Other nonspecific abnormal finding of lung field; E55.9 Vitamin D deficiency, unspecified; Z87.891 Personal history of nicotine dependence; Z86.73 Personal history of transient ischemic attack (TIA), and cerebral infarction without residual deficits; Z79.1 Long term (current) use of non-steroidal anti-inflammatories (NSAID); Z79.82 Long term (current) use of aspirin; Z79.51 Long term (current) use of inhaled steroids; Z79.899 Other long term (current) drug therapy; Z82.49 Family history of ischemic heart disease and other diseases of the circulatory system
CPT/HCPCS: 36415; 71045; 73562; 80048; 84443; 85025; 87426; 87636; 94640; 96360; 96361; 96372; 97161; 97166; 99285; A9270; C9803; G0378; J1650; J7030

== ENCOUNTER 2023-12-07 12:47 | Emergency (ER) | payer MEDICARE, SELFPAY ==
--- NOTE | ~2023-12-07 | US_ITS ---
EXAMINATION: US pelvic complete w TV DATE: 12/07/2023 17:06 INDICATION: Postmenopausal vaginal bleeding. TECHNIQUE: Multiple transabdominal sonographic images of the pelvis were obtained. COMPARISON: None. FINDINGS: The uterus measures 10.5 x 5.4 x 6.9 cm. There is no free fluid in the pelvis. The endometrial comple x measures 13 mm in thickness. The ovaries are not visualized. IMPRESSION: 1. Thickened endometrial complex. The differential diagnosis includes endometrial hyperplasia, polyp, and carcinoma. Biopsy is recommended. Reviewed, dictated and finalized at location A. IMPRESSION: 1. Thickened endometrial complex. The differential diagnosis includes endometri al hyperplasia, polyp, and carcinoma. Biopsy is recommended.
[2023-12-07 12:49] VITALS: BP 168/81; PULSE 79; RESP 18; TEMP 36.7; O2SAT 98
[2023-12-07 14:33] VITALS: BP 159/73; PULSE 71; RESP 16; O2SAT 98
[2023-12-07 14:50] LABS: Appearance Urine Clear (Clear); Bacteria Urine None Seen /hpf; Bilirubin Urine Negative (Negative); Blood Urine 1+ (Negative); Color Urine Yellow (Yellow); Glucose Urine UA Negative (Negative); Ketones Urine Negative (Negative); Leukocyte Esterase Ur Negative LEU/UL (Negative); Nitrate Urine Negative (Negative); Non Pathogenic Casts 0-2; Protein Urine Negative (Negative); Specific Grav Ur 1.008 (1.001-1.035); Squamous Epithelial Cell Urine None Seen /hpf (Few); Urobilinogen Urine 0.2 mg/dL (<2.0); WBC Urine 0-5 /hpf (0-3)
--- NOTE | 2023-12-07 15:03 | ED.FEMALEGU ---
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 patient states that symptoms have been present for approximately 2 months, intermittent in nature. She is unsure if it is coming from her vagina or when she urinates. She states she gets assistance with her ADLs at her facility and typically gets changed by staff so she is unsure of when the bleeding occurs and where it is coming from. She denies any pelvic cramping, abdominal pain, dysuria, vaginal discharge. She was reportedly evaluated by her physician today was unsure with the blood was coming from her vagina or urethra and sent her in for evaluation. Patient denies any lightheadedness, shortness of breath, chest pain. Related Data Home Medications Medication Instructions Recorded Confirmed aspirin 81 mg tablet 81 mg PO QAM 06/25/20 06/16/22 ipratropium 0.5 mg-albuterol 3 mg 3 ml inhalation Q4H PRN sob 08/27/21 06/16/22 (2.5 mg base)/3 mL nebulization soln chlorthalidone 25 mg tablet 25 mg PO QAM 06/16/22 06/16/22 cholecalciferol (vitamin D3) 50 50 mcg PO DAILY 06/16/22 06/16/22 mcg (2,000 unit) tablet (Vitamin D3) losartan 50 mg tablet 50 mg PO QAM 06/16/22 06/16/22 Allergies Allergy/AdvReac Type Severity Reaction Status Date / Time No Known Allergies Allergy Verified 12/07/23 12:56 Review of Systems Review of Systems: All systems reviewed & are unremarkable except as noted in HPI and below [facility] Past Medical History Medical History (Updated 12/07/23 @ 17:30 by Shayna Anne MD) Anemia Chronic venous stasis CVA (cerebral vascular accident) Old CVA noted on CT scan from April 2019 Dementia Essential hypertension GERD (gastroesophageal reflux disease) Hyperparathyroidism Lower extremity edema Osteoporosis Peripheral neuropathy Psoriasis Vitamin D deficiency Surgical History Surgical History History of section, classical History of colonoscopy with polypectomy History of right hip replacement (04/2019) History of tonsillectomy Family History Family History (Updated 06/16/22 @ 00:05 by Venessa Mcnally RN) Father Emphysema lung Mother Diabetes mellitus Cancer Sibling Diabetes mellitus Hypertension Chronic kidney disease Lupus Social History Social History Social History: She lives with daughter who is her only child. She is single and is disabled. Patient is a former smoker who quit smoking in 2018. She used to drink a couple of alcoholic beverages a week and but has not done so in many years. She denies illicit substance use. Code status: Full code Smoking packs per day: 0.5 Smoking cigarettes per day: 10.0 Years smoked: 40 Smoking pack-years: 20.00 Smoking status: Former smoker Tobacco type: cigarettes Alcohol intake: never Substance use: never Living arrangements: with family Additional living arrangements comments: Lives with Daughter Kirstie Occupation/Education: retired Gender identity (if verbalized by the patient): Female Spiritual care concerns: No Exam Narrative: GENERAL: Well-appearing, well-nourished, and in no acute distress. HEAD: Normocephalic, atraumatic. EYES: PERRLA and EOMI. ENT: Nares clear. Mucous membranes moist. NECK: Supple. CHEST: Clear to auscultation. No respiratory distress. HEART: Regular rate and rhythm. Normal peripheral pulses. ABDOMEN: Soft, nontender, nondistended. 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 On speculum exam patient has trace blood in the vaginal vault, with straight cath UA she
[2023-12-07 15:07] LABS: Add Urine Microscopic? YES
[2023-12-07 15:25] VITALS: BP 180/82; PULSE 67; RESP 13; O2SAT 100
[2023-12-07 15:31] LABS: Basophils Percent Auto 0.3 % (0.2-1.2); Eosinophils Absolute Auto 0.3 K/mm3 (0-0.3); Eosinophils Percent Auto 2.9 % (0-4.4); Hematocrit 34.8 % (37.0-47.0); Hemoglobin 11.8 g/dL (12.0-15.0); Immature Granulocyte Absolute 0.04 K/mm3 (0.00-0.031); Immature Granulocyte Percent A 0.4 % (0-0.5); Lymphocytes Absolute Auto 2.47 K/mm3 (0.9-3.2); Lymphocytes Percent Auto 25.8 % (18.3-44.2); Mean Corpuscular HGB Conc 33.9 g/dl (32-36); Mean Corpuscular Hemoglobin 27.7 pg (26-34); Mean Corpuscular Volume 81.7 fl (80-100); Mean Platelet Volume 11.2 fl (7.4-10.4); Monocytes Absolute Auto 0.7 K/mm3 (0.1-0.6); Monocytes Percent Auto 7.4 % (2.6-8.5); Neutrophils Percent Auto 63.2 % (45.5-73.1); Platelet Count Result 282 k/mm3 (150-375); Red Blood Count 4.26 M/mm3 (4.2-5.4); Red Cell Distribution Width 14.6 % (11.5-14.5); White Blood Count 9.6 K/mm3 (4.5-10.0)
[2023-12-07 15:42] LABS: Alanine Aminotransferase 19 U/L (6-35); Albumin Level 4.1 g/dL (3.5-5.1); Alkaline Phosphatase 122 U/L (38-126); Anion Gap 4 mmol/L (4-12); Aspartate Amino Transferase 26 U/L (14-36); Bilirubin,Total 0.6 mg/dL (0.2-1.3); Blood Urea Nitrogen 13 mg/dL (7-17); Calcium 10.3 mg/dL (8.4-10.2); Carbon Dioxide 29 mmol/L (22-30); Chloride 108 mmol/L (98-107); Estimated CRCL calculation 80 ml/min; Estimated Glomerular Filt Rate > 60; Glucose 120 mg/dL (65-110); Potassium 4.2 mmol/L (3.4-5.0); Sodium 141 mmol/L (137-145)
[2023-12-07 16:55] VITALS: BP 180/97; PULSE 72; RESP 18; O2SAT 98
[2023-12-07 17:55] VITALS: BP 166/89; PULSE 74; RESP 20; O2SAT 99
[2023-12-07 17:58] VITALS: BP 169/74; PULSE 74; RESP 20; O2SAT 99
== END 2023-12-07 18:27 ==
PROVIDERS: Emergency Provider Student in an Organized Health Care Education/Training Program; PCP Family Medicine
DX: N93.8 Other specified abnormal uterine and vaginal bleeding (principal); F03.90 Unspecified dementia, unspecified severity, without behavioral disturbance, psychotic disturbance, mood disturbance, and anxiety; I10 Essential (primary) hypertension; E21.3 Hyperparathyroidism, unspecified; E55.9 Vitamin D deficiency, unspecified; D64.9 Anemia, unspecified; G62.9 Polyneuropathy, unspecified; L40.9 Psoriasis, unspecified; K21.9 Gastro-esophageal reflux disease without esophagitis; M81.0 Age-related osteoporosis without current pathological fracture; Z96.641 Presence of right artificial hip joint; Z86.73 Personal history of transient ischemic attack (TIA), and cerebral infarction without residual deficits; Z87.891 Personal history of nicotine dependence; Z79.82 Long term (current) use of aspirin
CPT/HCPCS: 36415; 76830; 76856; 80053; 81001; 85025; 99284